=== PATIENT | female | born 1940 | race Caucasian/White ===

== ENCOUNTER 2018-09-20 10:48 | Day surgery (SDC) | payer MEDICARE ==
[2018-09-19 12:56] VITALS: BMI 44.2
[2018-09-20] MEDS ORDERED: Midazolam HCl 2 mg/2 ml Vial ONE (13:09)
[2018-09-20] MEDS ORDERED: Ketamine 50 MG/ML (10ML VIAL) ONE (13:10)
[2018-09-20] MEDS ORDERED: PROPOFOL 200 MG/20 ML VIAL ONE (16:41)
--- NOTE | 2018-09-20 19:58 | OP ---
DATE OF PROCEDURE: 09/20/2018 TITLE OF PROCEDURES: Esophagogastroduodenoscopy with biopsy. PREPROCEDURE DIAGNOSES: 1. Chronic right upper quadrant abdominal pain. 2. History of reflux. 3. History of peptic ulcer disease. POSTPROCEDURE DIAGNOSES: 1. Exam to second portion of duodenum. 2. Thickened fold in the distal esophagus from 36 to 39 cm from the incisors, biopsied. 3. No discrete esophagitis or esophageal ulcer identified. 4. Mild patchy erythema, distal stomach, biopsied. 5. Normal duodenum. 6. No evidence of gastric or duodenal ulcers. PROCEDURE IN DETAIL: Written informed consent was obtained. The patient was brought to the endoscopy suite. Total intravenous anesthesia was provided by Dr. Earlene Erazo and associates. The patient was placed in the left lateral decubitus position. A bite block was inserted into the mouth. When the patient was adequately sedated, a Pentax video therapeutic gastroscope was introduced into the oral cavity and the esophagus was carefully intubated. The gastroscope was advanced under direct visualization to the second portion of the duodenum. Endoscopic findings revealed a somewhat thickened fold in the distal esophagus extending from 36 to 39 or 40 cm from the incisors. When probed with the biopsy forceps, the fold was soft and pliable and the overlying mucosa was intact. Biopsies were obtained for histology. No esophageal ulcer was seen. The stomach was entered and carefully examined. This included a retroflex view of the cardia and fundus. Mild patchy erythema without erosion or ulcer was identified in the gastric antrum and prepyloric area. Biopsies were obtained for histology. There was no evidence of active bleeding or gastric ulceration. The duodenum from the bulb to the second portion was then examined and appeared grossly normal. The stomach was decompressed as the endoscope was completely removed from the patient. She was transferred to the PACU for postprocedure monitoring. There were no immediate complications. RECOMMENDATIONS: 1. Await biopsy results. 2. Ask the patient to call me in 1 week for biopsy results. 3. Continue Dexilant 60 mg daily. 4. Eat smaller and more frequent meals. 5. Follow up in GI clinic in 6 weeks. Job ID: [id number]
== END 2018-09-20 15:35 | disposition home or self-care (01) ==
LOC: SDC 10:48
PROVIDERS: ATTEND Internal Medicine Gastroenterology
PROC: 0DB58ZX Excision of Esophagus, Via Natural or Artificial Opening Endoscopic, Diagnostic (ICD-10-PCS; principal; 2018-09-20)
DX: R10.11 Right upper quadrant pain (principal); K31.9 Disease of stomach and duodenum, unspecified; K21.9 Gastro-esophageal reflux disease without esophagitis; R19.7 Diarrhea, unspecified; F41.9 Anxiety disorder, unspecified; M19.90 Unspecified osteoarthritis, unspecified site; J45.909 Unspecified asthma, uncomplicated; G89.29 Other chronic pain; M54.9 Dorsalgia, unspecified; I10 Essential (primary) hypertension; M35.3 Polymyalgia rheumatica; N28.9 Disorder of kidney and ureter, unspecified; G47.30 Sleep apnea, unspecified; Z79.82 Long term (current) use of aspirin; Z79.899 Other long term (current) drug therapy; Z88.0 Allergy status to penicillin; Z88.2 Allergy status to sulfonamides; Z88.8 Allergy status to other drugs, medicaments and biological substances
CPT/HCPCS: 88305; 88312; J2250; J2704

== ENCOUNTER 2019-12-06 20:30 | Inpatient (IN) | payer MEDICARE, OTHER ==
[2019-12-06] MEDS ORDERED: Vancomycin 1 GM/200 ML BAG ONE (20:59)
[2019-12-06 21:53] LABS: #Eosinphils 0.2 thou/uL (0.0-0.7); #Lymphocytes 2.2 thou/uL (1.20-3.40); #Neutrophils 7.1 thou/uL (1.40-6.50); %Basophils 0.1 % (0.0-1.0); %Eosinophils 1.6 % (0.0-10.0); %Lymphocytes 21.2 % (21.0-51.0); %Monocytes 9.5 % (0.0-10.0); %Neutrophils 67.7 % (42.0-75.0); Hemoglobin 9.1 g/dL (12.0-16.0); Mean Corpuscular HGB CONC 31.6 g/dL (32.0-36.0); Mean Corpuscular Hemoglobin 26.9 pg (27.0-31.0); Mean Platelet Volume 8.4 fL (7.4-10.4); Platelet Count 162 thou/uL (130-400); RBC Distribution Width 15.2 % (11.5-14.5); Red Blood Cell (RBC) Count 3.38 mill/uL (4.20-5.40); White Blood Cell (WBC) Count 10.5 thou/uL (4.8-10.8)
--- NOTE | 2019-12-06 21:56 | RAD ---
FRONTAL RADIOGRAPH CHEST: 12/06/19 COMPARISON: 08/06/19. HISTORY: Cellulitis. Bodyaches and chills. FINDINGS: Stable enlargement of the cardiac silhouette. No pneumothorax. Right lung appears clear. There is haz y increased density in the left base with blunting of the left costophrenic angle, suggesting nonspec ific pleural and parenchymal density, similar when compared to 08/06/19. IMPRESSION: Mild increased density in the lateral left base which could signify soft tissue attenuation, pleural thickening, volume loss, or infiltrate. Follow-up PA and lateral imaging of the chest following treat ment advised. POS: [facility]
[2019-12-06 22:00] LABS: INR-International Normal Ratio 1.4; Prothrombin Time 17.2 sec (12.0-14.7)
[2019-12-06 22:01] LABS: PTT 38.1 sec (22.9-36.1)
[2019-12-06 22:15] LABS: ALT (SGPT) 16 U/L (8-55); AST (SGOT) 17 U/L (5-34); Albumin 2.9 g/dL (3.4-4.8); Alkaline Phosphatase 55 U/L (40-110); Anion Gap 13 mmol/L (10-20); BUN (Urea Nitrogen) 29 mg/dL (9.8-20.1); Bilirubin, Total 0.7 mg/dL (0.2-1.2); Calc. Creatinine Clearance 0 mL/min (70-130); Calcium 8.4 mg/dL (7.8-10.44); Carbon Dioxide 25 mmol/L (23-31); Chloride 105 mmol/L (98-107); Estimated GFR-MDRD 36; Globulin 2.6 g/dL (2.4-3.5); Glucose 89 mg/dL (83-110); Potassium 3.6 mmol/L (3.5-5.1); Protein, Total 5.5 g/dL (6.0-8.3); Sodium 139 mmol/L (136-145)
--- NOTE | 2019-12-07 00:31 | PDOC.FPRHP ---
- History of Present Illness Chief Complaint: Fevers, Chills, Rash History of Present Illness: Patient is a 79 y/o female with a complex PMH and poor medical insight who presents to the ED for a chief complaint of fevers, chills, weakness , LE erythema, LE pain and general malaise. Patient states that she has felt like this for several days, and has noticed increased difficulty in completing her ADLs, most notably ambulation. Patient states that she typically walks with a walker at home, but has found it increasingly difficulty due to her weakness and LE pain. Patient also states that she has noticed a rash that has appeared on both of her LEs that has been slowly spreading. Patient states that all symptoms have been present for several days. Patient denies any recent illness, although she does admit to having red, swollen legs several months prior due to A-Fib. ED Course: While in the ED, patient was given 1L NS and Vancomycin 1 g IV. EKG: NSR w/ PACs, equivocal 1st Degree AV Block CXR: Mild increased density in the lateral left base which could signify soft tissue attenuation, pleural thickening, volume loss, or infiltrate - consistent with 08/06/2019 CXR. - Allergies/Adverse Reactions Allergies Allergy/AdvReac Type Severity Reaction Status Date / Time adhesive Allergy Verified 12/07/19 02:54 erythromycin base Allergy Verified 08/19/19 19:07 hydrocodone [From Lortab] Allergy Verified 08/19/19 19:07 metolazone [From Zaroxolyn] Allergy Verified 08/19/19 19:07 Penicillins Allergy Verified 08/19/19 19:07 Sulfa (Sulfonamide Allergy Verified 08/19/19 19:07 Antibiotics) tramadol [From Ultram] Allergy Verified 08/19/19 19:07 - Home Medications Medication Instructions Recorded Confirmed Type Aspirin [Aspir-Low] 2 tab PO DAILY 09/19/18 09/19/18 History Azelastine/Fluticasone [Dymista 1 spray INH BID 09/19/18 09/19/18 History Nasal [place]] Clopidogrel Bisulfate [Plavix] 75 mg PO DAILY 09/19/18 09/19/18 History DULoxetine [Cymbalta] 120 mg PO HS 09/19/18 09/19/18 History Dexlansoprazole [Dexilant] 1 tab PO QAM 09/19/18 12/07/19 History HYDROmorphone HCl [Hydromorphone 1 tab PO TID PRN 09/19/18 12/07/19 History HCl] Irbesartan 1 tab PO QAM 09/19/18 09/19/18 History Levetiracetam [levETIRAcetam] 500 mg PO BID 09/19/18 09/19/18 History Montelukast Sodium [Singulair] 10 mg PO HS 09/19/18 12/07/19 History Nitroglycerin [Nitro-Dur Patch] 0.2 mg TD DAILY 09/19/18 09/19/18 History Potassium Chloride 10 meq PO HS 09/19/18 12/07/19 History Pramipexole Di-HCl [Mirapex] 2 tab PO HS 09/19/18 12/07/19 History Spironolactone 1 tab PO ASDIR 09/19/18 12/07/19 History Tapentadol HCl [Nucynta ER] 1 tab PO BID 09/19/18 12/07/19 History predniSONE [Prednisone] 5 mg PO BID-WM 09/19/18 12/07/19 History Aluminum & Magnesium Hydroxide 30 ml PO Q4H PRN 12/07/19 12/07/19 History [Maalox] Apixaban [Eliquis] 5 mg PO BID 12/07/19 12/07/19 History Carvedilol [Coreg] 6.25 mg PO ASDIR 12/07/19 12/07/19 History Cholecalciferol (Vitamin D3) 1,000 unit PO DAILY 12/07/19 12/07/19 History [Vitamin D3] Cyanocobalamin (Vitamin B-12) 1,000 mcg PO DAILY 12/07/19 12/07/19 History [Vitamin B-12] Diltiazem HCl 30 mg PO BID-PC 12/07/19 12/07/19 History Dronedarone HCl [Multaq] 400 mg PO BID-PC 12/07/19 12/07/19 History Fluticasone/Vilanterol [Breo 1 inh IH DAILY 12/07/19 12/07/19 History Ellipta] Furosemide [Lasix] 40 mg PO ASDIR 12/07/19 12/07/19 History Hydrochlorothiazide 1 tab PO ASDIR 12/07/19 12/07/19 History Ipratropium/Albuterol Sulfate 3 ml NEB Q6H PRN 12/07/19 12/07/19 History Losartan Potassium 50 mg PO BID 12/07/19 12/07/19 History Mag Hydrox/Aluminum Hyd/Simeth 5 ml PO Q4H PRN 12/07/19 12/07/19 History [Maalox Advanced Suspension] Nitroglycerin 0.4 mg SL ASDIR PRN 12/07/19 12/07/19 History Polyethylene Glycol 3350 [Miralax] 17 gm PO DAILY PRN 12/07/19 12/07/19 History Vitamin E 400 unit PO ASDIR 12/07/19 12/07/19 History Zinc 50 mg PO DAILY 12/07/19 12/07/19 History hydrOXYzine HCl [Hydroxyzine HCl] 25 mg PO Q6H PRN 12/07/19 12/07/19 History - History PMHx: A-Fib PSHx: Cholecystectomy FHx: Mother (DM2) Social: Denies x3. Lives at home with her . Code: Full Note: Patient is a regrettably poor historian and has limited medical insight. - Review of Systems General: reports: fever/chills, fatigue Eyes: reports: vision changes ENT: denies: rhinorrhea Respiratory: reports: shortness of breath, exercise intolerance. denies: cough Cardiovascular: reports: edema. denies: chest pain, palpitation Gastrointestinal: denies: nausea, vomiting, diarrhea, constipation, abdominal pain Genitourinary: denies: dysuria, polyuria Skin: reports: rashes Musculoskeletal: reports: pain, swelling Neurological: denies: syncope - Vital signs BP: [128/89] HR: [82] RR: [21] Tmax: [101.9] Pox: [99]% on [Room] Wt: [107 kg ] - Physical Exam Constitutional: NAD, awake, alert and oriented, well developed HEENT: normocephalic and atraumatic, PERRLA, EOMI, conjunctiva clear, no scleral icterus, grossly normal vision, grossly normal hearing, normal nasal mucosa, MMM, oropharynx clear -HEENT: Poor dentition Neck: supple, FROM, no LAD, no thyromegaly Chest: no-tender to palpation, no lesions Heart: RRR, normal S1/S2, pulses present, other (3/6 Systolic Ejection Murmur) Lungs: CTAB, no respiratory distress, good air movement, no rales/rhonchi, no wheezing, no retractions Abdomen: soft, non-tender, bowel sounds present, no masses/distention Neurological: no focal deficit Skin: other (Circumferential rash from the ankles to the knees on both LEs, left > right. No obvious lesions or infectious points of entry. No bleeding or oozing. Diffuse TTP.) Heme/Lymphatic: no LAD Psychiatric: other (Poor historian.) FMR H&P: Results - Labs Result Diagrams: 12/07/19 02:15 12/07/19 02:15 Lab results: WBC 10.5 thou/uL (4.8-10.8) 12/06/19 21:36 Hgb 9.1 g/dL (12.0-16.0) L 12/06/19 21:36 Hct 28.8 % (36.0-47.0) L 12/06/19 21:36 MCV 85.0 fL (78.0-98.0) 12/06/19 21:36 Plt Count 162 thou/uL (130-400) 12/06/19 21:36 Neutrophils % 67.7 % (42.0-75.0) 12/06/19 21:36 Sodium 139 mmol/L (136-145) 12/06/19 21:36 Potassium 3.6 mmol/L (3.5-5.1) 12/06/19 21:36 Chloride 105 mmol/L (98-107) 12/06/19 21:36 Carbon Dioxide 25 mmol/L (23-31) 12/06/19 21:36 BUN 29 mg/dL (9.8-20.1) H 12/06/19 21:36 Creatinine 1.41 mg/dL (0.6-1.1) H 12/06/19 21:36 Glucose 89 mg/dL (83-110) 12/06/19 21:36 Lactic Acid 0.7 mmol/L (0.5-2.2) 12/06/19 21:36 Calcium 8.4 mg/dL (7.8-10.44) 12/06/19 21:36 Total Bilirubin 0.7 mg/dL (0.2-1.2) 12/06/19 21:36 AST 17 U/L (5-34) 12/06/19 21:36 ALT 16 U/L (8-55) 12/06/19 21:36 Alkaline Phosphatase 55 U/L (40-110) 12/06/19 21:36 Serum Total Protein 5.5 g/dL (6.0-8.3) L 12/06/19 21:36 Albumin 2.9 g/dL (3.4-4.8) L 12/06/19 21:36 - EKG Interpretation EKG: NSR w/ PACs, and equivocal 1st Degree AV Block - Radiology Interpretation Chest x-ray Status: image reviewed by me, report reviewed by me (See ER Course) FMR H&P: A/P - Problem List (1) Sepsis Current Visit: Yes Status: Acute Code(s): A41.9 - SEPSIS, UNSPECIFIED ORGANISM Qualifiers: Sepsis type: sepsis due to unspecified organism Sepsis acute organ dysfunction status: with acute organ dysfunction Severe sepsis acute organ dysfunction type: acute renal failure Acute renal failure type: unspecified Severe sepsis shock status: without septic shock Qualified Code(s): A41.9 - Sepsis, unspecified organism; R65.20 - Severe sepsis without septic shock; N17.9 - Acute kidney failure, unspecified (2) A-fib Current Visit: Yes Status: Chronic Code(s): I48.91 - UNSPECIFIED ATRIAL FIBRILLATION (3) SERENA (acute kidney injury) Current Visit: Yes Status: Acute Code(s): N17.9 - ACUTE KIDNEY FAILURE, UNSPECIFIED (4) Obesity Current Visit: Yes Status: Chronic Code(s): E66.9 - OBESITY, UNSPECIFIED - Plan Patient is a 79 y/o female with a PMH significant for A-Fib who presents to the ED for evaluation of fevers, chills and LE weakness and rash. # Sepsis -Documented fever (101.9 F) with tachycardia and tachypnea in ED -Suspect LEs as likely source of infection - Bilateral Cellulitis vs. Thrombophlebitis vs. Erysipelas -Patient denies known PMH significant for CHF or DM2 -s/p Vancomycin 1 g in ED - will continue -WBC: 10.5 w/ Left Shift -Procal: Pending -Lactic Acid: 0.7 -BNP: 155 - baseline unknown -D-Dimer: 0.29 -BCx: Pending -UCx: Pending -PT/OT Consults: Pending # SERENA vs. CKD -Cr: 1.41 - baseline unknown -Will order FeNa studies -Will renally dose all medications # Normocytic Anemia -H.1 / Hct: 28.8 -Ferritin: Pending -TIBC: Pending -%TIBC: Pending -Serum Fe: # A-Fib -Patient states that she is on Eliquis but is unsure of dosage -INR: 1.4 -Will restart home Eliquis regimen and titrate accordingly based on weight PCP: CC Code: DNAR Diet: HH VTE PPx: Home Eliquis Activity: Strict Bed Rest Dispo: Patient is currently stable and admitted to the Medical Floor for ongoing evaluation for Sepsis, like secondary to an infection of the lower extremities. Will await additional lab results and continue ABx as per above. Will also try to contact patient's pharmacy or [id number] in order to understand more about PMH and current medication regimen. Expected LOS > 48H FMR H&P: Upper Level - Plan Date/Time: 12/07/19 0029 I, [], have evaluated this patient and agree with findings/plan as outlined by technology development intern resident. Pertinent changes/additions are listed here. Addendum - Attending - Attending Attestation Date/Time: 12/07/19 0729 I personally evaluated the patient and discussed the management with Dr. Sheriff. I agree with the History, Examination, Assessment and Plan documented above with any addition or exceptions noted below. Patient with currently unknown PMH here with b/l LE redness and pain. She has 2 + edema, but also evidence of cellulitis on exam. She has low grade temperatures , vitals otherwise stable. She received IVF in the ED and reports taking a "fluid pill" at home, suspect she may have some volume overload. Will administer Lasix and med rec ZAY. Continue abx and await cultures. She also reports history of CHRISSIE and we will attempt to get her CPAP tonight.
[2019-12-07] MEDS ORDERED: Ondansetron PF 4 MG/2 ML Vial IVP PRN (00:42)
[2019-12-07] MEDS ORDERED: Ondansetron ODT 4 MG TAB SL PRN (00:42)
[2019-12-07] MEDS ORDERED: Ondansetron ODT 4 MG TAB PO PRN (01:04)
[2019-12-07] MEDS ORDERED: Calcium Carbonate 500 MG ChewTAB PO PRN (01:04)
[2019-12-07 01:45] VITALS: BMI 38.9
[2019-12-07 02:21] LABS: #Eosinphils 0.2 thou/uL (0.0-0.7); #Lymphocytes 2.2 thou/uL (1.20-3.40); #Neutrophils 6.7 thou/uL (1.40-6.50); %Basophils 0.3 % (0.0-1.0); %Eosinophils 1.7 % (0.0-10.0); %Lymphocytes 21.6 % (21.0-51.0); %Monocytes 9.9 % (0.0-10.0); %Neutrophils 66.5 % (42.0-75.0); Hemoglobin 10.1 g/dL (12.0-16.0); Mean Corpuscular HGB CONC 32.2 g/dL (32.0-36.0); Mean Corpuscular Hemoglobin 27.6 pg (27.0-31.0); Mean Corpuscular Volume 85.5 fL (78.0-98.0); Mean Platelet Volume 7.7 fL (7.4-10.4); Platelet Count 142 thou/uL (130-400); RBC Distribution Width 15.1 % (11.5-14.5); Red Blood Cell (RBC) Count 3.66 mill/uL (4.20-5.40); White Blood Cell (WBC) Count 10.1 thou/uL (4.8-10.8)
[2019-12-07 02:38] LABS: Iron 21 ug/dL (50-170); Iron Binding Capacity, Total 343 mcg/dL (265-497)
[2019-12-07] MEDS: Sodium Chloride 0.9% 1,000 ML IV SCH ×2 (02:40→11:21)
[2019-12-07 02:41] LABS: Anion Gap 17 mmol/L (10-20); BUN (Urea Nitrogen) 26 mg/dL (9.8-20.1); Calc. Creatinine Clearance 56 mL/min (70-130); Calcium 8.5 mg/dL (7.8-10.44); Carbon Dioxide 24 mmol/L (23-31); Chloride 105 mmol/L (98-107); Estimated GFR-MDRD 37; Glucose 82 mg/dL (83-110); Potassium 3.7 mmol/L (3.5-5.1); Sodium 142 mmol/L (136-145)
--- NOTE | 2019-12-07 04:43 | PDOC.BPN ---
- Brief Progress Note At approximately 0415, the Resident Night Team was notified that patient was experiencing increased work of breathing and was tachycardic to the 120s. The Resident Night Team immediately requested a STAT EKG, Trops, Mg and Phos and proceeded to evaluate the patient at bedside. The patient was found to be in moderate respiratory distress in comparison to the patient's previous evaluation , and was visibly uncomfortable and relying on accessory muscles of respiration to breath. Physical exam was notable for diffuse expiratory wheezing throughout the middle to lower lung kovacs, and the patient complained only of SOB without endorsing chest pain, visual disturbances, nausea or ABD pain. RT was notified and a verbal order was given for [place]. Will continue to monitor the situation closely and alter the plan of care as needed.
[2019-12-07 05:35] LABS: Magnesium 1.8 mg/dL (1.6-2.6); Phosphorus 3.5 mg/dL (2.3-4.7)
[2019-12-07 05:41] LABS: Troponin I 0.101 ng/mL (< 0.028)
--- NOTE | 2019-12-07 05:59 | PDOC.FM ---
- Subjective Subjective: Pt states she was at home yesterday and was feeling short of breath, very weak and had LE pain. She said her temp at home was 102F. She says her breathing is better today after the duoneb. She was sleepy during exam. - Objective Vital Signs & Weight: Vital Signs (12 hours) Pulse Resp Pulse Ox 12/07/19 04:40 106 H 32 H 99 Weight Weight 106.282 kg Result Diagrams: 12/07/19 09:04 12/07/19 09:04 Phys Exam - Physical Examination tachypnic HEENT: moist MMs Neck: no JVD, supple Respiratory: no wheezing tachypnic Cardiovascular: RRR 2/6 systolic murmur, best heard right sternal border Gastrointestinal: soft, non-tender Musculoskeletal: pulses present Neurological: non-focal Psychiatric: normal affect Deviation from normal: bilat LE erythema, worse on left Dx/Plan - Plan Plan: Patient is a 79 y/o female with a PMH significant for A-Fib who presents to the ED for evaluation of fevers, chills and LE weakness and rash. # Sepsis 2/2 Cellulitis -Documented fever (101.9 F) with tachycardia and tachypnea in ED -Patient denies known PMH significant for CHF or DM2, will obtain records from REHABILITATION DIRECTOR -Vancomycin and Clindamycin -WBC: 10.5 w/ Left Shift -Procal: 0.44 -Lactic Acid: 0.7 -BNP: 155 - baseline unknown -D-Dimer: 0.29 -BCx and UCx pending -PT/OT Consults: Pending #Tachypnea -became tachypnic overnight. Likely due to fluid overload. Questionable hx of CHF -gave one time lasix 40mg, will reassess # SERENA vs. CKD -Cr: 1.41-->1.37 - baseline unknown -Will order FeNa studies -Will renally dose all medications # Normocytic Anemia -Fe 21 -unsure of hx of anemia and if on any medications, will obtain records from REHABILITATION DIRECTOR # A-Fib -Patient states that she is on Eliquis but is unsure of dosage -INR: 1.4 -Will restart home Eliquis regimen and titrate accordingly based on weight PCP: CC Code: DNAR Diet: HH VTE PPx: Home Eliquis Dispo: Pt admitted to medical, inpatient for Sepsis 2/2 cellulitis, stable, LOS> 48hrs Addendum - Attending - Attending Attestation Date/Time: 12/07/19 0803 I personally evaluated the patient and discussed the management with Dr. Valente. I agree with the History, Examination, Assessment and Plan documented above with any addition or exceptions noted below. Patient reports being tired, but feeling somewhat better. She appears volume overloaded on exam. Will diurese mildly until we can figure out her home med regimen. Continue Vanc for LE cellulitis. Further mgmt pending determination of chronic med problems and clinical course.
[2019-12-07] MEDS ORDERED: Furosemide 40 MG/4 ML VIAL SLOW IVP SCH (07:15)
[2019-12-07] MEDS ORDERED: Prevnar 13-Val Conj/PF 0.5 ML SYRINGE IM ONE (09:00)
[2019-12-07] MEDS ORDERED: Apixaban 2.5 MG TAB PO SCH (09:00)
[2019-12-07] MEDS ORDERED: Apixaban 5 MG TAB PO SCH (09:00)
[2019-12-07 09:15] LABS: Hemoglobin 9.6 g/dL (12.0-16.0); Platelet Count 153 thou/uL (130-400)
[2019-12-07] MEDS ORDERED: Enoxaparin Sodium 100 MG/ML SYRINGE SC SCH (11:30)
--- NOTE | 2019-12-07 12:27 | RAD ---
CHEST 1 VIEW: Date: 12/07/2019 HISTORY: Chest pain. COMPARISON: 12/06/2019. FINDINGS: Minimal cardiomegaly. Stable blunting in the left costophrenic angle and minimal linear and parenchym al changes in the right mid lung zone. IMPRESSION: Stable cardiomegaly and blunting in the left costophrenic angle with minimal increased markings, but no confluent pneumonia, overt edema, pleural effusion, or other acute process. POS: [facility]
[2019-12-07] MEDS: Clindamycin/D5W 300 MG in Premix Bag 1 BAG IVPB SCH ×2 (13:53→18:12)
[2019-12-07 15:44] LABS: CKMB 2.2 ng/mL (0-6.6)
--- NOTE | 2019-12-07 20:22 | CON ---
DATE OF CONSULTATION: 12/07/2019 INDICATION FOR CONSULTATION: A 79-year-old female with multiple medical problems who was seen in the hospital for lower extremity edema and cellulitis, but then complained of some chest uncomfortable feeling. She did not describe it as pain. However, her cardiac enzymes are indeterminate. Her troponin I was 0.1, increased up to 0.8. She recently had a cardiac catheterization back in August of this year over [facility] by Dr. Victor Hugo Jean. We do not have those records available at this time, but otherwise she appears to be relatively stable. She does have reproducible chest pain also on my examination in that same area and she said that she feels an uncomfortable feeling when she tries to take a deep breath, but does have chest wall tenderness. She also has a long history of fibromyalgia, which may be contributing some to the uncomfortable feeling, but certainly it would be advisable to obtain the recent cardiac catheterization to determine the extent of any possible underlying coronary artery disease. At this time, the most significant problem appears to be her cellulitis in the lower extremities. I have seen this lady many years ago due to chronic lower extremity edema. She underwent a left greater saphenous vein ablation by me. I did not feel that further intervention would be indicated as she did not receive very much benefit from the procedure and then she apparently was seen by a physician in [place]. I believe he comes from [place] who then subsequently proceeded to close down the rest of the veins in her legs and she said she had several different procedures performed and still the legs did not have any improvement. It is unlikely at this time that she has coronary artery disease that she would have any conduits left for bypass surgery if it is needed. PAST MEDICAL HISTORY: Significant for peptic ulcer disease, possible myocardial infarction in the past, chronic pain syndrome, polymyalgia rheumatica, intermittent cellulitis, lymphedema. She has had TIAs in the past. She has gastroesophageal reflux disease. She has COPD in the form of asthma. She has morbid obesity. She has also had a fracture of the left wrist and she had the neurostimulator removed. She has history of giant cell arteritis. She has had some thyroid nodules. She has also had a breast biopsy and she has had a left eyebrow basal cell carcinoma removed. PAST SURGICAL HISTORY: Include appendectomy, bladder surgery, breast biopsy. She has had cervical disk fusions. She has had a cholecystectomy, a d and C x2, hiatal hernia. She has had internal fixation of her ankle in 1991. She had venous ablation by me in 2011 and subsequently had multiple further other ablations in [place] in subsequent years. She has had low back surgery. She has had a nerve stimulator placed in the back. She has had bilateral cataract surgery. MEDICATIONS: Include: 1. Dexilant. 2. MiraLAX powder. 3. Eliquis 5 mg b.i.d. 4. Coreg 6.25 mg b.i.d. 5. Pramipexole 0.5 mg tablets once a day. 6. Aldactone 25 mg on Monday, Monday, Fridays. 7. Lasix 40 mg b.i.d. 8. Maalox. 9. Prednisone 5 mg b.i.d. 10. Potassium 10 mEq daily. 11. She also takes Nucynta ER 200 mg tablets every 12 hours. 12. Dilaudid as needed 2 or 3 times a day. 13. She is on Singulair 10 mg tablets. 14. Hydroxyzine HCL 25 mg every 6 hours p.r.n. as needed. 15. Multaq 400 mg b.i.d. 16. Diltiazem 30 mg b.i.d. 17. Losartan 50 mg b.i.d. 18. Breo Ellipta nebulizer. 19. Nitroglycerin p.r.n. as needed. 20. Albuterol/ipratropium inhaler. 21. Maalox as needed. 22. Vitamin B12. 23. Vitamin D3. 24. Zinc. 25. Vitamin E. 26. She also takes I believe folic acid. ALLERGIES: SHE IS ALLERGIC TO TYLENOL, ADHESIVE, ERYTHROMYCIN, FENTANYL, HYDROCODONE, METOLAZONE, PENICILLIN, SULFA, TRAMADOL, VICODIN, ZAROXOLYN. REVIEW OF SYSTEMS: EYES: She says that she does have some problems with the left eye. She feels that she has some nodules at times but is not always present. It comes and goes. PULMONARY: She complains of some shortness of breath occasionally, but no significant problems. No significant changes. CARDIOVASCULAR: She has complained of the uncomfortable feeling in her chest and occasional palpitations, but has had no santosh chest pain. She denies any new GI complaints or complaints. EXTREMITIES: She did complain of the swelling in her legs to the point that she is almost unable to walk due to the discomfort from the feet all the way up to the knees. She has been going to wound care in [place] until the COVID virus, but since that time has not been back. Previously the legs were wrapped and she was getting some improvement. PHYSICAL EXAMINATION: GENERAL: Reveals an elderly female. She is in no acute distress at this time. She is alert. She is oriented. She is very pleasant. VITAL SIGNS: Her blood pressure was 127/59, heart rate is 90 and shows a sinus rhythm, temperature is 99, respiratory rate is 20, O2 saturations 96%. HEENT: Shows the head to be normocephalic and atraumatic. Carotid pulses are present. I cannot hear any bruits. CHEST: Actually appeared to be clear to auscultation. I did not hear any significant rales, rhonchi, or wheezing. CARDIOVASCULAR: Reveals a regular rate and rhythm at this time. There were no significant murmurs, heaves, thrills, bruits or rubs. ABDOMINAL: Shows morbid obesity. Positive bowel sounds are present. There was no organomegaly or masses noted. EXTREMITIES: Difficult to palpate femoral pulses. I could not palpate the pedal pulses due to the edema. She does also has bilateral lower extremity erythema and redness with some edema compatible with cellulitis. The left leg appears to be more significant than the right. NEUROLOGICAL: She appears to be intact. There were no gross focal motor deficits noted. The legs were history of giant cell arteritis. She has had some thyroid nodules. She has also had a breast biopsy and she has had a left eyebrow basal cell carcinoma removed. not wrapped. LABORATORY DATA: Shows WBC of 10.1, hemoglobin is 9.6, hematocrit 30.6, platelet count is 153,000. INR is 1.4. Her sodium was 142, potassium 3.7, BUN 26, creatinine was 1.37, decreased down to 1.28, blood sugar was 82. Troponin I as noted above was 0.101, increased up to 0.860. DIAGNOSTIC STUDIES: Her EKG shows a sinus rhythm with a first-degree AV heart block and some nonspecific T-wave changes but no acute changes were noted. She did have occasional PACs. Chest x-ray shows some cardiomegaly with what appears to be a small left pleural effusion. IMPRESSION: 1. Elderly female with some what she describes as chest uncomfortable feelings, but no significant pain. She has recently had a cardiac catheterization at [facility] and we will need to obtain those records. Most likely we will not be able to get those until Monday since the medical records have recently switched over to [place] and the old records will need to be checked through medical records apparently. At this time, I would just continue to monitor her and trend the enzymes and see how she does. I agree with her present medications. She is on a beta ela already. 2. Cellulitis, which will be dealt with by the primary care service. She does have chronic lower extremity edema and had this for many years. She will obviously need to keep the legs wrapped and keep them elevated as much as possible. I have advised her in the past many years ago when I saw her that she needs to lose weight and unfortunately she has gained more weight since I saw her in the past. 3. History of chronic pain syndrome and polymyalgia rheumatica, which may also be playing into some of her discomfort. At this time there is no further changes that I would make in her care. She could certainly undergo an echocardiogram if it has not been done recently at [facility] just for completeness to evaluate her left ventricular systolic function. We are more than happy to continue to follow this lady with you. Job ID: [id number]
[2019-12-07] MEDS ORDERED: Vancomycin HCl 1.25 GM in Sodium Chloride 0.9% 250 ML 250 ML IVPB SCH (22:00)
[2019-12-08] MEDS: Clindamycin/D5W 300 MG in Premix Bag 1 BAG IVPB SCH ×4 (01:42→17:56)
[2019-12-08 04:39] LABS: #Eosinphils 0.2 thou/uL (0.0-0.7); #Lymphocytes 1.6 thou/uL (1.20-3.40); #Monocytes 0.8 thou/uL (0.11-0.59); #Neutrophils 4.2 thou/uL (1.40-6.50); %Basophils 0.2 % (0.0-1.0); %Eosinophils 3.1 % (0.0-10.0); %Lymphocytes 23.4 % (21.0-51.0); %Monocytes 11.1 % (0.0-10.0); %Neutrophils 62.2 % (42.0-75.0); Hemoglobin 8.9 g/dL (12.0-16.0); Mean Corpuscular HGB CONC 31.4 g/dL (32.0-36.0); Mean Platelet Volume 7.6 fL (7.4-10.4); Platelet Count 132 thou/uL (130-400); White Blood Cell (WBC) Count 6.8 thou/uL (4.8-10.8)
[2019-12-08 04:53] LABS: Anion Gap 12 mmol/L (10-20); BUN (Urea Nitrogen) 15 mg/dL (9.8-20.1); Calc. Creatinine Clearance 74 mL/min (70-130); Calcium 7.9 mg/dL (7.8-10.44); Carbon Dioxide 25 mmol/L (23-31); Chloride 105 mmol/L (98-107); Estimated GFR-MDRD 52; Glucose 99 mg/dL (83-110); Sodium 139 mmol/L (136-145)
--- NOTE | 2019-12-08 06:18 | PDOC.FM ---
- Subjective Subjective: Pt complains of leg pain, worse on left, moving up into thigh area. She denies any CP or SOB. - Objective Vital Signs & Weight: Vital Signs (12 hours) Temp Pulse Pulse Pulse Resp BP BP 12/08/19 03:30 98.3 F 83 18 12/08/19 00:01 12/08/19 00:00 99.7 F H 12/07/19 19:35 12/07/19 19:34 99.5 F 90 18 12/07/19 18:49 90 19 12/07/19 18:42 88 91 127/59 L 123/58 L BP Pulse Ox Pulse Ox 12/08/19 03:30 147/63 H 98 12/08/19 00:01 98 12/08/19 00:00 12/07/19 19:35 100 12/07/19 19:34 122/56 L 100 12/07/19 18:49 98 12/07/19 18:42 100 Weight Weight 105.007 kg I&O: 12/06/19 12/07/19 12/08/19 06:59 06:59 06:59 Intake Total 1480 Output Total 1950 Balance -470 Result Diagrams: 12/08/19 04:31 12/08/19 04:31 Phys Exam - Physical Examination Constitutional: NAD HEENT: moist MMs, sclera anicteric Neck: no JVD, supple Respiratory: no wheezing, clear to auscultation bilateral irregular rhythm, normal rate Gastrointestinal: soft, positive bowel sounds tender to palpation of LE Neurological: non-focal Psychiatric: normal affect Deviation from normal: erythema, edema and warmth of both LE, worse on left Dx/Plan - Plan Plan: Patient is a 79 y/o female with a PMH significant for A-Fib who presents to the ED for evaluation of fevers, chills and LE weakness and rash. # Sepsis 2/2 Cellulitis -fever Tmax 102, currently afebrile -pain, erythema and edema of both LE, today complains of increased pain of LLE up to thigh. Will order venous doppler bilat -Patient denies known PMH significant for CHF or DM2, will obtain records from [facility] CO[facility] -Vancomycin and Clindamycin -Procal: 0.44 -Lactic Acid: 0.7 -BNP: 155 - baseline unknown -D-Dimer: 0.29 -BCx and UCx pending -PT/OT Consults: Pending #NSTEMI Type 2 -cards consulted- will try to obtain med records from [facility] for cardiac cath she had done. Dr Justin held the lovenox -trop 0.8 and 0.9. Moved from medical floor to tele -will restart home meds: eliquis, carvedilol and diltiazem, multaq #Tachypnea -resolved -Likely due to fluid overload. Questionable hx of CHF -gave one time lasix 40mg, will reassess # SERENA vs. CKD -Cr: 1.41-->1.37 - baseline unknown -Will order FeNa studies -Will renally dose all medications # Normocytic Anemia -Fe 21 -unsure of hx of anemia and if on any medications, will obtain records from [facility] # A-Fib -Patient states that she is on Eliquis but is unsure of dosage -INR: 1.4 -Will restart home Eliquis regimen and titrate accordingly based on weight PCP: CC Code: DNAR Diet: HH VTE PPx: Home Eliquis Dispo: Inpatient, tele, NSTEMI and Sepsis 2/2 cellulitis, stable, LOS>48hrs Addendum - Attending - Attending Attestation Date/Time: 12/08/19 5680 I personally evaluated the patient and discussed the management with Dr. Valente. I agree with the History, Examination, Assessment and Plan documented above with any addition or exceptions noted below. Patient overall stable. Continues to have LLE pain and her redness is overall stable. Suspect it will improve with continued IV abx as well as diuretic to remove some of her fluid. She is also having stable respiratory status, down to 2L. Suspect this is due to her cardiac status and mild volume overload. Continue to monitor. Cardiology on board due to NSTEMI, suspect this is type 2 from demand but awaiting further input from cardiology.
[2019-12-08] MEDS ORDERED: Carvedilol 6.25 MG TAB PO SCH ×2 (08:15→09:00)
[2019-12-08] MEDS: Apixaban 5 MG TAB PO SCH ×2 (08:58→21:30)
[2019-12-08 09:50] LABS: Critical Call Chem Troponin I RESULT DECREASING; Troponin I 0.745 ng/mL (< 0.028)
[2019-12-08] MEDS ORDERED: Potassium Chloride 20 MEQ in Premix Bag 1 BAG IVPB SCH (10:00)
--- NOTE | 2019-12-08 10:01 | ULT ---
ULTRASOUND DOPPLER DUPLEX VENOUS BILATERAL LOWER EXTREMITIES: DATE: 12/08/2019 HISTORY: 79-year-old female with bilateral lower extremity pain, edema, and erythema TECHNIQUE: Grayscale, color-flow, and spectral analysis, of major veins of bilateral lower extremities. FINDINGS: There is demonstration of blood flow with normal compressibility, of the bilateral common femoral, pr ofunda femoral, greater saphenous, femoral, popliteal, and posterior tibial, veins. IMPRESSION: No deep venous thrombosis of bilateral lower extremities.
[2019-12-08] MEDS: Potassium Chloride 20 MEQ in Premix Bag 2 BAG IVPB SCH ×2 (10:39→14:02)
[2019-12-08] MEDS ORDERED: Diltiazem HCl 125 MG, Admixture Fee 1 EACH in Sodium Chloride 0.9% 100 ML IVPB SCH ×2 (12:15→16:24)
[2019-12-08] MEDS ORDERED: Potassium Chloride 20 MEQ in Premix Bag 2 BAG IVPB SCH (14:00)
[2019-12-08] MEDS: Furosemide 40 MG TAB PO SCH (15:52)
[2019-12-08] MEDS: predniSONE 5 MG TAB PO SCH (15:52)
--- NOTE | 2019-12-08 16:25 | PDOC.CPN ---
- Subjective Date: 12/08/19 Time: 16:37 Interval history: The pt seen and examined. No overnight events. No cardiac complaints. - Objective Allergies/Adverse Reactions: Allergies Allergy/AdvReac Type Severity Reaction Status Date / Time adhesive Allergy Verified 12/07/19 02:54 erythromycin base Allergy Verified 08/19/19 19:07 hydrocodone [From Lortab] Allergy Verified 08/19/19 19:07 metolazone [From Zaroxolyn] Allergy Verified 08/19/19 19:07 Penicillins Allergy Verified 08/19/19 19:07 Sulfa (Sulfonamide Allergy Verified 08/19/19 19:07 Antibiotics) tramadol [From Ultram] Allergy Verified 08/19/19 19:07 Visit Medications: Current Medications Acetaminophen (Tylenol) 650 mg PO Q4H PRN PRN Reason: Headache/Fever/Mild Pain (1-3) Albuterol/Ipratropium (Duoneb) 3 ml NEB [id number] RAFA Last Admin: 12/08/19 13:22 Dose: 3 ml Apixaban (Eliquis) 5 mg PO BID [facility] Last Admin: 12/08/19 08:58 Dose: 5 mg Calcium Carbonate (Tums) 1,000 mg PO Q4H PRN PRN Reason: Heartburn or Indigestion Carvedilol (Coreg) 6.25 mg PO 0900 [facility] Last Admin: 12/08/19 08:58 Dose: 6.25 mg Diltiazem HCl (Cardizem) 30 mg PO BID-PC RAFA Dronedarone (Multaq) 400 mg PO BID-PC RAFA Furosemide (Lasix) 40 mg PO 0900,1400 [facility] Last Admin: 12/08/19 15:52 Dose: 40 mg Vancomycin HCl 1.25 gm/ Sodium (Chloride) 250 mls @ 166.67 mls/hr IVPB Q24H RAFA Last Admin: 12/07/19 22:33 Dose: 250 mls Clindamycin Phosphate/Dextrose (300 mg/ Device) 50 mls @ 100 mls/hr IVPB Q6HR RAFA Last Admin: 12/08/19 13:12 Dose: 50 mls Diltiazem HCl 125 mg/Miscellaneous Medication 1 each/ Sodium Chloride 125 mls @ 5 mls/hr IVPB INF RAFA; Protocol Losartan Potassium (Cozaar) 50 mg PO BID RAFA Miscellaneous Medication (Pharmacy To Dose) 1 each IVPB PRN PRN PRN Reason: Pharmacy to dose Ondansetron HCl (Zofran Odt) 4 mg PO Q6H PRN PRN Reason: Nausea/Vomiting Pramipexole Dihydrochloride (Mirapex) 0.5 mg PO HS RAFA Prednisone (Prednisone) 5 mg PO BID-WM [facility] Last Admin: 12/08/19 15:52 Dose: 5 mg Sodium Chloride (Flush - Normal Saline) 10 ml IVF Q12HR RAFA Last Admin: 12/08/19 10:40 Dose: 10 ml Sodium Chloride (Flush - Normal Saline) 10 ml IVF PRN PRN PRN Reason: Saline Flush [facility]) [facility] Vital Signs & Weight: Vital Signs Temp Pulse Resp BP BP BP Pulse Ox 12/08/19 13:22 92 22 H 12/08/19 11:49 98.5 F 134 H 24 H 132/84 99 12/08/19 08:58 137/63 12/08/19 08:00 99.9 F H 146 H 20 108/55 L 100 12/08/19 06:36 86 16 Weight 231 lb 8 oz - Physical Exam General: alert & oriented x3 HEENT: mucus membranes moist Neck: supple neck Cardiac: irregularly regular Lungs: decreased breath sounds Extremities: other: - Labs Result Diagrams: 12/08/19 04:31 12/08/19 04:31 Troponin/CKMB CK-MB (CK-2) 2.2 ng/mL (0-6.6) 12/07/19 14:29 Troponin I 0.745 ng/mL (< 0.028) H* 12/08/19 04:31 - Telemetry Sinus rhythms and dysrhythmias: sinus rhythm - Assessment/Plan Assessment/Plan: 1. Chest discomfort - asymptomatic today; waiting for cath report from Dr Jean 's office 2. elevated trop - possible 2/2 Type 2 NSTEMI; waiting for cath report 3. persistent Afib - converted back to SR around 1300 on 12/08/2019; well controlled HR with coreg, Multaq, diltiazem; On Eliquis 5mg BID. 4. Sepsis 2/2 Cellulitis - on ABX 5. COPD/Asthma 6. SERENA on CKD - improving 7. hx of peptic ulcer disease 8. hx of TIA 9. Hx of Anemia 10. Obese MAR reviewed * Dr Jean's pt * Code: DNAR Pt. seen and eval. by me. I agree with the A/P by the CLINICAL EDUCATION COORDINATOR. RRR, minimal bibasilar rales noted. gjm
[2019-12-08] MEDS: Dronedarone HCl 400 MG TAB PO SCH (17:56)
[2019-12-08] MEDS: Acetaminophen 325 MG TAB PO PRN ×2 (17:57→21:31)
[2019-12-08] MEDS: Carvedilol 6.25 MG TAB PO SCH (21:30)
[2019-12-08] MEDS: Pramipexole Di-HCl 0.25 MG TAB PO SCH (21:30)
[2019-12-08] MEDS: Losartan 25 MG TAB PO SCH (21:30)
[2019-12-08 21:31] LABS: Vancomycin, Trough 8.6 ug/mL
[2019-12-08] MEDS: Vancomycin HCl 1.75 GM in Sodium Chloride 0.9% 500 ML IVPB SCH (22:37)
[2019-12-09] MEDS: Clindamycin/D5W 300 MG in Premix Bag 1 BAG IVPB SCH ×2 (01:31→05:13)
[2019-12-09 05:16] LABS: #Eosinphils 0.1 thou/uL (0.0-0.7); #Lymphocytes 1.1 thou/uL (1.20-3.40); #Monocytes 0.8 thou/uL (0.11-0.59); %Basophils 0.3 % (0.0-1.0); %Eosinophils 1.8 % (0.0-10.0); %Monocytes 11.4 % (0.0-10.0); %Neutrophils 71.4 % (42.0-75.0); Hemoglobin 8.4 g/dL (12.0-16.0); Mean Corpuscular HGB CONC 32.5 g/dL (32.0-36.0); Mean Corpuscular Hemoglobin 27.7 pg (27.0-31.0); Mean Corpuscular Volume 85.2 fL (78.0-98.0); Mean Platelet Volume 8.1 fL (7.4-10.4); Platelet Count 140 thou/uL (130-400); RBC Distribution Width 14.9 % (11.5-14.5); Red Blood Cell (RBC) Count 3.05 mill/uL (4.20-5.40)
[2019-12-09 05:24] LABS: Anion Gap 11 mmol/L (10-20); BUN (Urea Nitrogen) 13 mg/dL (9.8-20.1); Calc. Creatinine Clearance 76 mL/min (70-130); Calcium 7.9 mg/dL (7.8-10.44); Carbon Dioxide 26 mmol/L (23-31); Chloride 107 mmol/L (98-107); Estimated GFR-MDRD 53; Glucose 113 mg/dL (83-110); Potassium 3.6 mmol/L (3.5-5.1); Sodium 140 mmol/L (136-145)
--- NOTE | 2019-12-09 06:04 | PDOC.FM ---
- Subjective Subjective: Patient states that lying in the bed all the time is "miserable" but she is feeling a bit better. She explains her breathing has improved and the treatments seem to help. She complains of LE pain with the left side worse than the right. Overnight patient had a temperature of 102.9 which responded to tylenol. - Objective Vital Signs & Weight: Vital Signs (12 hours) Temp Pulse Resp BP Pulse Ox 12/09/19 03:17 97.6 F 77 18 103/53 L 12/09/19 01:14 98.1 F 12/09/19 00:53 95 12/08/19 19:26 100.4 F H 94 18 125/56 L 100 12/08/19 18:38 96 Weight Weight 105.007 kg 2L nasal cannula I&O: 12/07/19 12/08/19 12/09/19 06:59 06:59 06:59 Intake Total 1480 Output Total 1950 Balance -470 Result Diagrams: 12/09/19 04:47 12/09/19 04:47 Additional Labs: Laboratory Tests 12/07/19 12/07/19 12/08/19 12:35 12:35 20:51 Urine Creatinine 36.74 L Urine Sodium 106 Vancomycin Trough 8.6 FeNa - 21% Phys Exam - Physical Examination Respiratory: wheezing present (bilateral expiratory wheezing) Cardiovascular: RRR, no significant murmur Gastrointestinal: soft, non-tender erythema, edema, warmth bilateral LE, L worse than R swelling and redness improved based on marker abraham Psychiatric: normal affect Dx/Plan - Plan Plan: Patient is a 79 y/o female with a PMH significant for A-Fib who presents to the ED for evaluation of fevers, chills and LE weakness and rash. # Sepsis 2/2 Cellulitis -fever Tmax 102, responded to tylenol - currently afebrile -pain, erythema and edema of both LE, today complains of increased pain of LLE. -B/l venous doppler was negative -Patient denies known PMH significant for CHF or DM2, will obtain records from [facility] -Vancomycin (12/07) and Clindamycin (12/06) -Procal: 0.44 -Lactic Acid: 0.7 -BNP: 155 - baseline unknown -D-Dimer: 0.29 -BCx and UCx show no growth at 48 hours -PT/OT consulted #NSTEMI Type 2 -cards consulted- will try to obtain med records from [facility] for cardiac cath she had done. Dr Justin held the lovenox. -trop 0.8->0.9->0.7. Moved from medical floor to tele -will restart home meds: eliquis, carvedilol and diltiazem, multaq - try to obtain records of recent ECHO with [facility] #Tachypnea -resolved -Likely due to fluid overload. Questionable hx of CHF -gave one time lasix 40mg, will reassess # SERENA vs. CKD -Cr: 1.41->1.37->1.0 - baseline unknown -FeNA 2.1%, suggestive of ATN, likely due to sepsis -Will renally dose all medications # Normocytic Anemia -Fe 21 -unsure of hx of anemia and if on any medications, will obtain records from [facility] # A-Fib - Patient states that she is on Eliquis but is unsure of dosage - INR: 1.4 - Restarted Eliquis PCP: CC Code: DNAR Diet: HH VTE PPx: Home Eliquis Dispo: Inpatient, tele, NSTEMI and Sepsis 2/2 cellulitis, stable, LOS>48hrs Addendum - Attending - Attending Attestation Date/Time: 12/09/19 8731 I personally evaluated the patient and discussed the management with Dr. Massey. I agree with the History, Examination, Assessment and Plan documented above with any addition or exceptions noted below. Denies CP this morning. Awaiting records from [facility] and [facility]. Will give additional dose of IV lasix to help with diuresis. Leg erythema improving. D/c clinda and add cefepime due to limited resolution of cellulitis. Reculture since fever overnight.
[2019-12-09] MEDS: Carvedilol 6.25 MG TAB PO SCH ×2 (08:57→21:25)
[2019-12-09] MEDS: predniSONE 5 MG TAB PO SCH ×2 (08:57→17:42)
[2019-12-09] MEDS: Losartan 25 MG TAB PO SCH ×2 (08:57→21:26)
[2019-12-09] MEDS: Apixaban 5 MG TAB PO SCH ×2 (08:58→21:25)
[2019-12-09] MEDS: Furosemide 40 MG TAB PO SCH ×2 (08:58→14:49)
[2019-12-09] MEDS: Spironolactone 25 MG TAB PO SCH (08:58)
[2019-12-09] MEDS: Dronedarone HCl 400 MG TAB PO SCH ×2 (08:58→17:42)
[2019-12-09] MEDS ORDERED: Furosemide 40 MG/4 ML VIAL SLOW IVP SCH (12:45)
--- NOTE | 2019-12-09 14:50 | PDOC.CPN ---
- Subjective Date: 12/09/19 Time: 14:53 Interval history: The pt seen and examined. No overnight events. No cardiac complaints. - Objective Allergies/Adverse Reactions: Allergies Allergy/AdvReac Type Severity Reaction Status Date / Time adhesive Allergy Verified 12/07/19 02:54 erythromycin base Allergy Verified 08/19/19 19:07 hydrocodone [From Lortab] Allergy Verified 08/19/19 19:07 metolazone [From Zaroxolyn] Allergy Verified 08/19/19 19:07 Penicillins Allergy Verified 08/19/19 19:07 Sulfa (Sulfonamide Allergy Verified 08/19/19 19:07 Antibiotics) tramadol [From Ultram] Allergy Verified 08/19/19 19:07 Visit Medications: Current Medications Acetaminophen (Tylenol) 650 mg PO Q4H PRN PRN Reason: Headache/Fever/Mild Pain (1-3) Last Admin: 12/08/19 21:31 Dose: 650 mg Albuterol/Ipratropium (Duoneb) 3 ml NEB [id number] [facility] Last Admin: 12/09/19 13:29 Dose: 3 ml Apixaban (Eliquis) 5 mg PO BID [facility] Last Admin: 12/09/19 08:58 Dose: 5 mg Calcium Carbonate (Tums) 1,000 mg PO Q4H PRN PRN Reason: Heartburn or Indigestion Carvedilol (Coreg) 6.25 mg PO BID [facility] Last Admin: 12/09/19 08:57 Dose: 6.25 mg Diltiazem HCl (Cardizem) 30 mg PO BID-[facility] Last Admin: 12/09/19 08:58 Dose: 30 mg Dronedarone (Multaq) 400 mg PO BID-PC [facility] Last Admin: 12/09/19 08:58 Dose: 400 mg Furosemide (Lasix) 40 mg PO 0900,1400 [facility] Last Admin: 12/09/19 14:49 Dose: 40 mg Furosemide (Lasix) 40 mg SLOW IVP NOW RAFA Stop: 12/09/19 15:00 Last Admin: 12/09/19 13:03 Dose: 40 mg Diltiazem HCl 125 mg/Miscellaneous Medication 1 each/ Sodium Chloride 125 mls @ 5 mls/hr IVPB INF RAFA; Protocol Vancomycin HCl 1.75 gm/ Sodium (Chloride) 500 mls @ 250 mls/hr IVPB 2200 [facility] Last Admin: 12/08/19 22:37 Dose: 500 mls Cefepime HCl 1 gm/ Sodium (Chloride) 100 mls @ 200 mls/hr IVPB Q12HR [facility] Losartan Potassium (Cozaar) 50 mg PO BID [facility] Last Admin: 12/09/19 08:57 Dose: 50 mg Miscellaneous Medication (Pharmacy To Dose) 1 each IVPB PRN PRN PRN Reason: Pharmacy to dose Ondansetron HCl (Zofran Odt) 4 mg PO Q6H PRN PRN Reason: Nausea/Vomiting Pramipexole Dihydrochloride (Mirapex) 0.5 mg PO HS [facility] Last Admin: 12/08/19 21:30 Dose: 0.5 mg Prednisone (Prednisone) 5 mg PO BID-[facility] Last Admin: 12/09/19 08:57 Dose: 5 mg Sodium Chloride (Flush - Normal Saline) 10 ml IVF Q12HR [facility] Last Admin: 12/09/19 08:58 Dose: 10 ml Sodium Chloride (Flush - Normal Saline) 10 ml IVF PRN PRN PRN Reason: Saline Flush Spironolactone (Aldactone) 25 mg PO MWF [facility] Last Admin: 12/09/19 08:58 Dose: 25 mg Vital Signs & Weight: Vital Signs Temp Pulse Resp BP Pulse Ox 12/09/19 13:29 76 16 12/09/19 11:40 98.9 F 74 20 122/50 L 100 12/09/19 08:53 99.1 F 73 20 123/57 L 100 12/09/19 07:10 77 16 96 12/09/19 03:17 97.6 F 77 18 103/53 L Weight 233 lb 14.4 oz - Physical Exam General: alert & oriented x3 HEENT: mucus membranes moist Neck: supple neck Cardiac: regular rate and rhythm, S1/S2 Lungs: decreased breath sounds Abdomen: no masses - Labs Result Diagrams: 12/09/19 04:47 12/09/19 04:47 Troponin/CKMB CK-MB (CK-2) 2.2 ng/mL (0-6.6) 12/07/19 14:29 Troponin I 0.745 ng/mL (< 0.028) H* 12/08/19 04:31 - Telemetry Sinus rhythms and dysrhythmias: sinus rhythm - Assessment/Plan Assessment/Plan: 1. Chest discomfort - asymptomatic today; waiting for cath report from Dr Jean 's office 2. elevated trop - possible 2/2 Type 2 NSTEMI; waiting for cath report 3. persistent Afib - converted back to SR around 1300 on 12/08/2019; well controlled HR with coreg, Multaq, diltiazem; On Eliquis 5mg BID. 4. Sepsis 2/2 Cellulitis - on ABX 5. COPD/Asthma 6. SERENA on CKD - improving 7. hx of peptic ulcer disease 8. hx of TIA 9. Hx of Anemia 10. Obese MAR reviewed * Dr Jean's pt * Code: DNAR Pt. seen and eval.by me. I agree with the A/P by the [employer] SPECIALIST.She is feeling better today and has good diuresis.. She remains in sinus rhythm. The erythema in the lower leys is a little better,charlee
[2019-12-09] MEDS: Cefepime 1 GM in Sodium Chloride 0.9% 100 ML IVPB SCH (21:26)
[2019-12-09] MEDS: Pramipexole Di-HCl 0.25 MG TAB PO SCH (21:26)
[2019-12-09] MEDS: Acetaminophen 325 MG TAB PO PRN (21:27)
[2019-12-09] MEDS: Vancomycin HCl 1.75 GM in Sodium Chloride 0.9% 500 ML IVPB SCH (22:32)
[2019-12-10 04:54] LABS: #Eosinphils 0.3 thou/uL (0.0-0.7); #Lymphocytes 1.2 thou/uL (1.20-3.40); #Monocytes 0.6 thou/uL (0.11-0.59); #Neutrophils 4.3 thou/uL (1.40-6.50); %Basophils 0.2 % (0.0-1.0); %Eosinophils 4.8 % (0.0-10.0); %Lymphocytes 18.4 % (21.0-51.0); %Monocytes 9.2 % (0.0-10.0); %Neutrophils 67.4 % (42.0-75.0); Hemoglobin 8.7 g/dL (12.0-16.0); Mean Corpuscular HGB CONC 32.3 g/dL (32.0-36.0); Mean Corpuscular Hemoglobin 27.6 pg (27.0-31.0); Mean Corpuscular Volume 85.6 fL (78.0-98.0); Platelet Count 144 thou/uL (130-400); RBC Distribution Width 14.7 % (11.5-14.5); Red Blood Cell (RBC) Count 3.16 mill/uL (4.20-5.40); White Blood Cell (WBC) Count 6.4 thou/uL (4.8-10.8)
[2019-12-10 05:12] LABS: Anion Gap 11 mmol/L (10-20); BUN (Urea Nitrogen) 13 mg/dL (9.8-20.1); Calc. Creatinine Clearance 79 mL/min (70-130); Calcium 7.9 mg/dL (7.8-10.44); Carbon Dioxide 27 mmol/L (23-31); Chloride 105 mmol/L (98-107); Estimated GFR-MDRD 55; Glucose 100 mg/dL (83-110); Potassium 3.4 mmol/L (3.5-5.1); Sodium 140 mmol/L (136-145)
--- NOTE | 2019-12-10 06:06 | PDOC.FM ---
- Subjective Subjective: Patient continues to complain of leg pain, with left side greater than right. She is also complaining of indigestion last night, explaining she has a hiatal hernia and typically takes dexlansoprazole. Ms. Garcia expresses she is tired of being in the bed and feels "claustrophobic." - Objective Vital Signs & Weight: Vital Signs (12 hours) Temp Pulse Resp BP BP Pulse Ox 12/10/19 03:31 98.7 F 73 17 126/61 100 12/09/19 23:28 84 16 99 12/09/19 19:45 99.7 F H 80 18 127/60 99 12/09/19 18:20 79 16 100 Weight Weight 106.095 kg I&O: 12/08/19 12/09/19 12/10/19 06:59 06:59 06:59 Intake Total 1480 560 640 Output Total 1950 450 Balance -470 560 190 Result Diagrams: 12/10/19 08:38 12/10/19 08:38 Additional Labs: TSH - 0.6968 Phys Exam - Physical Examination Respiratory: wheezing present expiratory wheezes bilaterally Cardiovascular: RRR Gastrointestinal: soft, non-tender erythema, warmth, edema on bilateral LE, left worse than right Neurological: moves all 4 limbs Psychiatric: A&O x 3 Dx/Plan - Plan Plan: Patient is a 79 y/o female with a PMH significant for A-Fib who presents to the ED for evaluation of fevers, chills and LE weakness and rash. # Sepsis 2/2 Cellulitis -fever Tmax 102 (12/07), responded to tylenol - afebrile since 12/08 -repeat BCx pending -Vancomycin (12/07), Cefepime (12/08) -[x] Clindamycin (12/06-12/07) -pain, erythema and edema of both LE, today complains of increased pain of LLE. -B/l venous doppler was negative -Patient denies known PMH significant for CHF or DM2, will obtain records from [facility] -Procal: 0.44 -Lactic Acid: 0.7 -BNP: 155 - baseline unknown -D-Dimer: 0.29 -First BCx and UCx showed no growth at 48 hours -PT/OT consulted #NSTEMI Type 2 -cards consulted- will try to obtain med records from [facility] for cardiac cath she had done. Dr Justin held the lovenox. -trop 0.8->0.9->0.7. Moved from medical floor to tele -will restart home meds: eliquis, carvedilol and diltiazem, multaq -try to obtain records of recent ECHO with [employer]IST #Hypokalemia - K 3.4 - replaced with 40meq #Tachypnea -resolved -Likely due to fluid overload. Questionable hx of CHF -gave one time lasix 40mg IV -receiving lasic 40mg BID PO # SERENA -resolved -Cr: 1.41->1.37->1.0->.97 - baseline unknown -FeNA 2.1%, suggestive of ATN, likely due to sepsis -Will renally dose all medications # Normocytic Anemia -Fe 21 -unsure of hx of anemia and if on any medications, will obtain records from [employer] # A-Fib - Patient states that she is on Eliquis but is unsure of dosage - INR: 1.4 - Restarted Eliquis PCP: CC Code: DNAR Diet: HH VTE PPx: Home Eliquis PPI PPx: Protonix, Carafate prn Dispo: Inpatient, tele, NSTEMI and Sepsis 2/2 cellulitis, stable, LOS>48hrs Addendum - Attending - Attending Attestation Date/Time: 12/10/19 1666 I personally evaluated the patient and discussed the management with Dr. Massey. I agree with the History, Examination, Assessment and Plan documented above with any addition or exceptions noted below. Cellulitis improving. Will attempt to wean O2 today. Awaiting cards recs.
[2019-12-10] MEDS ORDERED: Sucralfate 1 GM/10 ML UDCUP PO PRN (08:10)
[2019-12-10] MEDS ORDERED: Potassium Chloride 20 MEQ TAB PO SCH (08:15)
[2019-12-10] MEDS: Furosemide 40 MG TAB PO SCH ×2 (08:42→15:10)
[2019-12-10] MEDS: Cefepime 1 GM in Sodium Chloride 0.9% 100 ML IVPB SCH ×2 (08:42→20:40)
[2019-12-10] MEDS: Dronedarone HCl 400 MG TAB PO SCH ×2 (08:42→17:04)
[2019-12-10] MEDS: Carvedilol 6.25 MG TAB PO SCH ×2 (08:42→20:40)
[2019-12-10] MEDS: predniSONE 5 MG TAB PO SCH ×2 (08:42→17:04)
[2019-12-10] MEDS: Losartan 25 MG TAB PO SCH ×2 (08:43→20:40)
[2019-12-10] MEDS: Apixaban 5 MG TAB PO SCH ×2 (08:43→20:40)
[2019-12-10] MEDS: Acetaminophen 325 MG TAB PO PRN (08:51)
[2019-12-10 08:58] LABS: Hemoglobin 9.4 g/dL (12.0-16.0); Platelet Count 173 thou/uL (130-400)
[2019-12-10 09:54] LABS: Troponin I 0.146 ng/mL (< 0.028)
--- NOTE | 2019-12-10 10:50 | PDOC.CPN ---
- Subjective Date: 12/10/19 Time: 10:51 Interval history: The pt seen and examined. No overnight events. No cardiac complaints. She sits at bedside without any cardiac complaints. She feels more energy today - Objective Allergies/Adverse Reactions: Allergies Allergy/AdvReac Type Severity Reaction Status Date / Time adhesive Allergy Verified 12/07/19 02:54 erythromycin base Allergy Verified 08/19/19 19:07 hydrocodone [From Lortab] Allergy Verified 08/19/19 19:07 metolazone [From Zaroxolyn] Allergy Verified 08/19/19 19:07 Penicillins Allergy Verified 08/19/19 19:07 Sulfa (Sulfonamide Allergy Verified 08/19/19 19:07 Antibiotics) tramadol [From Ultram] Allergy Verified 08/19/19 19:07 Visit Medications: Current Medications Acetaminophen (Tylenol) 650 mg PO Q4H PRN PRN Reason: Headache/Fever/Mild Pain (1-3) Last Admin: 12/10/19 08:51 Dose: 650 mg Albuterol/Ipratropium (Duoneb) 3 ml NEB [id number] [facility] Last Admin: 12/10/19 07:02 Dose: 3 ml Apixaban (Eliquis) 5 mg PO BID [facility] Last Admin: 12/10/19 08:43 Dose: 5 mg Calcium Carbonate (Tums) 1,000 mg PO Q4H PRN PRN Reason: Heartburn or Indigestion Carvedilol (Coreg) 6.25 mg PO BID [facility] Last Admin: 12/10/19 08:42 Dose: 6.25 mg Diltiazem HCl (Cardizem) 30 mg PO BID[facility] Last Admin: 12/10/19 08:42 Dose: 30 mg Dronedarone (Multaq) 400 mg PO BID-PC [facility] Last Admin: 12/10/19 08:42 Dose: 400 mg Furosemide (Lasix) 40 mg PO 0900,1400 [facility] Last Admin: 12/10/19 08:42 Dose: 40 mg Diltiazem HCl 125 mg/Miscellaneous Medication 1 each/ Sodium Chloride 125 mls @ 5 mls/hr IVPB INF [facility]; Protocol Vancomycin HCl 1.75 gm/ Sodium (Chloride) 500 mls @ 250 mls/hr IVPB 2200 [facility] Last Admin: 12/09/19 22:32 Dose: 500 mls Cefepime HCl 1 gm/ Sodium (Chloride) 100 mls @ 200 mls/hr IVPB Q12HR [facility] Last Admin: 12/10/19 08:42 Dose: 100 mls Losartan Potassium (Cozaar) 50 mg PO BID [facility] Last Admin: 12/10/19 08:43 Dose: 50 mg Miscellaneous Medication (Pharmacy To Dose) 1 each IVPB PRN PRN PRN Reason: Pharmacy to dose Ondansetron HCl (Zofran Odt) 4 mg PO Q6H PRN PRN Reason: Nausea/Vomiting Last Admin: 12/09/19 23:39 Dose: 4 mg Pantoprazole Sodium (Protonix) 40 mg PO DAILY [facility] Last Admin: 12/10/19 08:42 Dose: 40 mg Pramipexole Dihydrochloride (Mirapex) 0.5 mg PO HS [facility] Last Admin: 12/09/19 21:26 Dose: 0.5 mg Prednisone (Prednisone) 5 mg PO BID[facility] Last Admin: 12/10/19 08:42 Dose: 5 mg Sodium Chloride (Flush - Normal Saline) 10 ml IVF Q12HR [facility] Last Admin: 12/10/19 08:41 Dose: 10 ml Sodium Chloride (Flush - Normal Saline) 10 ml IVF PRN PRN PRN Reason: Saline Flush Spironolactone (Aldactone) 25 mg PO MWF [facility] Last Admin: 12/09/19 08:58 Dose: 25 mg Sucralfate (Carafate) 1 gm PO PRN PRN PRN Reason: GI Upset Last Admin: 12/10/19 08:42 Dose: 1 gm Vital Signs & Weight: Vital Signs Temp Pulse Resp BP BP Pulse Ox 12/10/19 07:15 98.8 F 70 20 138/61 100 12/10/19 07:05 99 12/10/19 07:02 74 16 99 12/10/19 03:31 98.7 F 73 17 126/61 100 12/09/19 23:28 84 16 99 Weight 233 lb 8 oz - Physical Exam General: alert & oriented x3 HEENT: mucus membranes moist Neck: supple neck Cardiac: regular rate and rhythm, S1/S2 Lungs: decreased breath sounds Neuro: cranial nerve 2-12 intact Extremities: other: (1-2+ pitting edema with erythema in BLE; can see more rinkles to BLE) - Labs Result Diagrams: 12/10/19 08:38 12/10/19 08:38 Troponin/CKMB CK-MB (CK-2) 2.2 ng/mL (0-6.6) 12/07/19 14:29 Troponin I 0.146 ng/mL (< 0.028) H 12/10/19 08:38 - Telemetry Sinus rhythms and dysrhythmias: sinus rhythm - Assessment/Plan Assessment/Plan: 1. Chest discomfort - asymptomatic today; waiting for cath report from Dr Jean 's office 2. elevated trop - possible 2/2 Type 2 NSTEMI; trend down today; waiting for cath report 3. persistent Afib - converted back to SR around 1300 on 12/08/2019; well controlled HR with coreg, Multaq, diltiazem; On Eliquis 5mg BID. 4. Sepsis 2/2 Cellulitis - on ABX 5. COPD/Asthma - on 2LNC; the pt stated she can breath better today 6. SERENA on CKD - improving 7. hx of peptic ulcer disease 8. hx of TIA 9. Hx of Anemia 10. Obese MAR reviewed * Dr Jean's pt * Code: DNAR Pt. sen and eval. by me. I agree with the A/P by the MATERIAL PLANNER. [facility] : EF: 60-65%. Essentially normal coronaries except small vessel disease in the distal LAD. She also has mild .In she also had mild elevation of the troponin I. Overall cardiac status is stable. charlee
[2019-12-10] MEDS ORDERED: Famotidine 20 MG TAB PO PRN (12:37)
[2019-12-10] MEDS: Pramipexole Di-HCl 0.25 MG TAB PO SCH (20:53)
[2019-12-10] MEDS: Vancomycin HCl 1.75 GM in Sodium Chloride 0.9% 500 ML IVPB SCH (21:40)
[2019-12-10 22:16] LABS: Vancomycin, Trough 16.2 ug/mL
[2019-12-11] MEDS: Acetaminophen 325 MG TAB PO PRN (00:08)
[2019-12-11 04:14] LABS: #Eosinphils 0.3 thou/uL (0.0-0.7); #Lymphocytes 1.1 thou/uL (1.20-3.40); #Monocytes 0.6 thou/uL (0.11-0.59); #Neutrophils 5.3 thou/uL (1.40-6.50); %Basophils 0.3 % (0.0-1.0); %Eosinophils 4.3 % (0.0-10.0); %Lymphocytes 14.5 % (21.0-51.0); %Monocytes 8.7 % (0.0-10.0); %Neutrophils 72.2 % (42.0-75.0); Hemoglobin 8.7 g/dL (12.0-16.0); Mean Corpuscular HGB CONC 31.6 g/dL (32.0-36.0); Mean Corpuscular Hemoglobin 27.1 pg (27.0-31.0); Mean Corpuscular Volume 85.6 fL (78.0-98.0); Mean Platelet Volume 7.9 fL (7.4-10.4); Platelet Count 174 thou/uL (130-400); RBC Distribution Width 14.6 % (11.5-14.5); White Blood Cell (WBC) Count 7.3 thou/uL (4.8-10.8)
[2019-12-11 04:35] LABS: Anion Gap 8 mmol/L (10-20); BUN (Urea Nitrogen) 14 mg/dL (9.8-20.1); Calc. Creatinine Clearance 79 mL/min (70-130); Calcium 8.2 mg/dL (7.8-10.44); Carbon Dioxide 30 mmol/L (23-31); Chloride 106 mmol/L (98-107); Estimated GFR-MDRD 56; Glucose 112 mg/dL (83-110); Potassium 3.4 mmol/L (3.5-5.1); Sodium 141 mmol/L (136-145)
--- NOTE | 2019-12-11 06:25 | PDOC.FM ---
- Subjective Subjective: Patient is complaining of back pain this morning. Says her grandson will bring her home meds for her GERD. Told patient she could take those instead of the protonix here. - Objective Vital Signs & Weight: Vital Signs (12 hours) Temp Pulse Resp BP BP Pulse Ox 12/11/19 04:00 98.2 F 81 18 138/61 99 12/11/19 00:34 72 16 100 12/10/19 20:40 137/63 12/10/19 20:00 98.7 F 74 18 141/63 H 99 12/10/19 19:34 16 Weight Weight 104.871 kg I&O: 12/09/19 12/10/19 12/11/19 06:59 06:59 06:59 Intake Total 560 1730 1300 Output Total 1500 1300 Balance 560 230 0 Result Diagrams: 12/11/19 03:51 12/11/19 03:51 Phys Exam - Physical Examination Constitutional: NAD HEENT: PERRLA, moist MMs Neck: full ROM L sided expiratory wheezing Cardiovascular: no significant murmur irregular rhythm Gastrointestinal: soft, non-tender, no distention Musculoskeletal: pulses present erythma, warm bilateral LE, left worse than right side, improving Neurological: non-focal, normal sensation, moves all 4 limbs Psychiatric: normal affect, A&O x 3 Dx/Plan - Plan Plan: Patient is a 79 y/o female with a PMH significant for A-Fib who presents to the ED for evaluation of fevers, chills and LE weakness and rash. # Sepsis 2/2 Cellulitis -fever Tmax 102 (12/07), afebrile since 01012/08 -repeat BCx: preliminary no growth -Vancomycin (12/07), Cefepime (12/08) -[x] Clindamycin (12/06-12/07) -pain, erythema and edema of both LE, today complains of increased pain of LLE. -B/l venous doppler was negative -Procal: 0.44 -Lactic Acid: 0.7 -BNP: 155 - baseline unknown -D-Dimer: 0.29 -First BCx and UCx showed no growth at 48 hours -PT/OT consulted #NSTEMI Type 2 -cards consulted- Dr Justin held the [employer]. -Cath from [facility]08/06/2019: EF: 60-65%. Essentially normal coronaries except small vessel disease in the distal LAD. She also has mild .In she also had mild elevation of the troponin I. -trop 0.8->0.9->0.7. Moved from medical floor to tele -will restart home meds: eliquis, carvedilol and diltiazem, multaq -try to obtain records of recent ECHO with [facility] NURSE #Hypokalemia - K 3.4 - will replace #Tachypnea -resolved -Likely due to fluid overload. Questionable hx of CHF -gave one time lasix 40mg IV -receiving lasix 40mg BID PO # SERENA -resolved -Cr: 1.41->1.37->1.0->.97 - baseline unknown -FeNA 2.1%, suggestive of ATN, likely due to sepsis -Will renally dose all medications # Normocytic Anemia -Fe 21 -unsure of hx of anemia and if on any medications, will obtain records from [facility] NURSE # A-Fib -converted back to SR around 1300 on 12/08/2019 -well controlled HR with coreg, Multaq, Diltiazem -On Eliquis 5mg BID -INR: 1.4 PCP: CC Code: DNAR Diet: HH VTE PPx: Home Eliquis PPI PPx: Protonix, Carafate prn Dispo: Inpatient, tele, NSTEMI and Sepsis 2/2 cellulitis, stable, LOS>48hrs Addendum - Attending - Attending Attestation Date/Time: 12/11/19 4523 I personally evaluated the patient and discussed the management with Dr. Massey. I agree with the History, Examination, Assessment and Plan documented above with any addition or exceptions noted below. Wean O2 today. PT/OT to eval for placement vs HH w/ services. will switch to PO doxy at time of d/c.
[2019-12-11] MEDS: Apixaban 5 MG TAB PO SCH ×2 (08:28→21:04)
[2019-12-11] MEDS: Cefepime 1 GM in Sodium Chloride 0.9% 100 ML IVPB SCH (08:28)
[2019-12-11] MEDS: Carvedilol 6.25 MG TAB PO SCH ×2 (08:28→21:05)
[2019-12-11] MEDS: Spironolactone 25 MG TAB PO SCH (08:28)
[2019-12-11] MEDS: Furosemide 40 MG TAB PO SCH ×2 (08:28→13:22)
[2019-12-11] MEDS: Dronedarone HCl 400 MG TAB PO SCH ×2 (08:28→17:37)
[2019-12-11] MEDS: Losartan 25 MG TAB PO SCH ×2 (08:28→21:05)
[2019-12-11] MEDS: predniSONE 5 MG TAB PO SCH ×2 (08:28→17:37)
[2019-12-11] MEDS ORDERED: DEXILANT 60 MG PO SCH (10:15)
[2019-12-11] MEDS ORDERED: NUCYNTA 200 MG PO SCH (10:15)
[2019-12-11] MEDS ORDERED: HYDROmorphone 2 MG TAB PO PRN (10:29)
--- NOTE | 2019-12-11 12:59 | PDOC.CPN ---
- Subjective Date: 12/11/19 Time: 13:02 Interval history: The pt seen and examined. No overnight events. No cardiac complaints. She feels uncomfortable to be d/c home since she cannot walk well now - Objective Allergies/Adverse Reactions: Allergies Allergy/AdvReac Type Severity Reaction Status Date / Time adhesive Allergy Verified 12/07/19 02:54 erythromycin base Allergy Verified 08/19/19 19:07 hydrocodone [From Lortab] Allergy Verified 08/19/19 19:07 metolazone [From Zaroxolyn] Allergy Verified 08/19/19 19:07 Penicillins Allergy Verified 08/19/19 19:07 Sulfa (Sulfonamide Allergy Verified 08/19/19 19:07 Antibiotics) tramadol [From Ultram] Allergy Verified 08/19/19 19:07 Visit Medications: Current Medications Acetaminophen (Tylenol) 650 mg PO Q4H PRN PRN Reason: Headache/Fever/Mild Pain (1-3) Last Admin: 12/11/19 00:08 Dose: 650 mg Albuterol/Ipratropium (Duoneb) 3 ml NEB [id number] [facility] Last Admin: 12/11/19 07:02 Dose: 3 ml Apixaban (Eliquis) 5 mg PO BID [facility] Last Admin: 12/11/19 08:28 Dose: 5 mg Calcium Carbonate (Tums) 1,000 mg PO Q4H PRN PRN Reason: Heartburn or Indigestion Carvedilol (Coreg) 6.25 mg PO BID [facility] Last Admin: 12/11/19 08:28 Dose: 6.25 mg Diltiazem HCl (Cardizem) 30 mg PO BID-PC [facility] Last Admin: 12/11/19 08:28 Dose: 30 mg Dronedarone (Multaq) 400 mg PO BID-PC [facility] Last Admin: 12/11/19 08:28 Dose: 400 mg Furosemide (Lasix) 40 mg PO 0900,1400 [facility] Last Admin: 12/11/19 08:28 Dose: 40 mg Hydromorphone HCl (Dilaudid) 2 mg PO TID PRN PRN Reason: Moderate to Severe Pain (6-10) Last Admin: 12/11/19 10:55 Dose: 2 mg Diltiazem HCl 125 mg/Miscellaneous Medication 1 each/ Sodium Chloride 125 mls @ 5 mls/hr IVPB INF [facility]; Protocol Vancomycin HCl 1.75 gm/ Sodium (Chloride) 500 mls @ 250 mls/hr IVPB 2200 [facility] Last Admin: 12/10/19 21:40 Dose: 500 mls Cefepime HCl 1 gm/ Sodium (Chloride) 100 mls @ 200 mls/hr IVPB Q12HR [facility] Last Admin: 12/11/19 08:28 Dose: 100 mls Losartan Potassium (Cozaar) 50 mg PO BID [facility] Last Admin: 12/11/19 08:28 Dose: 50 mg Miscellaneous Medication (Pharmacy To Dose) 1 each IVPB PRN PRN PRN Reason: Pharmacy to dose Ondansetron HCl (Zofran Odt) 4 mg PO Q6H PRN PRN Reason: Nausea/Vomiting Last Admin: 12/09/19 23:39 Dose: [address] Cap 0 each PO DAILY [facility] Nucynta Er 200mg Tab 0 each PO BID [facility] Potassium Chloride (K-Dur) 40 meq [facility] Pramipexole Dihydrochloride (Mirapex) 0.5 mg PO HS [facility] Last Admin: 12/10/19 20:53 Dose: 0.5 mg Prednisone (Prednisone) 5 mg PO BID-WM [facility] Last Admin: 12/11/19 08:28 Dose: 5 mg Sodium Chloride (Flush - Normal Saline) 10 ml IVF Q12HR [facility] Last Admin: 12/11/19 08:29 Dose: 10 ml Sodium Chloride (Flush - Normal Saline) 10 ml IVF PRN PRN PRN Reason: Saline Flush Spironolactone (Aldactone) 25 mg PO MWF [facility] Last Admin: 12/11/19 08:28 Dose: 25 mg Sucralfate (Carafate) 1 gm PO PRN PRN PRN Reason: GI Upset Last Admin: 12/10/19 08:42 Dose: 1 gm Vital Signs & Weight: Vital Signs Temp Pulse Resp BP BP Pulse Ox 12/11/19 11:45 99.2 F 80 20 130/70 97 12/11/19 08:25 99.2 F 83 20 158/89 H 100 12/11/19 07:03 99 12/11/19 07:02 99 16 99 12/11/19 04:00 98.2 F 81 18 138/61 99 Weight 231 lb 3.2 oz - Physical Exam General: alert & oriented x3 Neck: supple neck Cardiac: regular rate and rhythm, S1/S2 Lungs: decreased breath sounds Neuro: cranial nerve 2-12 intact Extremities: other: (1-2 + pitting BLE edema with erythema) - Labs Result Diagrams: 12/11/19 03:51 12/11/19 03:51 Troponin/CKMB CK-MB (CK-2) 2.2 ng/mL (0-6.6) 12/07/19 14:29 Troponin I 0.146 ng/mL (< 0.028) H 12/10/19 08:38 - Telemetry Sinus rhythms and dysrhythmias: sinus rhythm - Assessment/Plan Assessment/Plan: 1. Chest discomfort - asymptomatic today; S/p LHC by Dr Jean on 08/06/2019 with normal coronary arteries except small vessel disease in the distal LAD; EF 60-65% and mild . 2. elevated trop - possible 2/2 Type 2 NSTEMI; trend down today; LHC in 07/2019 with normal coronary arteries 3. persistent Afib - converted back to SR around 1300 on 12/08/2019; well controlled HR with coreg, Multaq, diltiazem; On Eliquis 5mg BID. 4. Sepsis 2/2 Cellulitis - on ABX 5. COPD/Asthma - on 2LNC; the pt stated she can breath better today 6. SERENA on CKD - improving 7. hx of peptic ulcer disease 8. hx of TIA 9. Hx of Anemia 10. Obese MAR reviewed * Dr Jean's pt; S/p LHC by Dr Jean on 08/06/2019 with normal coronary arteries except small vessel disease in the distal LAD; EF 60-65% and mild . * Code: DNAR Pt. seen and eval. by me. I agree with the A/P by the INSURANCE COMMISSIONER. Chest: wheezing, CV: RRR. Legs look better. Decreased erythema.[email or web address]
[2019-12-11] MEDS: Potassium Chloride 20 MEQ TAB PO SCH (17:37)
[2019-12-11] MEDS: Cefepime 2 GM in Sodium Chloride 0.9% 100 ML IVPB SCH (21:05)
[2019-12-11] MEDS: Pramipexole Di-HCl 0.25 MG TAB PO SCH (21:06)
[2019-12-11] MEDS: Vancomycin HCl 1.75 GM in Sodium Chloride 0.9% 500 ML IVPB SCH (21:57)
[2019-12-11] MEDS: NUCYNTA 200 MG PO SCH (22:25)
[2019-12-12 04:12] LABS: #Eosinphils 0.3 thou/uL (0.0-0.7); #Lymphocytes 1.5 thou/uL (1.20-3.40); #Monocytes 0.6 thou/uL (0.11-0.59); #Neutrophils 5.3 thou/uL (1.40-6.50); %Basophils 0.3 % (0.0-1.0); %Eosinophils 4.1 % (0.0-10.0); %Lymphocytes 19.1 % (21.0-51.0); %Neutrophils 68.4 % (42.0-75.0); Hemoglobin 8.8 g/dL (12.0-16.0); Mean Corpuscular HGB CONC 31.1 g/dL (32.0-36.0); Mean Corpuscular Hemoglobin 26.7 pg (27.0-31.0); Mean Corpuscular Volume 85.8 fL (78.0-98.0); Mean Platelet Volume 7.8 fL (7.4-10.4); Platelet Count 209 thou/uL (130-400); RBC Distribution Width 14.6 % (11.5-14.5); White Blood Cell (WBC) Count 7.7 thou/uL (4.8-10.8)
[2019-12-12 04:27] LABS: Anion Gap 11 mmol/L (10-20); BUN (Urea Nitrogen) 17 mg/dL (9.8-20.1); Calc. Creatinine Clearance 75 mL/min (70-130); Calcium 8.4 mg/dL (7.8-10.44); Carbon Dioxide 28 mmol/L (23-31); Chloride 105 mmol/L (98-107); Estimated GFR-MDRD 53; Glucose 93 mg/dL (83-110); Potassium 3.4 mmol/L (3.5-5.1); Sodium 141 mmol/L (136-145)
[2019-12-12] MEDS: Acetaminophen 325 MG TAB PO PRN (05:22)
--- NOTE | 2019-12-12 06:01 | PDOC.FM ---
- Subjective Subjective: Patient complains that she has been unable to urinate since last night although she feels the urge and pressure. - Objective Vital Signs & Weight: Vital Signs (12 hours) Temp Pulse Resp BP BP Pulse Ox 12/12/19 04:00 99 F 82 18 170/74 H 98 12/12/19 00:02 71 16 96 12/11/19 21:05 137/63 12/11/19 20:00 99 12/11/19 19:40 98.9 F 74 18 129/60 98 12/11/19 19:18 20 Weight Weight 104.871 kg I&O: 12/10/19 12/11/19 12/12/19 06:59 06:59 06:59 Intake Total 1730 1300 900 Output Total 1500 1300 950 Balance 230 0 -50 Result Diagrams: 12/12/19 03:58 12/12/19 03:58 Additional Labs: repeat BCx: no growth @ 48 hours EKG Reviewed by me: Yes (tele: Afib--> sinus @ 1900 on 12/10) Phys Exam - Physical Examination Constitutional: NAD receiving nebulizer treatment HEENT: PERRLA, moist MMs, sclera anicteric Neck: full ROM expiratory wheezing b/l L>R Cardiovascular: RRR, no significant murmur, no rub Gastrointestinal: soft, positive bowel sounds mild suprapubic tenderness warmth, erythema of bilaterally lower extremities. L>R. Warmth has significantly improved Neurological: moves all 4 limbs Psychiatric: normal affect, A&O x 3 Dx/Plan - Plan Plan: Patient is a 79 y/o female with a PMH significant for A-Fib who presents to the ED for evaluation of fevers, chills and LE weakness and rash. # Sepsis 2/2 Cellulitis -fever Tmax 102 (12/07), afebrile since 0100 12/08 -repeat BCx: no growth at 48 hours -Vancomycin (12/07), Cefepime (12/08) -[x] Clindamycin (12/06-12/07) -pain, erythema and edema of both LE, today complains of increased pain of LLE. -B/l venous doppler was negative -Procal: 0.44 -Lactic Acid: 0.7 -BNP: 155 - baseline unknown -D-Dimer: 0.29 -First BCx and UCx showed no growth at 5 days -PT/OT consulted -CM consult: Patient interested in short term inpatient rehab upon discharge. Referral sent and approval pending. #NSTEMI Type 2 -cards consulted- Dr Justin held the lovenox. -Cath from [facility]: EF: 60-65%. Essentially normal coronaries except small vessel disease in the distal LAD. She also has mild .In she also had mild elevation of the troponin I. -trop 0.8->0.9->0.7. Moved from medical floor to tele -will restart home meds: eliquis, carvedilol and diltiazem, multaq -try to obtain records of recent ECHO with [facility] TECHNICIAN #Hypokalemia - K 3.4 - on 40mg lasix BID - will replace #Possible urinary retention - Patient reports an urge but inability to void since last night. Will reassess if patient has voided in a few hours. - Bladder scan if unable to void. #Tachypnea -resolved -Likely due to fluid overload. Questionable hx of CHF -gave one time lasix 40mg IV -receiving lasix 40mg BID PO # SERENA -resolved -Cr: 1.41->1.37->1.0->.97 - baseline unknown -FeNA 2.1%, suggestive of ATN, likely due to sepsis -Will renally dose all medications # Normocytic Anemia -Fe 21 -unsure of hx of anemia and if on any medications, was unable to obtain records from [employer] TECHNICIAN # A-Fib -well controlled HR with coreg, Multaq, Diltiazem -On Eliquis 5mg BID -INR: 1.4 PCP: CC Code: DNAR Diet: HH VTE PPx: Home Eliquis PPI PPx: Protonix, Carafate prn Dispo: Inpatient, tele, NSTEMI and Sepsis 2/2 cellulitis, stable, LOS>48hrs Addendum - Attending - Attending Attestation Date/Time: 12/12/19 1341 I personally evaluated the patient and discussed the management with Dr. Massey. I agree with the History, Examination, Assessment and Plan documented above with any addition or exceptions noted below. D/c SNF/rehab once placed.
--- NOTE | 2019-12-12 08:52 | PDOC.CPN ---
- Subjective Date: 12/12/19 Time: 08:55 Interval history: The pt seen and examined. No overnight events. No cardiac complaints. She cont having urge of voiding - Objective Allergies/Adverse Reactions: Allergies Allergy/AdvReac Type Severity Reaction Status Date / Time adhesive Allergy Verified 12/07/19 02:54 erythromycin base Allergy Verified 08/19/19 19:07 hydrocodone [From Lortab] Allergy Verified 08/19/19 19:07 metolazone [From Zaroxolyn] Allergy Verified 08/19/19 19:07 Penicillins Allergy Verified 08/19/19 19:07 Sulfa (Sulfonamide Allergy Verified 08/19/19 19:07 Antibiotics) tramadol [From Ultram] Allergy Verified 08/19/19 19:07 Visit Medications: Current Medications Acetaminophen (Tylenol) 650 mg PO Q4H PRN PRN Reason: Headache/Fever/Mild Pain (1-3) Last Admin: 12/12/19 05:22 Dose: 650 mg Albuterol/Ipratropium (Duoneb) 3 ml NEB [id number] RAFA Last Admin: 12/12/19 07:59 Dose: 3 ml Apixaban (Eliquis) 5 mg PO BID [facility] Last Admin: 12/11/19 21:04 Dose: 5 mg Calcium Carbonate (Tums) 1,000 mg PO Q4H PRN PRN Reason: Heartburn or Indigestion Carvedilol (Coreg) 6.25 mg PO BID [facility] Last Admin: 12/11/19 21:05 Dose: 6.25 mg Diltiazem HCl (Cardizem) 30 mg PO BID-PC [facility] Last Admin: 12/11/19 17:37 Dose: 30 mg Dronedarone (Multaq) 400 mg PO BID-PC [facility] Last Admin: 12/11/19 17:37 Dose: 400 mg Furosemide (Lasix) 40 mg PO 0900,1400 [facility] Last Admin: 12/11/19 13:22 Dose: 40 mg Hydromorphone HCl (Dilaudid) 2 mg PO TID PRN PRN Reason: Moderate to Severe Pain (6-10) Last Admin: 12/11/19 10:55 Dose: 2 mg Diltiazem HCl 125 mg/Miscellaneous Medication 1 each/ Sodium Chloride 125 mls @ 5 mls/hr IVPB INF RAFA; Protocol Vancomycin HCl 1.75 gm/ Sodium (Chloride) 500 mls @ 250 mls/hr IVPB 2200 [facility] Last Admin: 12/11/19 21:57 Dose: 500 mls Cefepime HCl 2 gm/ Sodium (Chloride) 100 mls @ 200 mls/hr IVPB Q12HR [facility] Last Admin: 12/11/19 21:05 Dose: 100 mls Losartan Potassium (Cozaar) 50 mg PO BID [facility] Last Admin: 12/11/19 21:05 Dose: 50 mg Miscellaneous Medication (Pharmacy To Dose) 1 each IVPB PRN PRN PRN Reason: Pharmacy to dose Ondansetron HCl (Zofran Odt) 4 mg PO Q6H PRN PRN Reason: Nausea/Vomiting Last Admin: 12/09/19 23:39 Dose: [address] Cap 0 each PO DAILY [facility] Nucynta Er 200mg Tab 0 each PO BID [facility] Last Admin: 12/11/19 22:25 Dose: 1 each Potassium Chloride (K-Dur) 40 meq PO BID-[facility] Last Admin: 12/11/19 17:37 Dose: 40 meq Pramipexole Dihydrochloride (Mirapex) 0.5 mg PO HS [facility] Last Admin: 12/11/19 21:06 Dose: 0.5 mg Prednisone (Prednisone) 5 mg PO BID-[facility] Last Admin: 12/11/19 17:37 Dose: 5 mg Sodium Chloride (Flush - Normal Saline) 10 ml IVF Q12HR [facility] Last Admin: 12/11/19 21:07 Dose: 10 ml Sodium Chloride (Flush - Normal Saline) 10 ml IVF PRN PRN PRN Reason: Saline Flush Spironolactone (Aldactone) 25 mg PO MWF [facility] Last Admin: 12/11/19 08:28 Dose: 25 mg Sucralfate (Carafate) 1 gm PO PRN PRN PRN Reason: GI Upset Last Admin: 12/10/19 08:42 Dose: 1 gm Vital Signs & Weight: Vital Signs Temp Pulse Resp BP BP BP Pulse Ox 12/12/19 08:01 97 12/12/19 07:59 73 16 97 12/12/19 05:30 162/78 H 12/12/19 04:00 99 F 82 18 170/74 H 98 12/12/19 00:02 71 16 96 07/15/20 21:05 137/63 Weight 232 lb - Physical Exam General: alert & oriented x3 HEENT: mucus membranes moist Neck: supple neck Cardiac: regular rate and rhythm, S1/S2 Lungs: decreased breath sounds Neuro: cranial nerve 2-12 intact Extremities: other: (pitting BLE edema, Lt>Rt, with Erythema) - Labs Result Diagrams: 12/12/19 03:58 12/12/19 03:58 Troponin/CKMB CK-MB (CK-2) 2.2 ng/mL (0-6.6) 12/07/19 14:29 Troponin I 0.146 ng/mL (< 0.028) H 12/10/19 08:38 - Telemetry Sinus rhythms and dysrhythmias: sinus rhythm - Assessment/Plan Assessment/Plan: 1. Chest discomfort - asymptomatic today; S/p LHC by Dr Jean on 08/06/2019 with normal coronary arteries except small vessel disease in the distal LAD; EF 60-65% and mild . 2. elevated trop - possible 2/2 Type 2 NSTEMI; LHC in 07/2019 with normal coronary arteries 3. persistent Afib - converted back to SR around 1300 on 12/08/2019; well controlled HR with coreg, Multaq, diltiazem; On Eliquis 5mg BID. 4. Sepsis 2/2 Cellulitis - Decreased erythema; on ABX 5. COPD/Asthma - stable with RA; the pt stated she can breath better today 6. SERENA on CKD - improving 7. hx of peptic ulcer disease 8. hx of TIA 9. Hx of Anemia 10. Obese MAR reviewed * Dr Jean's pt; S/p LHC by Dr Jean on 08/06/2019 with normal coronary arteries except small vessel disease in the distal LAD; EF 60-65% and mild . * Code: DNAR * From Cardiac standpoint, ok to d/c to home or tx to rehab. The pt will f/u with Dr Jean's office Pt. seen and eval, by me today. I agree with the A/P by the [employer]. She continues to have some wheezing but no rales. RRR. gjm
[2019-12-12] MEDS: DEXILANT 60 MG PO SCH (09:09)
[2019-12-12] MEDS: Dronedarone HCl 400 MG TAB PO SCH ×2 (09:09→18:01)
[2019-12-12] MEDS: Potassium Chloride 20 MEQ TAB PO SCH ×2 (09:09→18:00)
[2019-12-12] MEDS: Cefepime 2 GM in Sodium Chloride 0.9% 100 ML IVPB SCH (09:09)
[2019-12-12] MEDS: Furosemide 40 MG TAB PO SCH ×2 (09:10→14:59)
[2019-12-12] MEDS: Apixaban 5 MG TAB PO SCH ×2 (09:10→21:08)
[2019-12-12] MEDS: predniSONE 5 MG TAB PO SCH ×2 (09:10→18:00)
[2019-12-12] MEDS: Carvedilol 6.25 MG TAB PO SCH ×2 (09:10→21:08)
[2019-12-12] MEDS: NUCYNTA 200 MG PO SCH ×2 (09:10→21:09)
[2019-12-12] MEDS: Losartan 25 MG TAB PO SCH ×2 (09:10→21:09)
[2019-12-12] MEDS: Pramipexole Di-HCl 0.25 MG TAB PO SCH (21:09)
[2019-12-12] MEDS: Doxycycline 100 MG CAP PO SCH (21:09)
[2019-12-13 04:46] LABS: #Eosinphils 0.4 thou/uL (0.0-0.7); #Lymphocytes 1.2 thou/uL (1.20-3.40); #Monocytes 0.5 thou/uL (0.11-0.59); #Neutrophils 4.8 thou/uL (1.40-6.50); %Basophils 0.4 % (0.0-1.0); %Eosinophils 5.3 % (0.0-10.0); %Lymphocytes 17.8 % (21.0-51.0); %Monocytes 7.6 % (0.0-10.0); Hemoglobin 8.3 g/dL (12.0-16.0); Mean Corpuscular HGB CONC 30.5 g/dL (32.0-36.0); Mean Corpuscular Hemoglobin 26.3 pg (27.0-31.0); Mean Corpuscular Volume 86.1 fL (78.0-98.0); Mean Platelet Volume 7.6 fL (7.4-10.4); Platelet Count 222 thou/uL (130-400); RBC Distribution Width 14.7 % (11.5-14.5); Red Blood Cell (RBC) Count 3.15 mill/uL (4.20-5.40); White Blood Cell (WBC) Count 6.9 thou/uL (4.8-10.8)
[2019-12-13 05:04] LABS: Anion Gap 11 mmol/L (10-20); BUN (Urea Nitrogen) 22 mg/dL (9.8-20.1); Calc. Creatinine Clearance 60 mL/min (70-130); Calcium 8.8 mg/dL (7.8-10.44); Carbon Dioxide 29 mmol/L (23-31); Chloride 105 mmol/L (98-107); Estimated GFR-MDRD 41; Glucose 95 mg/dL (83-110); Potassium 3.5 mmol/L (3.5-5.1); Sodium 141 mmol/L (136-145)
--- NOTE | 2019-12-13 05:55 | PDOC.FM ---
- Subjective Subjective: Complaining of itching that began last night around her buttocks and now feels like it is all over her body. Reports nurse gave her some cream which seems to have improved the itching some. Denies SOB and says leg pain is slightly improved. - Objective Vital Signs & Weight: Vital Signs (12 hours) Temp Pulse Resp BP Pulse Ox 12/13/19 03:24 98.8 F 85 15 160/77 H 95 12/13/19 00:21 81 20 98 12/12/19 20:00 98.7 F 74 18 121/56 L 95 12/12/19 18:00 125/59 L Weight Weight 105.052 kg I&O: 12/11/19 12/12/19 12/13/19 06:59 06:59 06:59 Intake Total 1300 1760 1300 Output Total 1300 1350 1225 Balance 0 410 75 Result Diagrams: 12/13/19 09:01 12/13/19 09:01 Additional Labs: Rapid COVID swab - not detected EKG Reviewed by me: Yes (tele: sinus rhythm, HR 60-80s) Phys Exam - Physical Examination Constitutional: NAD HEENT: PERRLA, moist MMs, sclera anicteric Neck: full ROM Respiratory: no wheezing, no rales, no rhonchi, clear to auscultation bilateral expiratory wheezing bilaterally Cardiovascular: RRR, no significant murmur, no rub Gastrointestinal: soft, non-tender, no distention, positive bowel sounds Musculoskeletal: no edema, pulses present improved erythema and warmth bilaterally L still > R Neurological: moves all 4 limbs Psychiatric: normal affect, A&O x 3 Skin: no rash Dx/Plan - Plan Plan: Patient is a 79 y/o female with a PMH significant for A-Fib who presents to the ED for evaluation of fevers, chills and LE weakness and rash. # Sepsis 2/2 Cellulitis -fever Tmax 102 (12/07), afebrile since 12/08 -repeat BCx: no growth at 48 hours -Doxycycline (12/11) -[x] Clindamycin (12/06-12/07), Vancomycin (12/07-12/11), Cefepime (12/08-12/11) -pain, erythema and edema of both LE. -B/l venous doppler was negative -Procal: 0.44 -Lactic Acid: 0.7 -BNP: 155 - baseline unknown -D-Dimer: 0.29 -First BCx and UCx showed no growth at 5 days -PT/OT consulted -CM consult: Patient interested in short term inpatient rehab upon discharge. Referral sent and approval pending. Patient required negative COVID test to be accepted. Covid swab was negative. Will follow up with CM today. #NSTEMI Type 2 -cards consulted- Dr Justin held the lovenox. -Cath from [facility]/2019: EF: 60-65%. Essentially normal coronaries except small vessel disease in the distal LAD. She also has mild .In she also had mild elevation of the troponin I. -trop 0.8->0.9->0.7. Moved from medical floor to tele -will restart home meds: eliquis, carvedilol and diltiazem, multaq -Patient is stable from a cardiology standpoint and ready for discharge. #Hypokalemia - K 3.4>3.5 - on 40mg lasix BID - monitor daily, replace as needed #Tachypnea -resolved -Likely due to fluid overload. Questionable hx of CHF -gave one time lasix 40mg IV -receiving lasix 40mg BID PO # SERENA -(12/12) Cr 1.26, BUN 22, GFR 53 - -initial SERENA had resolved -Cr: 1.41->1.37->1.0->.97 - baseline unknown -FeNA 2.1%, suggestive of ATN, likely due to sepsis -Will renally dose all medications # Iron deficiency anemia -Fe 21 -unsure of hx of anemia and if on any medications, was unable to obtain records from [employer] -H/H worsened today 8.3/27.1 -Consider treatment in rehab # A-Fib -well controlled HR with coreg, Multaq, Diltiazem -On Eliquis 5mg BID -INR: 1.4 PCP: CC Code: DNAR Diet: HH VTE PPx: Home Eliquis PPI PPx: Protonix, Carafate prn Dispo: Inpatient, tele, NSTEMI and Sepsis 2/2 cellulitis, stable, LOS>48hrs. Patient ready for discharge pending inpatient rehab approval. Addendum - Attending - Attending Attestation Date/Time: 12/13/19 [id number] I personally evaluated the patient and discussed the management with Dr. Massey. I agree with the History, Examination, Assessment and Plan documented above with any addition or exceptions noted below. decrease lasix to qd 2/2 increase cr and d/c to rehab today. complete 14 total days of abx. f/u BMP in 1-2 days.
[2019-12-13] MEDS ORDERED: hydrOXYzine 25 MG TAB PO PRN (09:07)
[2019-12-13 09:14] LABS: Hemoglobin 9.1 g/dL (12.0-16.0)
[2019-12-13 09:15] LABS: Platelet Count 255 thou/uL (130-400)
[2019-12-13] MEDS: NUCYNTA 200 MG PO SCH ×2 (09:50→21:51)
[2019-12-13] MEDS: Carvedilol 6.25 MG TAB PO SCH ×2 (09:51→21:51)
[2019-12-13] MEDS: DEXILANT 60 MG PO SCH (09:51)
[2019-12-13] MEDS: Potassium Chloride 20 MEQ TAB PO SCH ×2 (09:52→18:19)
[2019-12-13] MEDS: Losartan 25 MG TAB PO SCH ×2 (09:52→21:51)
[2019-12-13] MEDS: predniSONE 5 MG TAB PO SCH ×2 (09:52→18:19)
[2019-12-13] MEDS: Dronedarone HCl 400 MG TAB PO SCH ×2 (09:52→18:19)
[2019-12-13] MEDS: Doxycycline 100 MG CAP PO SCH ×2 (09:52→21:51)
[2019-12-13] MEDS: Spironolactone 25 MG TAB PO SCH (09:53)
[2019-12-13] MEDS: Furosemide 40 MG TAB PO SCH (09:53)
[2019-12-13] MEDS: Apixaban 5 MG TAB PO SCH ×2 (09:53→21:50)
[2019-12-13] MEDS: Pramipexole Di-HCl 0.25 MG TAB PO SCH (21:51)
--- NOTE | 2019-12-13 23:44 | PDOC.CPN ---
- Subjective Date: 12/13/19 Time: 12:10 - Review of Systems General: reports: fatigue Respiratory: reports: congestion (improved from since admission.) Gastrointestinal: denies: nausea, vomiting, diarrhea, constipation, abd pain, GI bleeding Musculoskeletal: reports: tenderness, swelling Neurological: reports: weakness - Objective Allergies/Adverse Reactions: Allergies Allergy/AdvReac Type Severity Reaction Status Date / Time adhesive Allergy Verified 12/07/19 02:54 erythromycin base Allergy Verified 08/19/19 19:07 hydrocodone [From Lortab] Allergy Verified 08/19/19 19:07 metolazone [From Zaroxolyn] Allergy Verified 08/19/19 19:07 Penicillins Allergy Verified 08/19/19 19:07 Sulfa (Sulfonamide Allergy Verified 08/19/19 19:07 Antibiotics) tramadol [From Ultram] Allergy Verified 08/19/19 19:07 Visit Medications: Current Medications Acetaminophen (Tylenol) 650 mg PO Q4H PRN PRN Reason: Headache/Fever/Mild Pain (1-3) Last Admin: 12/12/19 05:22 Dose: 650 mg Albuterol/Ipratropium (Duoneb) 3 ml NEB [id number] [facility] Last Admin: 12/13/19 19:05 Dose: 3 ml Apixaban (Eliquis) 5 mg PO BID [facility] Last Admin: 12/13/19 21:50 Dose: 5 mg Calcium Carbonate (Tums) 1,000 mg PO Q4H PRN PRN Reason: Heartburn or Indigestion Carvedilol (Coreg) 6.25 mg PO BID [facility] Last Admin: 12/13/19 21:51 Dose: 6.25 mg Diltiazem HCl (Cardizem) 30 mg PO BID-[facility] Last Admin: 12/13/19 18:19 Dose: 30 mg Doxycycline Hyclate (Vibramycin) 100 mg PO BID [facility] Stop: 12/18/19 21:01 Last Admin: 12/13/19 21:51 Dose: 100 mg Dronedarone (Multaq) 400 mg PO BID-[facility] Last Admin: 12/13/19 18:19 Dose: 400 mg Furosemide (Lasix) 40 mg PO DAILY [facility] Hydromorphone HCl (Dilaudid) 2 mg PO TID PRN PRN Reason: Moderate to Severe Pain (6-10) Last Admin: 12/11/19 10:55 Dose: 2 mg Hydroxyzine HCl (Atarax) 25 mg PO PRN PRN PRN Reason: Itching Last Admin: 12/13/19 09:50 Dose: 25 mg Diltiazem HCl 125 mg/Miscellaneous Medication 1 each/ Sodium Chloride 125 mls @ 5 mls/hr IVPB INF [facility]; Protocol Losartan Potassium (Cozaar) 50 mg PO BID [facility] Last Admin: 12/13/19 21:51 Dose: 50 mg Ondansetron HCl (Zofran Odt) 4 mg PO Q6H PRN PRN Reason: Nausea/Vomiting Last Admin: 12/09/19 23:39 Dose: [address] Cap 0 each PO DAILY [facility] Last Admin: 12/13/19 09:51 Dose: 1 each Nucynta Er 200mg Tab 0 each PO BID [facility] Last Admin: 12/13/19 21:51 Dose: 1 each Potassium Chloride (K-Dur) 40 meq PO BID-[facility] Last Admin: 12/13/19 18:19 Dose: 40 meq Pramipexole Dihydrochloride (Mirapex) 0.5 mg PO HS [facility] Last Admin: 12/13/19 21:51 Dose: 0.5 mg Prednisone (Prednisone) 5 mg PO BID-WM [facility] Last Admin: 12/13/19 18:19 Dose: 5 mg Sodium Chloride (Flush - Normal Saline) 10 ml IVF Q12HR [facility] Last Admin: 12/13/19 21:52 Dose: 10 ml Sodium Chloride (Flush - Normal Saline) 10 ml IVF PRN PRN PRN Reason: Saline Flush Spironolactone (Aldactone) 25 mg PO MWF [facility] Last Admin: 12/13/19 09:53 Dose: 25 mg Sucralfate (Carafate) 1 gm PO PRN PRN PRN Reason: GI Upset Last Admin: 12/10/19 08:42 Dose: 1 gm Vital Signs & Weight: Vital Signs Temp Pulse Resp BP Pulse Ox 12/13/19 19:44 98.4 F 99 18 120/57 L 95 12/13/19 19:05 78 18 97 12/13/19 16:04 98.9 F 68 18 137/60 98 12/13/19 13:21 65 20 98 12/13/19 12:00 98.8 F 65 18 121/57 L 98 Weight 231 lb 9.6 oz - Quality Measures Condition: Atrial Fibrillation/Flutter (hx or current) - Physical Exam HEENT: mucus membranes moist Neck: supple neck Cardiac: regular rate and rhythm Lungs: wheezes Neuro: grossly intact - Labs Result Diagrams: 12/13/19 09:01 12/13/19 09:01 Troponin/CKMB CK-MB (CK-2) 2.2 ng/mL (0-6.6) 12/07/19 14:29 Troponin I 0.146 ng/mL (< 0.028) H 12/10/19 08:38 - Telemetry Sinus rhythms and dysrhythmias: sinus rhythm - Assessment/Plan Assessment/Plan: 1. Chest discomfort - asymptomatic today; S/p LHC by Dr Jean on 08/06/2019 with normal coronary arteries except small vessel disease in the distal LAD; EF 60-65% and mild . 2. elevated trop - possible 2/2 Type 2 NSTEMI; LHC in 07/2019 with normal coronary arteries 3. persistent Afib - converted back to SR around 1300 on 12/08/2019; well controlled HR with coreg, Multaq, diltiazem; On Eliquis 5mg BID. 4. Sepsis 2/2 Cellulitis - Decreased erythema; on ABX 5. COPD/Asthma - stable with RA; the pt stated she can breath better today 6. SERENA on CKD - improving 7. hx of peptic ulcer disease 8. hx of TIA 9. Hx of Anemia 10. Obese MAR reviewed * Dr Jean's pt; S/p LHC by Dr Jean on 08/06/2019 with normal coronary arteries except small vessel disease in the distal LAD; EF 60-65% and mild . * Code: DNAR * From Cardiac standpoint, ok to d/c to home or tx to rehab. The pt will f/u with Dr Jean's office
[2019-12-14 04:08] LABS: #Eosinphils 0.4 thou/uL (0.0-0.7); #Lymphocytes 1.3 thou/uL (1.20-3.40); #Monocytes 0.6 thou/uL (0.11-0.59); #Neutrophils 4.5 thou/uL (1.40-6.50); %Basophils 0.2 % (0.0-1.0); %Eosinophils 5.8 % (0.0-10.0); %Lymphocytes 19.5 % (21.0-51.0); %Monocytes 8.3 % (0.0-10.0); %Neutrophils 66.2 % (42.0-75.0); Hemoglobin 8.3 g/dL (12.0-16.0); Mean Corpuscular HGB CONC 30.7 g/dL (32.0-36.0); Mean Corpuscular Hemoglobin 26.2 pg (27.0-31.0); Mean Corpuscular Volume 85.5 fL (78.0-98.0); Mean Platelet Volume 7.7 fL (7.4-10.4); Platelet Count 261 thou/uL (130-400); RBC Distribution Width 14.6 % (11.5-14.5); Red Blood Cell (RBC) Count 3.18 mill/uL (4.20-5.40); White Blood Cell (WBC) Count 6.8 thou/uL (4.8-10.8)
[2019-12-14 04:41] LABS: Anion Gap 10 mmol/L (10-20); BUN (Urea Nitrogen) 24 mg/dL (9.8-20.1); Calc. Creatinine Clearance 63 mL/min (70-130); Calcium 8.9 mg/dL (7.8-10.44); Carbon Dioxide 28 mmol/L (23-31); Chloride 103 mmol/L (98-107); Estimated GFR-MDRD 43; Glucose 122 mg/dL (83-110); Potassium 3.5 mmol/L (3.5-5.1); Sodium 137 mmol/L (136-145)
--- NOTE | 2019-12-14 05:38 | PDOC.FM ---
- Subjective Subjective: Ms. Garcia is doing well today. Her leg pain has improved. She complains of itching on her buttocks and under her breasts. I told her she has prn hydroxyzine. - Objective Vital Signs & Weight: Vital Signs (12 hours) Temp Pulse Resp BP Pulse Ox 12/14/19 03:00 99.1 F 66 17 107/53 L 95 12/14/19 01:04 83 18 98 12/13/19 23:51 67 12/13/19 19:44 98.4 F 99 18 120/57 L 95 12/13/19 19:05 78 18 97 Weight Weight 151.001 kg I&O: 12/12/19 12/13/19 12/14/19 06:59 06:59 06:59 Intake Total 1760 1540 1330 Output Total 1350 1575 1700 Balance 410 -88 -612 Result Diagrams: 12/14/19 03:42 12/14/19 03:42 EKG Reviewed by me: Yes (tele: sinus, 1 AVB, 70s, PACs) Phys Exam - Physical Examination Constitutional: NAD HEENT: PERRLA, moist MMs, sclera anicteric Neck: full ROM bilateral expiratory wheezing, improved from previous exams Cardiovascular: RRR, no significant murmur, no rub Gastrointestinal: soft, non-tender, no distention, positive bowel sounds erythema and warmth LE b/l. L>R. improved from previous exams Neurological: moves all 4 limbs Psychiatric: normal affect, A&O x 3 Skin: no rash Dx/Plan - Plan Plan: Patient is a 79 y/o female with a PMH significant for A-Fib who presents to the ED for evaluation of fevers, chills and LE weakness and rash. # Sepsis 2/2 Cellulitis -fever Tmax 102 (12/07), afebrile since 0100 12/08 -Day 7 of antibiotics. Plan a 14 day course total. Doxycycline starting (12/11) -[x] Clindamycin (12/06-12/07), Vancomycin (12/07-12/11), Cefepime (12/08-12/11) -pain, erythema and edema of both LE improving -B/l venous doppler was negative -Procal: 0.44 -Lactic Acid: 0.7 -BNP: 155 - baseline unknown -D-Dimer: 0.29 -First BCx and UCx: no growth at 5 days. Repeat BCx: no growth at 48 hours -PT/OT consulted -CM consult: Has been approved for inpatient rehab, awaiting bed at [facility] #NSTEMI Type 2 -cards consulted- Dr Justin held the lovenox. -Cath from [facility]08/06/2019: EF: 60-65%. Essentially normal coronaries except small vessel disease in the distal LAD. She also has mild .In she also had mild elevation of the troponin I. -trop 0.8->0.9->0.7. Moved from medical floor to tele. -will restart home meds: eliquis, carvedilol and diltiazem, multaq -Patient is stable from a cardiology standpoint and ready for discharge. # SERENA -(12/12) Cr 1.26, BUN 22, GFR 53 - decreased lasix 40mg to qday from BID -initial SERENA had resolved -Cr: 1.41->1.37->1.0->.97 - baseline unknown -FeNA 2.1%, suggestive of ATN, likely due to sepsis -Will renally dose all medications #Pruritis -Patient complains of itching on her buttocks and under her breast. There is no rash or skin breakdown. Symptoms seem to coincide with when she started taking Doxycycline. Patient does not complain of any trouble breathing. -PRN hydroxyzine -will give a dose this morning #Hypokalemia - K 3.4>3.5 - decreased lasix 40mg to qday from BID - monitor daily, replace as needed #Tachypnea -resolved -Likely due to fluid overload. Questionable hx of CHF -gave one time lasix 40mg IV -receiving lasix 40mg BID PO # Iron deficiency anemia -Fe 21 -unsure of hx of anemia and if on any medications, was unable to obtain records from [employer] -H/H worsened today 8.3/27.1 -Consider treatment in rehab # A-Fib -well controlled HR with coreg, Multaq, Diltiazem -On Eliquis 5mg BID -INR: 1.4 PCP: CC Code: DNAR Diet: HH VTE PPx: Home Eliquis PPI PPx: Protonix, Carafate prn Dispo: Inpatient, tele, NSTEMI and Sepsis 2/2 cellulitis, stable, LOS>48hrs. Inpatient rehab approved, awaiting bed at [facility]
[2019-12-14] MEDS: DEXILANT 60 MG PO SCH (07:35)
[2019-12-14] MEDS ORDERED: hydrOXYzine 25 MG TAB PO SCH (07:59)
[2019-12-14] MEDS: Doxycycline 100 MG CAP PO SCH ×2 (08:50→21:39)
[2019-12-14] MEDS: Carvedilol 6.25 MG TAB PO SCH ×2 (08:51→21:38)
[2019-12-14] MEDS: Potassium Chloride 20 MEQ TAB PO SCH ×2 (08:52→17:36)
[2019-12-14] MEDS: Apixaban 5 MG TAB PO SCH ×2 (08:52→21:38)
[2019-12-14] MEDS: Furosemide 40 MG TAB PO SCH (08:52)
[2019-12-14] MEDS: Dronedarone HCl 400 MG TAB PO SCH ×2 (08:52→17:36)
[2019-12-14] MEDS: predniSONE 5 MG TAB PO SCH ×2 (08:52→17:36)
[2019-12-14] MEDS: Losartan 25 MG TAB PO SCH ×2 (08:53→21:39)
[2019-12-14] MEDS: NUCYNTA 200 MG PO SCH ×2 (09:22→21:39)
--- NOTE | 2019-12-14 18:36 | PRG ---
DATE OF SERVICE: 12/14/2019 Please see the note from Dr. Abelino Massey, for which I agree. Still treating her cellulitis, waiting on a bed at the long term. Sounds like she has chronic stasis dermatitis of her legs and then got infected, but is stable on current antibiotics, although has not completely cleared. Probably, add some topical steroid to help with dermatitis component with this as we continue to treat the infection with p.o. doxycycline it looks like. Job ID: [id number]
[2019-12-14] MEDS: Triamcinolone 0.1% Cream 15 GM TUBE TOP SCH (21:39)
[2019-12-14] MEDS: Pramipexole Di-HCl 0.25 MG TAB PO SCH (21:39)
[2019-12-15 04:17] LABS: #Eosinphils 0.3 thou/uL (0.0-0.7); #Lymphocytes 1.5 thou/uL (1.20-3.40); #Monocytes 0.4 thou/uL (0.11-0.59); #Neutrophils 3.9 thou/uL (1.40-6.50); %Basophils 0.2 % (0.0-1.0); %Eosinophils 4.4 % (0.0-10.0); %Lymphocytes 24.2 % (21.0-51.0); %Monocytes 7.1 % (0.0-10.0); Hemoglobin 8.5 g/dL (12.0-16.0); Mean Corpuscular HGB CONC 31.2 g/dL (32.0-36.0); Mean Corpuscular Hemoglobin 26.8 pg (27.0-31.0); Mean Corpuscular Volume 85.7 fL (78.0-98.0); Mean Platelet Volume 7.4 fL (7.4-10.4); Platelet Count 274 thou/uL (130-400); RBC Distribution Width 14.7 % (11.5-14.5); Red Blood Cell (RBC) Count 3.17 mill/uL (4.20-5.40); White Blood Cell (WBC) Count 6.2 thou/uL (4.8-10.8)
[2019-12-15 04:31] LABS: Anion Gap 10 mmol/L (10-20); BUN (Urea Nitrogen) 25 mg/dL (9.8-20.1); Calc. Creatinine Clearance 93 mL/min (70-130); Carbon Dioxide 30 mmol/L (23-31); Chloride 104 mmol/L (98-107); Estimated GFR-MDRD 45; Glucose 105 mg/dL (83-110); Potassium 3.4 mmol/L (3.5-5.1); Sodium 141 mmol/L (136-145)
--- NOTE | 2019-12-15 05:54 | PDOC.FM ---
- Subjective Subjective: Ms. Garcia is feeling well this morning. She says she didn't sleep much and is tired. The pain in her legs is still present but has improved. - Objective Vital Signs & Weight: Vital Signs (12 hours) Temp Pulse Resp BP Pulse Ox 12/15/19 03:45 97.9 F 63 16 125/85 97 12/15/19 00:36 61 16 97 12/14/19 20:09 98.1 F 69 16 137/60 99 12/14/19 18:49 68 16 98 Weight Weight 105.324 kg I&O: 12/13/19 12/14/19 12/15/19 06:59 06:59 06:59 Intake Total 1540 1330 1390 Output Total 1575 1700 1500 Balance -35 -370 -110 Result Diagrams: 12/15/19 03:55 12/15/19 03:55 EKG Reviewed by me: Yes (tele: sinus rhythm, 60s) Phys Exam - Physical Examination Constitutional: NAD HEENT: PERRLA, moist MMs, sclera anicteric Neck: full ROM Respiratory: no wheezing, no rales, no rhonchi, clear to auscultation bilateral Cardiovascular: RRR, no significant murmur, no rub Gastrointestinal: soft, non-tender, no distention, positive bowel sounds erythema, warmth of LE bilaterally. Improved from yesterday's exam. Neurological: moves all 4 limbs Psychiatric: normal affect, A&O x 3 Dx/Plan - Plan Plan: Patient is a 79 y/o female with a PMH significant for A-Fib who presents to the ED for evaluation of fevers, chills and LE weakness and rash. # Sepsis 2/2 Cellulitis -fever Tmax 102 (12/07), afebrile since 0100 12/08 -Day 8 of antibiotics. Plan for additional 10 days after discharge. Doxycycline starting (12/11) -Started on Kenalog cream for legs, twice a day -[x] Clindamycin (12/06-12/07), Vancomycin (12/07-12/11), Cefepime (12/08-12/11) -pain, erythema and edema of both LE improving -B/l venous doppler was negative -Procal: 0.44, lactate: 0.7, BNP: 155, Ddimer: 0.29 -First BCx and UCx: no growth at 5 days. Repeat BCx: no growth at 5 days -PT/OT consulted -CM consult: Has been approved for inpatient rehab, awaiting bed at [facility] #NSTEMI Type 2 -cards consulted- Dr Justin held the lovenox. -Cath from [facility]08/06/2019: EF: 60-65%. Essentially normal coronaries except small vessel disease in the distal LAD. She also has mild .In she also had mild elevation of the troponin I. -trop 0.8->0.9->0.7. Moved from medical floor to tele. -will restart home meds: eliquis, carvedilol and diltiazem, multaq -Patient is stable from a cardiology standpoint and ready for discharge. # SERENA -(12/12) Cr 1.26, BUN 22, GFR 53 - decreased lasix 40mg to qday from BID -initial SERENA had resolved -Cr: 1.41->1.37->1.0->.97 - baseline unknown -FeNA 2.1%, suggestive of ATN, likely due to sepsis -Will renally dose all medications #Pruritis -Patient complains of itching on her buttocks and under her breast. There is no rash or skin breakdown. Symptoms seem to coincide with when she started taking Doxycycline. Patient does not complain of any trouble breathing. -PRN hydroxyzine -will give a dose this morning #Hypokalemia - K 3.4>3.5 - decreased lasix 40mg to qday from BID - monitor daily, replace as needed #Tachypnea -resolved -Likely due to fluid overload. Questionable hx of CHF -gave one time lasix 40mg IV -receiving lasix 40mg BID PO # Iron deficiency anemia -Fe 21 -unsure of hx of anemia and if on any medications, was unable to obtain records from [employer] [facility] [employer] -H/H worsened today 8.3/27.1 -Consider treatment in rehab # A-Fib -well controlled HR with coreg, Multaq, Diltiazem -On Eliquis 5mg BID -INR: 1.4 PCP: CC Code: DNAR Diet: HH VTE PPx: Home Eliquis PPI PPx: Protonix, Carafate prn Dispo: Inpatient, tele, NSTEMI and Sepsis 2/2 cellulitis, stable, LOS>48hrs. Inpatient rehab approved, awaiting bed at [facility]
[2019-12-15 07:27] VITALS: TEMP 98.1
[2019-12-15] MEDS: Dronedarone HCl 400 MG TAB PO SCH (07:31)
[2019-12-15] MEDS: DEXILANT 60 MG PO SCH (07:32)
[2019-12-15] MEDS: predniSONE 5 MG TAB PO SCH (07:32)
[2019-12-15] MEDS: Potassium Chloride 20 MEQ TAB PO SCH (07:32)
[2019-12-15] MEDS: NUCYNTA 200 MG PO SCH (08:58)
[2019-12-15] MEDS: Doxycycline 100 MG CAP PO SCH (08:59)
[2019-12-15] MEDS: Carvedilol 6.25 MG TAB PO SCH (08:59)
[2019-12-15] MEDS: Apixaban 5 MG TAB PO SCH (09:01)
[2019-12-15] MEDS: Furosemide 40 MG TAB PO SCH (09:01)
[2019-12-15] MEDS: Losartan 25 MG TAB PO SCH (09:01)
[2019-12-15] MEDS: Triamcinolone 0.1% Cream 15 GM TUBE TOP SCH (09:05)
[2019-12-15 12:28] VITALS: BP 174/76
--- NOTE | 2019-12-15 15:57 | PRG ---
DATE OF SERVICE: 12/15/2019 Please see note [address] Dr. Abelino Massey, for which I agree. The patient was seen, evaluated, discussed, and examined with the residents by bedside. No major changes, actually is improving on current doxycycline and the addition of topical steroids helped quite a bit. Still a lot of chronic edema, usually wears ROSIE hoses at home and is on diuretics. Really at this point in time, we are just waiting on placement for rehab definitely deconditioned and weak and is probably not safe to be at home. Job ID: [id number]
--- NOTE | 2019-12-17 01:37 | DIS ---
DATE OF ADMISSION: 12/06/2019 DATE OF DISCHARGE: 12/15/2019 RESIDENT: Abelino Massey MD ADMITTING ATTENDING: Doug Bauer MD DISCHARGE ATTENDING: Gonzalez Coburn MD CONSULTS: Cardiology, Dr. Justin; Case Management; OT and PT. PROCEDURES: None. PRIMARY DIAGNOSIS: Sepsis secondary to bilateral lower extremity cellulitis. SECONDARY DIAGNOSES: Acute kidney injury, normocytic anemia, atrial fibrillation, as well as iron-deficiency anemia and NSTEMI type 2. DISCHARGE MEDICATIONS: 1. Diltiazem 125 mg. 2. Doxycycline 100 mg oral twice daily. 3. Kenalog cream topical twice daily. 4. Spironolactone one tab oral. 5. Tapentadol one tab oral twice daily. 6. Prednisone 5 mg oral twice daily with meals. 7. Dexilant one tab oral every morning. 8. Pramipexole 2 tabs oral at bedtime. 9. Singulair 10 mg oral at bedtime. 10. Hydromorphone one tab oral 3 times daily as needed. 11. Potassium chloride 10 mEq oral at bedtime. 12. Zinc 50 mg oral daily. 13. Vitamin E 400 units oral as directed. 14. Vitamin B12 at 1000 mcg oral daily. 15. Vitamin D3 at 1000 units oral daily. 16. Hydrochlorothiazide one tab oral as directed. 17. Ipratropium albuterol sulfate 3 mL nebulized every 6 hours as needed. 18. Nitroglycerin 0.4 mg sublingual as needed. 19. Fluticasone/vilanterol one inhaler daily. 20. Multaq 400 mg oral twice daily after meals. 21. Diltiazem 30 mg oral twice daily after meals. 22. Carvedilol 6.25 mg oral. 23. Losartan potassium 50 mg oral twice daily. 24. Lasix 40 mg oral as directed. 25. Hydroxyzine 25 mg oral every 6 hours as needed. 26. Aluminium and magnesium hydroxide 30 mL oral every 4 hours as needed. 27. Eliquis 5 mg oral twice daily. 28. MiraLax 17 g oral daily as needed. DISCONTINUED MEDICATIONS: None. HISTORY OF PRESENT ILLNESS/HOSPITAL COURSE: 79 yo female with a complex PMH and poor medical insight presents complaining of fevers, chills, weakness, LE erythema, LE pain and general malaise. She reports an increased difficulty ambulating with her walker due to weakness and LE pain as well as a rash on her LE that has been spreading. These symptoms have been present for several days. Patient received Vanc and NS in ED. EKG showed NSR with PACs, CXR was consistent with March imaging which shows mild increased density in the lateral left base which could signify soft tissue attenuation, pleural thickening, volume loss or infiltrate. Patient was found to be febrile at 102, tachycardic and tachypneic. Suspect LE cellulitis as sepsis source. Patient was started on vancomycin and clindamycin. After two days clindamycin was discontinued and patient was started on cefepime. LE swelling and erythema improved and patient remained afebrile. Patient was switched to PO Doxycycline which should be continued for an additional 10 days after discharge. Patient was also started on kenalog cream for her LE to be applied twice a day. B/l venous doppler was negative. Two sets of blood cultures and a urine culture showed no growth at 5 days. Within four hours of admission patient began experiencing increased work of breathing and was tachycardic to the 120s. Stat EKG revealed no ST elevation , troponins resulted with results of 0.8, 0.9, 0.7. Cardiology was consulted for a NSTEMI. Dr. Justin held the patient's lovenox and continued her home eliquis , carvedilol, diltiazem, and multaq. Cath from 07/2019 revealed an EF 60-65% and essentially normal coronaries except small vessel disease in distal ALD. Patient also had an SERENA at time of admission with a Cr of 1.41. FeNa 2.1% suggested ATN, likely due to sepsis. This resolved. Patient was discharged on once daily lasix. Patient was found to have iron deficiency anemia during stay which should be followed up outpatient. Of note, after started oral doxycycline patient began experiencing pruritis on her buttocks and abdomen. She was prescribed prn hydroxyzine. Patient was discharged to inpatient rehab to help her ADLs and ambulation. DISPOSITION: Stable. DISCHARGE INSTRUCTIONS: 1. Location: Inpatient rehab. 2. Diet: Heart healthy. 3. Activity: As tolerated. 4. Followup: Follow up PCP in 6 to 8 weeks. [facility] [id number] [facility]
== END 2019-12-15 15:34 | DRG 871 ==
LOC: ERS 20:30 → T4-B 22:18 → 2NO 12-07 12:52
PROVIDERS: ADMIT Student in an Organized Health Care Education/Training Program; ATTEND Student in an Organized Health Care Education/Training Program
DX: A41.9 Sepsis, unspecified organism (principal); I21.A1 Myocardial infarction type 2; N17.9 Acute kidney failure, unspecified; L03.116 Cellulitis of left lower limb; L03.115 Cellulitis of right lower limb; I48.19 Other persistent atrial fibrillation; Z66 Do not resuscitate; Z11.59 Encounter for screening for other viral diseases; G47.33 Obstructive sleep apnea (adult) (pediatric); G89.4 Chronic pain syndrome; M35.3 Polymyalgia rheumatica; K21.9 Gastro-esophageal reflux disease without esophagitis; J44.9 Chronic obstructive pulmonary disease, unspecified; I35.0 Nonrheumatic aortic (valve) stenosis; E66.01 Morbid (severe) obesity due to excess calories; I87.2 Venous insufficiency (chronic) (peripheral); D50.9 Iron deficiency anemia, unspecified; L29.9 Pruritus, unspecified; E87.6 Hypokalemia; Z68.38 Body mass index [BMI] 38.0-38.9, adult; I25.2 Old myocardial infarction; Z86.73 Personal history of transient ischemic attack (TIA), and cerebral infarction without residual deficits; Z90.49 Acquired absence of other specified parts of digestive tract; Z98.1 Arthrodesis status; Z79.899 Other long term (current) drug therapy; Z79.01 Long term (current) use of anticoagulants; Z79.52 Long term (current) use of systemic steroids; Z88.1 Allergy status to other antibiotic agents; Z88.0 Allergy status to penicillin; Z88.2 Allergy status to sulfonamides; Z88.8 Allergy status to other drugs, medicaments and biological substances; Z87.11 Personal history of peptic ulcer disease
CPT/HCPCS: 36415; 71045; 80048; 80053; 80202; 82553; 82570; 83540; 83550; 83605; 83735; 83880; 84100; 84145; 84300; 84443; 84484; 85025; 85379; 85610; 85730; 87040; 93005; 93010; 93970; 94640; 96361; 96365; J0692; J1650; J1940; J3370; J3480; J3490; J7030; J7050; J7512; J7620; Q0162; U0002

== ENCOUNTER 2020-09-30 10:12 | Inpatient (IN) | payer MEDICARE ==
[2020-09-30 11:12] LABS: #Eosinphils 0.2 thou/uL (0.0-0.7); #Lymphocytes 1.3 thou/uL (1.20-3.40); #Monocytes 0.7 thou/uL (0.11-0.59); #Neutrophils 7.3 thou/uL (1.40-6.50); %Basophils 0.4 % (0.0-1.0); %Eosinophils 2.4 % (0.0-10.0); %Lymphocytes 13.2 % (21.0-51.0); %Monocytes 7.2 % (0.0-10.0); %Neutrophils 76.7 % (42.0-75.0); Hemoglobin 11.1 g/dL (12.0-16.0); Mean Corpuscular HGB CONC 31.5 g/dL (32.0-36.0); Mean Corpuscular Hemoglobin 30.6 pg (27.0-31.0); Mean Corpuscular Volume 97.1 fL (78.0-98.0); Mean Platelet Volume 7.9 fL (7.4-10.4); Platelet Count 167 thou/uL (130-400); RBC Distribution Width 14.5 % (11.5-14.5); Red Blood Cell (RBC) Count 3.62 mill/uL (4.20-5.40); White Blood Cell (WBC) Count 9.5 thou/uL (4.8-10.8)
[2020-09-30 11:47] LABS: ALT (SGPT) 22 U/L (8-55); AST (SGOT) 35 U/L (5-34); Albumin 3.6 g/dL (3.4-4.8); Alkaline Phosphatase 65 U/L (40-110); Anion Gap 16 mmol/L (10-20); BUN (Urea Nitrogen) 33 mg/dL (9.8-20.1); Bilirubin, Total 0.5 mg/dL (0.2-1.2); Calc. Creatinine Clearance 0 mL/min (70-130); Calcium 9.2 mg/dL (7.8-10.44); Carbon Dioxide 28 mmol/L (23-31); Chloride 101 mmol/L (98-107); Globulin 2.7 g/dL (2.4-3.5); Glucose 99 mg/dL (83-110); Potassium 4.4 mmol/L (3.5-5.1); Protein, Total 6.3 g/dL (5.8-8.1); Sodium 141 mmol/L (136-145)
[2020-09-30] MEDS ORDERED: Aspirin Chewable 81 MG TAB ONE (13:15)
[2020-09-30] MEDS ORDERED: Ondansetron PF 4 MG/2 ML Vial IVP PRN (14:35)
[2020-09-30] MEDS ORDERED: Nitroglycerin 0.4 MG TAB (25 Tab Bottle) SL PRN (14:42)
[2020-09-30 14:49] LABS: SARS-CoV-2 NAA Rapid Test Not Detected (NotDetected)
[2020-09-30] MEDS ORDERED: methylPREDNISolone Sod Succ 40 MG VIAL IVP SCH (15:00)
[2020-09-30 16:18] LABS: Troponin I Less than 0.010 ng/mL (< 0.028)
[2020-09-30] MEDS ORDERED: Bacteriostatic Water 30 ML VIAL FS PRN (17:00)
[2020-09-30] MEDS: Carvedilol 6.25 MG TAB PO SCH (17:41)
[2020-09-30] MEDS: Apixaban 5 MG TAB PO SCH (20:25)
[2020-09-30 20:59] VITALS: BMI 43.4
[2020-10-01] MEDS: methylPREDNISolone Sod Succ 40 MG VIAL IVP SCH ×2 (00:39→11:08)
[2020-10-01 05:03] LABS: #Eosinphils 0.1 thou/uL (0.0-0.7); #Lymphocytes 0.8 thou/uL (1.20-3.40); #Monocytes 0.2 thou/uL (0.11-0.59); #Neutrophils 6.3 thou/uL (1.40-6.50); %Eosinophils 0.9 % (0.0-10.0); %Monocytes 2.1 % (0.0-10.0); %Neutrophils 85.9 % (42.0-75.0); Hemoglobin 10.6 g/dL (12.0-16.0); Mean Corpuscular Hemoglobin 32.3 pg (27.0-31.0); Mean Corpuscular Volume 97.8 fL (78.0-98.0); Mean Platelet Volume 7.5 fL (7.4-10.4); Platelet Count 164 thou/uL (130-400); RBC Distribution Width 14.1 % (11.5-14.5); Red Blood Cell (RBC) Count 3.29 mill/uL (4.20-5.40); White Blood Cell (WBC) Count 7.3 thou/uL (4.8-10.8)
[2020-10-01 05:25] LABS: Anion Gap 9 mmol/L (10-20); BUN (Urea Nitrogen) 28 mg/dL (9.8-20.1); Calc. Creatinine Clearance 73 mL/min (70-130); Calcium 9.3 mg/dL (7.8-10.44); Carbon Dioxide 33 mmol/L (23-31); Chloride 102 mmol/L (98-107); Glucose 114 mg/dL (83-110); Potassium 3.9 mmol/L (3.5-5.1); Sodium 140 mmol/L (136-145)
[2020-10-01 05:31] LABS: ALT (SGPT) 19 U/L (8-55); AST (SGOT) 16 U/L (5-34); Albumin 3.3 g/dL (3.4-4.8); Alkaline Phosphatase 59 U/L (40-110); Bilirubin, Direct 0.2 mg/dL (0.1-0.3); Bilirubin, Total 0.4 mg/dL (0.2-1.2); Protein, Total 5.8 g/dL (5.8-8.1)
[2020-10-01] MEDS: Carvedilol 6.25 MG TAB PO SCH ×2 (07:16→16:01)
[2020-10-01] MEDS: Apixaban 5 MG TAB PO SCH ×2 (07:16→21:03)
[2020-10-01] MEDS ORDERED: Non-Formulary Item 1 EACH (Cyanocobalamin (Vitamin B-12) [Vitamin B12] 2,500 MCG Tab.Chew PO SCH (09:00)
[2020-10-01] MEDS ORDERED: Non-Formulary Item 1 EACH (Losartan Potassium [Losartan Potassium] 50 MG Tablet) PO SCH (09:00)
[2020-10-01] MEDS ORDERED: Non-Formulary Item 1 EACH (Potassium Chloride [Potassium Chloride] 10 MEQ Capsule.Er) PO SCH (09:00)
[2020-10-01] MEDS ORDERED: TAPENTADOL HCL 200 MG PO SCH (09:00)
[2020-10-01] MEDS ORDERED: Non-Formulary Item 1 EACH (Fluticasone/Vilanterol [Breo Ellipta] 100 MCG/25 MCG Blst.W.De INH SCH (09:00)
[2020-10-01] MEDS ORDERED: Non-Formulary Item 1 EACH (Diltiazem Hcl [Cardizem] 60 MG Tab) PO SCH (09:00)
[2020-10-01] MEDS ORDERED: Non-Formulary Item 1 EACH (Hydrochlorothiazide [Hydrochlorothiazide] 12.5 MG Tablet) PO SCH (09:00)
[2020-10-01] MEDS: Losartan 25 MG TAB PO SCH ×2 (09:51→21:04)
[2020-10-01] MEDS: Saccharomyces boulardii 250 MG CAP PO SCH (09:51)
[2020-10-01] MEDS: Zinc Sulfate 220 MG CAP PO SCH (09:51)
[2020-10-01] MEDS: Potassium Chloride 10 MEQ TAB PO SCH ×2 (09:51→21:05)
[2020-10-01] MEDS: Torsemide 20 MG TAB PO SCH (11:08)
[2020-10-01] MEDS ORDERED: Doxycycline 100 MG CAP PO SCH ×2 (13:00→21:00)
[2020-10-01] MEDS: Dronedarone HCl 400 MG TAB PO SCH (16:01)
[2020-10-01] MEDS: Mometasone 100 MCG/Formoterol 5 MCG 120 PUFF INHALER INH SCH (19:25)
[2020-10-01] MEDS ORDERED: Non-Formulary Item 1 EACH (Folic Acid [Folic Acid] 0.8 MG Tablet) PO SCH (21:00)
[2020-10-01] MEDS: DULoxetine 30 MG CAP PO SCH (21:04)
[2020-10-01] MEDS: Montelukast Sodium 10 mg Tablet PO SCH (21:04)
[2020-10-01] MEDS: Folic Acid 1 MG TAB PO SCH (21:04)
[2020-10-01] MEDS: Pramipexole Di-HCl 0.25 MG TAB PO SCH (21:05)
[2020-10-02] MEDS: methylPREDNISolone Sod Succ 40 MG VIAL IVP SCH ×3 (00:42→23:18)
[2020-10-02 05:55] LABS: #Monocytes 0.1 thou/uL (0.11-0.59); #Neutrophils 6.9 thou/uL (1.40-6.50); %Basophils 0.4 % (0.0-1.0); %Eosinophils 0.4 % (0.0-10.0); %Lymphocytes 11.9 % (21.0-51.0); %Monocytes 1.7 % (0.0-10.0); %Neutrophils 85.6 % (42.0-75.0); Hemoglobin 11.3 g/dL (12.0-16.0); Mean Corpuscular HGB CONC 31.6 g/dL (32.0-36.0); Mean Corpuscular Hemoglobin 30.6 pg (27.0-31.0); Mean Corpuscular Volume 96.8 fL (78.0-98.0); Mean Platelet Volume 7.5 fL (7.4-10.4); Platelet Count 179 thou/uL (130-400); RBC Distribution Width 14.2 % (11.5-14.5); Red Blood Cell (RBC) Count 3.71 mill/uL (4.20-5.40); White Blood Cell (WBC) Count 8.1 thou/uL (4.8-10.8)
[2020-10-02 06:13] LABS: Anion Gap 10 mmol/L (10-20); BUN (Urea Nitrogen) 28 mg/dL (9.8-20.1); Calc. Creatinine Clearance 75 mL/min (70-130); Calcium 9.6 mg/dL (7.8-10.44); Carbon Dioxide 33 mmol/L (23-31); Chloride 102 mmol/L (98-107); Glucose 144 mg/dL (83-110); Potassium 4.2 mmol/L (3.5-5.1); Sodium 141 mmol/L (136-145)
[2020-10-02] MEDS ORDERED: Non-Formulary Item 1 EACH (Dexlansoprazole [Dexilant] 60 MG Cap.Dr.Bp) PO SCH (07:30)
[2020-10-02] MEDS: Hydrochlorothiazide 25 MG TAB PO SCH (07:42)
[2020-10-02] MEDS: Saccharomyces boulardii 250 MG CAP PO SCH (07:42)
[2020-10-02] MEDS: Cyanocobalamin (Vitamin B-12) 1,000 MCG TAB PO SCH (07:43)
[2020-10-02] MEDS: Losartan 25 MG TAB PO SCH ×2 (07:43→19:56)
[2020-10-02] MEDS: Zinc Sulfate 220 MG CAP PO SCH (07:43)
[2020-10-02] MEDS: Dronedarone HCl 400 MG TAB PO SCH ×2 (07:44→15:30)
[2020-10-02] MEDS: Carvedilol 6.25 MG TAB PO SCH ×2 (07:44→15:30)
[2020-10-02] MEDS: Apixaban 5 MG TAB PO SCH ×2 (07:44→19:55)
[2020-10-02] MEDS: Potassium Chloride 10 MEQ TAB PO SCH ×2 (07:44→19:57)
[2020-10-02] MEDS: Mometasone 100 MCG/Formoterol 5 MCG 120 PUFF INHALER INH SCH ×2 (08:21→19:35)
[2020-10-02] MEDS ORDERED: Spironolactone 25 MG TAB PO SCH (09:00)
[2020-10-02] MEDS: Spironolactone 25 MG TAB PO SCH ×2 (09:15→11:49)
[2020-10-02] MEDS: Torsemide 20 MG TAB PO SCH (11:48)
[2020-10-02] MEDS: hydrALAZINE 20 MG/ML VIAL SLOW IVP PRN (15:02)
[2020-10-02] MEDS: Montelukast Sodium 10 mg Tablet PO SCH (19:56)
[2020-10-02] MEDS ORDERED: Acetaminophen 325 MG TAB PO PRN (19:56)
[2020-10-02] MEDS: Folic Acid 1 MG TAB PO SCH (19:56)
[2020-10-02] MEDS: DULoxetine 30 MG CAP PO SCH (19:56)
[2020-10-02] MEDS: Pramipexole Di-HCl 0.25 MG TAB PO SCH (19:57)
[2020-10-03] MEDS ORDERED: HYDROmorphone 2 MG TAB PO PRN (00:53)
[2020-10-03] MEDS: hydrALAZINE 20 MG/ML VIAL SLOW IVP PRN (01:37)
[2020-10-03] MEDS ORDERED: Metoprolol Tartrate 5 MG/5 ML VIAL IVP PRN ×2 (04:11→10:17)
[2020-10-03 04:46] LABS: #Lymphocytes 0.9 thou/uL (1.20-3.40); #Monocytes 0.2 thou/uL (0.11-0.59); #Neutrophils 10.5 thou/uL (1.40-6.50); %Eosinophils 0.2 % (0.0-10.0); %Monocytes 1.9 % (0.0-10.0); %Neutrophils 89.9 % (42.0-75.0); Hemoglobin 12.2 g/dL (12.0-16.0); Mean Corpuscular HGB CONC 31.2 g/dL (32.0-36.0); Mean Corpuscular Hemoglobin 29.8 pg (27.0-31.0); Mean Corpuscular Volume 95.6 fL (78.0-98.0); Mean Platelet Volume 7.7 fL (7.4-10.4); Platelet Count 218 thou/uL (130-400); RBC Distribution Width 14.2 % (11.5-14.5); Red Blood Cell (RBC) Count 4.11 mill/uL (4.20-5.40); White Blood Cell (WBC) Count 11.7 thou/uL (4.8-10.8)
[2020-10-03 04:59] LABS: Anion Gap 15 mmol/L (10-20); BUN (Urea Nitrogen) 29 mg/dL (9.8-20.1); Calc. Creatinine Clearance 62 mL/min (70-130); Calcium 9.8 mg/dL (7.8-10.44); Carbon Dioxide 27 mmol/L (23-31); Chloride 101 mmol/L (98-107); Glucose 195 mg/dL (83-110); Potassium 3.9 mmol/L (3.5-5.1); Sodium 139 mmol/L (136-145)
[2020-10-03] MEDS: Metoprolol Tartrate 5 MG/5 ML VIAL IVP PRN ×2 (05:42→06:15)
[2020-10-03] MEDS: Mometasone 100 MCG/Formoterol 5 MCG 120 PUFF INHALER INH SCH ×2 (07:17→20:23)
[2020-10-03] MEDS: Zinc Sulfate 220 MG CAP PO SCH (07:47)
[2020-10-03] MEDS: Dronedarone HCl 400 MG TAB PO SCH ×2 (07:47→16:39)
[2020-10-03] MEDS: Saccharomyces boulardii 250 MG CAP PO SCH (07:47)
[2020-10-03] MEDS: Carvedilol 6.25 MG TAB PO SCH ×3 (07:48→17:03)
[2020-10-03] MEDS: Losartan 25 MG TAB PO SCH ×2 (07:48→21:50)
[2020-10-03] MEDS: Apixaban 5 MG TAB PO SCH ×2 (07:49→21:50)
[2020-10-03] MEDS: Hydrochlorothiazide 25 MG TAB PO SCH (07:49)
[2020-10-03] MEDS: Potassium Chloride 10 MEQ TAB PO SCH ×2 (07:49→21:50)
[2020-10-03] MEDS: Spironolactone 25 MG TAB PO SCH (07:49)
[2020-10-03] MEDS: Cyanocobalamin (Vitamin B-12) 1,000 MCG TAB PO SCH (07:49)
[2020-10-03 11:57] LABS: Bilirubin Negative (Negative); Blood, Urine Negative (Negative); Clarity Clear (Clear); Glucose, Urine (Dipstick) 100 mg/dL (Negative); Ketone, Urine Negative (Negative); Leukocyte 500 Leu/uL (Negative); Nitrite Negative (Negative); Protein, Urine (Dipstick) Negative (Neg-Trace); RBC/HPF 0-3 HPF (0-3); Specific Gravity, Urine 1.019 (1.002-1.036); Squamous Epithelial None Seen HPF (0-3); Urobilinogen Normal mg/dL (Less than 2); WBC/HPF Greater than 50 HPF (0-3)
[2020-10-03 11:58] LABS: Bacteria/HPF Rare-Few HPF (None Seen)
[2020-10-03] MEDS: methylPREDNISolone Sod Succ 40 MG VIAL IVP SCH ×2 (12:28→23:20)
[2020-10-03] MEDS: Torsemide 20 MG TAB PO SCH (12:28)
[2020-10-03] MEDS: Diltiazem 125 MG in Sodium Chloride 0.9% 100 ML IVPB SCH (16:27)
[2020-10-03] MEDS ORDERED: DEXILANT 60 MG PO SCH (17:30)
[2020-10-03] MEDS: TAPENTADOL HCL 200 MG PO SCH ×3 (18:14→18:31)
[2020-10-03] MEDS: Montelukast Sodium 10 mg Tablet PO SCH (21:50)
[2020-10-03] MEDS: Folic Acid 1 MG TAB PO SCH (21:50)
[2020-10-03] MEDS: Pramipexole Di-HCl 0.25 MG TAB PO SCH (21:50)
[2020-10-03] MEDS: DULoxetine 30 MG CAP PO SCH (21:50)
[2020-10-04] MEDS: Digoxin 0.5 MG/2 ML AMP SLOW IVP SCH ×2 (06:49→14:24)
[2020-10-04] MEDS: Mometasone 100 MCG/Formoterol 5 MCG 120 PUFF INHALER INH SCH ×2 (06:56→19:36)
[2020-10-04] MEDS: DEXILANT 60 MG PO SCH (07:40)
[2020-10-04] MEDS: Hydrochlorothiazide 25 MG TAB PO SCH (08:47)
[2020-10-04] MEDS: Spironolactone 25 MG TAB PO SCH (08:47)
[2020-10-04] MEDS: Saccharomyces boulardii 250 MG CAP PO SCH (08:47)
[2020-10-04] MEDS: Dronedarone HCl 400 MG TAB PO SCH ×2 (08:47→17:10)
[2020-10-04] MEDS: Zinc Sulfate 220 MG CAP PO SCH (08:47)
[2020-10-04] MEDS: Losartan 25 MG TAB PO SCH ×2 (08:48→22:15)
[2020-10-04] MEDS: Cyanocobalamin (Vitamin B-12) 1,000 MCG TAB PO SCH (08:48)
[2020-10-04] MEDS: Carvedilol 6.25 MG TAB PO SCH (08:48)
[2020-10-04] MEDS: Potassium Chloride 10 MEQ TAB PO SCH ×2 (08:49→22:15)
[2020-10-04] MEDS: Apixaban 5 MG TAB PO SCH ×2 (08:49→22:13)
[2020-10-04] MEDS: methylPREDNISolone Sod Succ 40 MG VIAL IVP SCH (12:27)
[2020-10-04] MEDS: Torsemide 20 MG TAB PO SCH (12:27)
[2020-10-04] MEDS: Diltiazem 125 MG in Sodium Chloride 0.9% 100 ML IVPB SCH (14:43)
[2020-10-04] MEDS: Carvedilol 25 MG TAB PO SCH (17:10)
[2020-10-04] MEDS: DULoxetine 30 MG CAP PO SCH (22:14)
[2020-10-04] MEDS: Montelukast Sodium 10 mg Tablet PO SCH (22:15)
[2020-10-04] MEDS: Pramipexole Di-HCl 0.25 MG TAB PO SCH (22:15)
[2020-10-04] MEDS: Folic Acid 1 MG TAB PO SCH (22:15)
[2020-10-04] MEDS: Doxycycline 100 MG CAP PO SCH (22:27)
[2020-10-05] MEDS: hydrALAZINE 20 MG/ML VIAL SLOW IVP PRN ×2 (06:31→12:30)
[2020-10-05] MEDS: Mometasone 100 MCG/Formoterol 5 MCG 120 PUFF INHALER INH SCH ×2 (07:03→18:42)
[2020-10-05] MEDS: DEXILANT 60 MG PO SCH (10:07)
[2020-10-05] MEDS: Losartan 25 MG TAB PO SCH ×2 (10:08→20:38)
[2020-10-05] MEDS: Doxycycline 100 MG CAP PO SCH ×2 (10:09→20:37)
[2020-10-05] MEDS: Hydrochlorothiazide 25 MG TAB PO SCH (10:09)
[2020-10-05] MEDS: Spironolactone 25 MG TAB PO SCH (10:09)
[2020-10-05] MEDS: predniSONE 20 MG TAB PO SCH (10:15)
[2020-10-05] MEDS: Potassium Chloride 10 MEQ TAB PO SCH ×2 (10:15→20:39)
[2020-10-05] MEDS: Saccharomyces boulardii 250 MG CAP PO SCH (10:15)
[2020-10-05] MEDS: Carvedilol 25 MG TAB PO SCH ×2 (10:15→16:49)
[2020-10-05] MEDS: Cyanocobalamin (Vitamin B-12) 1,000 MCG TAB PO SCH (10:15)
[2020-10-05] MEDS: Dronedarone HCl 400 MG TAB PO SCH ×2 (10:15→16:49)
[2020-10-05] MEDS: Apixaban 5 MG TAB PO SCH ×2 (10:15→20:37)
[2020-10-05] MEDS: Diltiazem 125 MG in Sodium Chloride 0.9% 100 ML IVPB SCH (10:20)
[2020-10-05] MEDS: Torsemide 20 MG TAB PO SCH (12:28)
[2020-10-05] MEDS: DULoxetine 30 MG CAP PO SCH (20:37)
[2020-10-05] MEDS: Folic Acid 1 MG TAB PO SCH (20:38)
[2020-10-05] MEDS: Pramipexole Di-HCl 0.25 MG TAB PO SCH (20:39)
[2020-10-05] MEDS: Montelukast Sodium 10 mg Tablet PO SCH (20:39)
[2020-10-05] MEDS: HYDROmorphone 2 MG TAB PO PRN (21:00)
[2020-10-06] MEDS: Mometasone 100 MCG/Formoterol 5 MCG 120 PUFF INHALER INH SCH ×2 (07:34→18:59)
[2020-10-06] MEDS: predniSONE 20 MG TAB PO SCH (08:35)
[2020-10-06] MEDS: DEXILANT 60 MG PO SCH (08:35)
[2020-10-06] MEDS: Hydrochlorothiazide 25 MG TAB PO SCH (08:38)
[2020-10-06] MEDS: Saccharomyces boulardii 250 MG CAP PO SCH (08:38)
[2020-10-06] MEDS: Doxycycline 100 MG CAP PO SCH ×2 (08:38→22:44)
[2020-10-06] MEDS: Losartan 25 MG TAB PO SCH ×2 (08:39→22:45)
[2020-10-06] MEDS: Carvedilol 25 MG TAB PO SCH ×2 (08:39→18:23)
[2020-10-06] MEDS: Cyanocobalamin (Vitamin B-12) 1,000 MCG TAB PO SCH (08:39)
[2020-10-06] MEDS: Spironolactone 25 MG TAB PO SCH (08:39)
[2020-10-06] MEDS: Apixaban 5 MG TAB PO SCH ×2 (08:40→22:44)
[2020-10-06] MEDS: Potassium Chloride 10 MEQ TAB PO SCH ×2 (08:40→22:46)
[2020-10-06] MEDS: Dronedarone HCl 400 MG TAB PO SCH ×2 (08:40→18:23)
[2020-10-06] MEDS: Torsemide 20 MG TAB PO SCH (12:00)
[2020-10-06 16:20] LABS: #Lymphocytes 0.8 thou/uL (1.20-3.40); #Monocytes 0.4 thou/uL (0.11-0.59); #Neutrophils 11.9 thou/uL (1.40-6.50); %Eosinophils 0.1 % (0.0-10.0); %Lymphocytes 6.1 % (21.0-51.0); %Monocytes 2.6 % (0.0-10.0); %Neutrophils 91.1 % (42.0-75.0); Hemoglobin 14.3 g/dL (12.0-16.0); Mean Corpuscular Hemoglobin 29.8 pg (27.0-31.0); Mean Corpuscular Volume 96.2 fL (78.0-98.0); Mean Platelet Volume 8.2 fL (7.4-10.4); Platelet Count 219 thou/uL (130-400); RBC Distribution Width 14.2 % (11.5-14.5); Red Blood Cell (RBC) Count 4.81 mill/uL (4.20-5.40); White Blood Cell (WBC) Count 13.1 thou/uL (4.8-10.8)
[2020-10-06 16:42] LABS: Anion Gap 20 mmol/L (10-20); BUN (Urea Nitrogen) 53 mg/dL (9.8-20.1); Calc. Creatinine Clearance 44 mL/min (70-130); Calcium 9.4 mg/dL (7.8-10.44); Carbon Dioxide 22 mmol/L (23-31); Chloride 99 mmol/L (98-107); Glucose 224 mg/dL (83-110); Potassium 3.7 mmol/L (3.5-5.1); Sodium 137 mmol/L (136-145)
[2020-10-06] MEDS: DULoxetine 30 MG CAP PO SCH (22:45)
[2020-10-06] MEDS: Folic Acid 1 MG TAB PO SCH (22:45)
[2020-10-06] MEDS: Montelukast Sodium 10 mg Tablet PO SCH (22:46)
[2020-10-06] MEDS: Pramipexole Di-HCl 0.25 MG TAB PO SCH (22:47)
[2020-10-07] MEDS: DEXILANT 60 MG PO SCH (07:19)
[2020-10-07] MEDS: Mometasone 100 MCG/Formoterol 5 MCG 120 PUFF INHALER INH SCH ×2 (07:33→19:24)
[2020-10-07 09:09] LABS: #Eosinphils 0.1 thou/uL (0.0-0.7); #Lymphocytes 2.1 thou/uL (1.20-3.40); #Monocytes 1.1 thou/uL (0.11-0.59); %Basophils 0.2 % (0.0-1.0); %Eosinophils 0.5 % (0.0-10.0); %Lymphocytes 15.6 % (21.0-51.0); %Monocytes 8.1 % (0.0-10.0); %Neutrophils 75.6 % (42.0-75.0); Mean Corpuscular HGB CONC 30.4 g/dL (32.0-36.0); Mean Corpuscular Hemoglobin 29.3 pg (27.0-31.0); Mean Corpuscular Volume 96.3 fL (78.0-98.0); Mean Platelet Volume 8.3 fL (7.4-10.4); Platelet Count 244 thou/uL (130-400); RBC Distribution Width 14.2 % (11.5-14.5); Red Blood Cell (RBC) Count 4.77 mill/uL (4.20-5.40); White Blood Cell (WBC) Count 13.2 thou/uL (4.8-10.8)
[2020-10-07] MEDS: Saccharomyces boulardii 250 MG CAP PO SCH (09:20)
[2020-10-07] MEDS: Losartan 25 MG TAB PO SCH ×2 (09:20→20:58)
[2020-10-07] MEDS: Potassium Chloride 10 MEQ TAB PO SCH ×2 (09:21→20:59)
[2020-10-07] MEDS: Cyanocobalamin (Vitamin B-12) 1,000 MCG TAB PO SCH (09:21)
[2020-10-07] MEDS: Flecainide 50 MG TAB PO SCH ×2 (09:21→20:58)
[2020-10-07] MEDS: Carvedilol 25 MG TAB PO SCH ×2 (09:21→17:33)
[2020-10-07] MEDS: Apixaban 5 MG TAB PO SCH ×2 (09:21→20:58)
[2020-10-07] MEDS: predniSONE 20 MG TAB PO SCH (09:21)
[2020-10-07] MEDS: Torsemide 20 MG TAB PO SCH (12:36)
[2020-10-07] MEDS: HYDROmorphone 2 MG TAB PO PRN (18:06)
[2020-10-07] MEDS: DULoxetine 30 MG CAP PO SCH (20:58)
[2020-10-07] MEDS: Folic Acid 1 MG TAB PO SCH (20:58)
[2020-10-07] MEDS: Pramipexole Di-HCl 0.25 MG TAB PO SCH (20:59)
[2020-10-07] MEDS: Montelukast Sodium 10 mg Tablet PO SCH (20:59)
[2020-10-08 05:24] LABS: Anion Gap 16 mmol/L (10-20); BUN (Urea Nitrogen) 57 mg/dL (9.8-20.1); Calc. Creatinine Clearance 43 mL/min (70-130); Calcium 8.3 mg/dL (7.8-10.44); Carbon Dioxide 24 mmol/L (23-31); Chloride 102 mmol/L (98-107); Glucose 107 mg/dL (83-110); Potassium 3.6 mmol/L (3.5-5.1); Sodium 138 mmol/L (136-145)
[2020-10-08] MEDS: Mometasone 100 MCG/Formoterol 5 MCG 120 PUFF INHALER INH SCH ×2 (06:53→18:50)
[2020-10-08] MEDS: DEXILANT 60 MG PO SCH (07:16)
[2020-10-08] MEDS: Saccharomyces boulardii 250 MG CAP PO SCH (09:14)
[2020-10-08] MEDS: Carvedilol 25 MG TAB PO SCH ×2 (09:15→18:23)
[2020-10-08] MEDS: Losartan 25 MG TAB PO SCH ×2 (09:15→21:35)
[2020-10-08] MEDS: Flecainide 50 MG TAB PO SCH (09:15)
[2020-10-08] MEDS: predniSONE 20 MG TAB PO SCH (09:15)
[2020-10-08] MEDS: Potassium Chloride 10 MEQ TAB PO SCH ×2 (09:15→21:36)
[2020-10-08] MEDS: Apixaban 5 MG TAB PO SCH ×2 (09:15→21:34)
[2020-10-08] MEDS: Cyanocobalamin (Vitamin B-12) 1,000 MCG TAB PO SCH (09:15)
[2020-10-08] MEDS: Torsemide 20 MG TAB PO SCH (12:45)
[2020-10-08] MEDS: Folic Acid 1 MG TAB PO SCH (21:35)
[2020-10-08] MEDS: DULoxetine 30 MG CAP PO SCH (21:35)
[2020-10-08] MEDS: Pramipexole Di-HCl 0.25 MG TAB PO SCH (21:36)
[2020-10-08] MEDS: Montelukast Sodium 10 mg Tablet PO SCH (21:36)
[2020-10-09] MEDS: DEXILANT 60 MG PO SCH (07:12)
[2020-10-09] MEDS: Mometasone 100 MCG/Formoterol 5 MCG 120 PUFF INHALER INH SCH ×2 (07:15→18:39)
[2020-10-09] MEDS: Losartan 25 MG TAB PO SCH (08:32)
[2020-10-09] MEDS: Carvedilol 25 MG TAB PO SCH ×2 (08:33→17:30)
[2020-10-09] MEDS: Cyanocobalamin (Vitamin B-12) 1,000 MCG TAB PO SCH (08:33)
[2020-10-09] MEDS: Saccharomyces boulardii 250 MG CAP PO SCH (08:33)
[2020-10-09] MEDS: predniSONE 20 MG TAB PO SCH (08:33)
[2020-10-09] MEDS: Potassium Chloride 10 MEQ TAB PO SCH (08:33)
[2020-10-09] MEDS: Apixaban 5 MG TAB PO SCH (08:33)
[2020-10-09] MEDS: Torsemide 20 MG TAB PO SCH (12:27)
[2020-10-09 16:35] VITALS: BP 144/71; TEMP 98.2
== END 2020-10-09 19:37 | DRG 202 ==
LOC: ERS 10:12 → 2SW 14:03 → OBSVTOIN 10-01 16:23
PROVIDERS: ADMIT Internal Medicine; ATTEND Internal Medicine
DX: J45.901 Unspecified asthma with (acute) exacerbation (principal); J44.1 Chronic obstructive pulmonary disease with (acute) exacerbation; J96.12 Chronic respiratory failure with hypercapnia; Z68.41 Body mass index [BMI] 40.0-44.9, adult; I13.0 Hypertensive heart and chronic kidney disease with heart failure and stage 1 through stage 4 chronic kidney disease, or unspecified chronic kidney disease; I50.32 Chronic diastolic (congestive) heart failure; N17.9 Acute kidney failure, unspecified; I48.0 Paroxysmal atrial fibrillation; Z66 Do not resuscitate; Z20.822 Contact with and (suspected) exposure to COVID-19; I25.10 Atherosclerotic heart disease of native coronary artery without angina pectoris; K21.9 Gastro-esophageal reflux disease without esophagitis; N18.30 Chronic kidney disease, stage 3 unspecified; D63.1 Anemia in chronic kidney disease; M35.3 Polymyalgia rheumatica; G89.4 Chronic pain syndrome; E66.9 Obesity, unspecified; G47.33 Obstructive sleep apnea (adult) (pediatric); F32.9 Major depressive disorder, single episode, unspecified; F41.9 Anxiety disorder, unspecified; I89.0 Lymphedema, not elsewhere classified; M54.9 Dorsalgia, unspecified; E78.5 Hyperlipidemia, unspecified; Z88.8 Allergy status to other drugs, medicaments and biological substances; Z88.0 Allergy status to penicillin; Z88.1 Allergy status to other antibiotic agents; Z88.2 Allergy status to sulfonamides; Z91.018 Allergy to other foods; Z91.048 Other nonmedicinal substance allergy status; Z79.899 Other long term (current) drug therapy; Z79.51 Long term (current) use of inhaled steroids; Z79.52 Long term (current) use of systemic steroids; Z86.73 Personal history of transient ischemic attack (TIA), and cerebral infarction without residual deficits; Z90.49 Acquired absence of other specified parts of digestive tract; Z98.1 Arthrodesis status; Z98.890 Other specified postprocedural states; I25.2 Old myocardial infarction; Z79.01 Long term (current) use of anticoagulants
CPT/HCPCS: 0240U; 36415; 70450; 71045; 80048; 80053; 80076; 81003; 81015; 82565; 83880; 84484; 85025; 93005; 93010; 93306; 94640; 94660; 94664; 96374; 96376; G0378; J0360; J1160; J2920; J3490; J7512; J7620

== ENCOUNTER 2020-11-18 15:51 | Inpatient (IN) | payer MEDICARE ==
[2020-11-18 16:30] LABS: #Eosinphils 0.1 thou/uL (0.0-0.7); #Lymphocytes 1.3 thou/uL (1.20-3.40); #Monocytes 0.8 thou/uL (0.11-0.59); #Neutrophils 6.4 thou/uL (1.40-6.50); %Basophils 0.2 % (0.0-1.0); %Eosinophils 1.6 % (0.0-10.0); %Monocytes 8.9 % (0.0-10.0); %Neutrophils 74.4 % (42.0-75.0); Hemoglobin 11.1 g/dL (12.0-16.0); Mean Corpuscular HGB CONC 33.1 g/dL (32.0-36.0); Mean Corpuscular Hemoglobin 32.7 pg (27.0-31.0); Mean Corpuscular Volume 98.6 fL (78.0-98.0); Mean Platelet Volume 7.8 fL (7.4-10.4); Platelet Count 177 thou/uL (130-400); RBC Distribution Width 15.6 % (11.5-14.5); Red Blood Cell (RBC) Count 3.41 mill/uL (4.20-5.40); White Blood Cell (WBC) Count 8.6 thou/uL (4.8-10.8)
[2020-11-18 16:44] LABS: Digoxin Less than 0.15 ng/mL (0.8-2.0)
[2020-11-18 16:46] LABS: ALT (SGPT) 14 U/L (8-55); AST (SGOT) 13 U/L (5-34); Albumin 3.4 g/dL (3.4-4.8); Alkaline Phosphatase 72 U/L (40-110); Anion Gap 14 mmol/L (10-20); BUN (Urea Nitrogen) 28 mg/dL (9.8-20.1); Bilirubin, Total 0.5 mg/dL (0.2-1.2); CK (CPK) 44 U/L (29-168); Calc. Creatinine Clearance 0 mL/min (70-130); Calcium 8.8 mg/dL (7.8-10.44); Carbon Dioxide 29 mmol/L (23-31); Chloride 103 mmol/L (98-107); Globulin 2.1 g/dL (2.4-3.5); Glucose 116 mg/dL (83-110); Lipase 13 U/L (8-78); Potassium 3.1 mmol/L (3.5-5.1); Protein, Total 5.5 g/dL (5.8-8.1); Sodium 143 mmol/L (136-145)
[2020-11-18] MEDS ORDERED: cefTRIAXone\\ROCEPHIN 1 GM VIAL ONE (18:02)
[2020-11-18] MEDS ORDERED: Vancomycin 1 GM/200 ML BAG ONE (18:02)
[2020-11-18] MEDS ORDERED: Potassium Chloride 20 MEQ TAB ONE (18:02)
[2020-11-18 19:07] LABS: Bacteria/HPF 1+ HPF (None Seen); Bilirubin Negative (Negative); Blood, Urine Negative (Negative); Clarity Clear (Clear); Glucose, Urine (Dipstick) Normal (Negative); Ketone, Urine Negative (Negative); Leukocyte 75 Leu/uL (Negative); Nitrite Negative (Negative); Protein, Urine (Dipstick) Negative (Neg-Trace); RBC/HPF 0-3 HPF (0-3); Specific Gravity, Urine 1.011 (1.002-1.036); Squamous Epithelial 0-3 HPF (0-3); Urobilinogen Normal mg/dL (Less than 2)
[2020-11-19 04:48] LABS: #Eosinphils 0.2 thou/uL (0.0-0.7); #Lymphocytes 1.9 thou/uL (1.20-3.40); #Monocytes 0.9 thou/uL (0.11-0.59); #Neutrophils 4.3 thou/uL (1.40-6.50); %Basophils 0.5 % (0.0-1.0); %Eosinophils 3.3 % (0.0-10.0); %Lymphocytes 26.1 % (21.0-51.0); %Monocytes 11.6 % (0.0-10.0); %Neutrophils 58.5 % (42.0-75.0); Hemoglobin 10.8 g/dL (12.0-16.0); Mean Corpuscular HGB CONC 33.4 g/dL (32.0-36.0); Mean Corpuscular Volume 98.6 fL (78.0-98.0); Mean Platelet Volume 8.3 fL (7.4-10.4); Platelet Count 158 thou/uL (130-400); RBC Distribution Width 15.7 % (11.5-14.5); Red Blood Cell (RBC) Count 3.28 mill/uL (4.20-5.40); White Blood Cell (WBC) Count 7.4 thou/uL (4.8-10.8)
[2020-11-19 05:11] LABS: Anion Gap 12 mmol/L (10-20); BUN (Urea Nitrogen) 24 mg/dL (9.8-20.1); Calc. Creatinine Clearance 85 mL/min (70-130); Calcium 8.9 mg/dL (7.8-10.44); Carbon Dioxide 29 mmol/L (23-31); Chloride 105 mmol/L (98-107); Glucose 120 mg/dL (83-110); Sodium 143 mmol/L (136-145)
[2020-11-19] MEDS: Furosemide 40 MG/4 ML VIAL SLOW IVP SCH ×2 (06:18→13:19)
[2020-11-19] MEDS: Mometasone 100 MCG/Formoterol 5 MCG 120 PUFF INHALER INH SCH ×2 (07:25→18:36)
[2020-11-19] MEDS: Losartan 25 MG TAB PO SCH ×2 (08:16→22:15)
[2020-11-19] MEDS: Carvedilol 25 MG TAB PO SCH ×2 (08:16→16:41)
[2020-11-19] MEDS: HYDROmorphone 2 MG TAB PO PRN (08:21)
[2020-11-19] MEDS ORDERED: Nitroglycerin 0.4 MG TAB (25 Tab Bottle) SL PRN (08:43)
[2020-11-19] MEDS ORDERED: Magnesium 2 GM/50 ML 2 GM in Premix Bag 1 BAG IVPB SCH (08:45)
[2020-11-19] MEDS ORDERED: Potassium Chloride 20 MEQ TAB PO SCH (08:45)
[2020-11-19] MEDS: Cyanocobalamin (Vitamin B-12) 1,000 MCG TAB PO SCH (09:50)
[2020-11-19] MEDS: Apixaban 5 MG TAB PO SCH ×2 (09:50→22:15)
[2020-11-19] MEDS: Potassium Chloride 10 MEQ TAB PO SCH ×2 (09:50→22:15)
[2020-11-19] MEDS: predniSONE 5 MG TAB PO SCH ×2 (09:51→22:15)
[2020-11-19] MEDS ORDERED: Ondansetron PF 4 MG/2 ML Vial IVP PRN (13:03)
[2020-11-19] MEDS ORDERED: TAPENTADOL HCL 200 MG PO SCH (14:00)
[2020-11-19] MEDS: TAPENTADOL HCL 200 MG PO SCH ×2 (14:12→23:13)
[2020-11-19] MEDS: cefTRIAXone\\ROCEPHIN 1 GM in Sodium Chloride 0.9% 100 ML IVPB SCH (18:05)
[2020-11-19] MEDS ORDERED: Pramipexole Di-HCl 0.25 MG TAB PO SCH (21:00)
[2020-11-19] MEDS: Pramipexole Di-HCl 0.25 MG TAB PO SCH (22:00)
[2020-11-19] MEDS: Saccharomyces boulardii 250 MG CAP PO SCH (22:14)
[2020-11-19] MEDS: Folic Acid 1 MG TAB PO SCH (22:15)
[2020-11-19] MEDS: Montelukast Sodium 10 mg Tablet PO SCH (22:15)
[2020-11-19] MEDS: DULoxetine 30 MG CAP PO SCH (22:15)
[2020-11-19] MEDS: Torsemide 20 MG TAB PO SCH (22:15)
[2020-11-19] MEDS: Melatonin 3 MG TAB PO SCH (22:24)
[2020-11-19] MEDS: Vitamin E 400 UNITS CAP PO SCH (22:25)
[2020-11-20 05:09] LABS: Anion Gap 12 mmol/L (10-20); BUN (Urea Nitrogen) 20 mg/dL (9.8-20.1); Calc. Creatinine Clearance 69 mL/min (70-130); Calcium 8.6 mg/dL (7.8-10.44); Carbon Dioxide 29 mmol/L (23-31); Chloride 103 mmol/L (98-107); Glucose 132 mg/dL (83-110); Potassium 3.4 mmol/L (3.5-5.1); Sodium 141 mmol/L (136-145)
[2020-11-20] MEDS: Furosemide 40 MG/4 ML VIAL SLOW IVP SCH ×2 (06:06→15:13)
[2020-11-20] MEDS: Mometasone 100 MCG/Formoterol 5 MCG 120 PUFF INHALER INH SCH ×2 (07:09→18:33)
[2020-11-20] MEDS: TAPENTADOL HCL 200 MG PO SCH ×2 (09:00→21:07)
[2020-11-20] MEDS: Cyanocobalamin (Vitamin B-12) 1,000 MCG TAB PO SCH (09:01)
[2020-11-20] MEDS: Losartan 25 MG TAB PO SCH ×2 (09:01→21:09)
[2020-11-20] MEDS: Potassium Chloride 10 MEQ TAB PO SCH ×2 (09:01→21:08)
[2020-11-20] MEDS: Zinc Sulfate 220 MG CAP PO SCH (09:01)
[2020-11-20] MEDS: Apixaban 5 MG TAB PO SCH ×2 (09:02→21:08)
[2020-11-20] MEDS: Torsemide 20 MG TAB PO SCH (09:02)
[2020-11-20] MEDS: predniSONE 5 MG TAB PO SCH ×2 (09:02→21:10)
[2020-11-20] MEDS: Cholecalciferol 1,000 UNITS (25 MCG) TAB PO SCH (09:02)
[2020-11-20] MEDS: Carvedilol 25 MG TAB PO SCH ×2 (09:02→16:38)
[2020-11-20] MEDS: Saccharomyces boulardii 250 MG CAP PO SCH ×2 (09:02→21:08)
[2020-11-20] MEDS: Nitroglycerin 0.2mg/Hour PATCH TD SCH (09:03)
[2020-11-20] MEDS: Fluticasone Propionate Nasal Spray 16 gm Bottle NASAL SCH (09:03)
[2020-11-20] MEDS ORDERED: Potassium Chloride 20 MEQ TAB PO SCH (10:15)
[2020-11-20] MEDS: Nystatin 500,000 UNITS/5 ML UDCUP SSW SCH ×2 (16:39→21:08)
[2020-11-20] MEDS: cefTRIAXone\\ROCEPHIN 1 GM in Sodium Chloride 0.9% 100 ML IVPB SCH (21:03)
[2020-11-20] MEDS: Melatonin 3 MG TAB PO SCH (21:08)
[2020-11-20] MEDS: Montelukast Sodium 10 mg Tablet PO SCH (21:08)
[2020-11-20] MEDS: Folic Acid 1 MG TAB PO SCH (21:09)
[2020-11-20] MEDS: DULoxetine 30 MG CAP PO SCH (21:10)
[2020-11-20] MEDS: Pramipexole Di-HCl 0.25 MG TAB PO SCH (21:10)
[2020-11-20] MEDS: Vitamin E 400 UNITS CAP PO SCH (21:11)
[2020-11-21 04:35] LABS: #Eosinphils 0.2 thou/uL (0.0-0.7); #Lymphocytes 1.4 thou/uL (1.20-3.40); #Monocytes 0.6 thou/uL (0.11-0.59); #Neutrophils 4.3 thou/uL (1.40-6.50); %Basophils 0.1 % (0.0-1.0); %Eosinophils 3.2 % (0.0-10.0); %Lymphocytes 22.1 % (21.0-51.0); %Monocytes 9.1 % (0.0-10.0); %Neutrophils 65.5 % (42.0-75.0); Hemoglobin 9.9 g/dL (12.0-16.0); Mean Corpuscular HGB CONC 33.3 g/dL (32.0-36.0); Mean Corpuscular Hemoglobin 33.2 pg (27.0-31.0); Mean Corpuscular Volume 99.8 fL (78.0-98.0); Mean Platelet Volume 7.9 fL (7.4-10.4); Platelet Count 154 thou/uL (130-400); RBC Distribution Width 15.8 % (11.5-14.5); Red Blood Cell (RBC) Count 2.97 mill/uL (4.20-5.40); White Blood Cell (WBC) Count 6.5 thou/uL (4.8-10.8)
[2020-11-21 05:03] LABS: Anion Gap 13 mmol/L (10-20); BUN (Urea Nitrogen) 23 mg/dL (9.8-20.1); Calc. Creatinine Clearance 70 mL/min (70-130); Carbon Dioxide 28 mmol/L (23-31); Chloride 104 mmol/L (98-107); Potassium 4.1 mmol/L (3.5-5.1); Sodium 141 mmol/L (136-145)
[2020-11-21 05:04] LABS: Calcium 8.6 mg/dL (7.8-10.44); Glucose 133 mg/dL (83-110)
[2020-11-21] MEDS: Furosemide 40 MG/4 ML VIAL SLOW IVP SCH ×2 (06:03→13:39)
[2020-11-21] MEDS: Mometasone 100 MCG/Formoterol 5 MCG 120 PUFF INHALER INH SCH ×2 (06:39→18:25)
[2020-11-21] MEDS: Nitroglycerin 0.2mg/Hour PATCH TD SCH (08:53)
[2020-11-21] MEDS: TAPENTADOL HCL 200 MG PO SCH ×2 (08:53→21:45)
[2020-11-21] MEDS: predniSONE 5 MG TAB PO SCH ×2 (08:54→20:49)
[2020-11-21] MEDS: Saccharomyces boulardii 250 MG CAP PO SCH ×2 (08:54→20:47)
[2020-11-21] MEDS: Nystatin 500,000 UNITS/5 ML UDCUP SSW SCH ×4 (08:54→20:47)
[2020-11-21] MEDS: Zinc Sulfate 220 MG CAP PO SCH (08:54)
[2020-11-21] MEDS: Losartan 25 MG TAB PO SCH ×2 (08:54→20:46)
[2020-11-21] MEDS: Cholecalciferol 1,000 UNITS (25 MCG) TAB PO SCH (08:54)
[2020-11-21] MEDS: Carvedilol 25 MG TAB PO SCH ×2 (08:55→17:45)
[2020-11-21] MEDS: Apixaban 5 MG TAB PO SCH ×2 (08:55→20:46)
[2020-11-21] MEDS: Potassium Chloride 10 MEQ TAB PO SCH ×2 (08:55→20:49)
[2020-11-21] MEDS: Fluticasone Propionate Nasal Spray 16 gm Bottle NASAL SCH (08:55)
[2020-11-21] MEDS: Cyanocobalamin (Vitamin B-12) 1,000 MCG TAB PO SCH (08:55)
[2020-11-21] MEDS ORDERED: Furosemide 40 MG/4 ML VIAL SLOW IVP SCH (12:00)
[2020-11-21] MEDS: cefTRIAXone\\ROCEPHIN 1 GM in Sodium Chloride 0.9% 100 ML IVPB SCH (18:31)
[2020-11-21] MEDS: Pramipexole Di-HCl 0.25 MG TAB PO SCH (20:47)
[2020-11-21] MEDS: Melatonin 3 MG TAB PO SCH (20:48)
[2020-11-21] MEDS: Folic Acid 1 MG TAB PO SCH (20:48)
[2020-11-21] MEDS: Montelukast Sodium 10 mg Tablet PO SCH (20:48)
[2020-11-21] MEDS: DULoxetine 30 MG CAP PO SCH (20:49)
[2020-11-21] MEDS: Vitamin E 400 UNITS CAP PO SCH (20:51)
[2020-11-22 05:31] LABS: Anion Gap 9 mmol/L (10-20); BUN (Urea Nitrogen) 22 mg/dL (9.8-20.1); Calc. Creatinine Clearance 76 mL/min (70-130); Calcium 8.8 mg/dL (7.8-10.44); Carbon Dioxide 33 mmol/L (23-31); Chloride 103 mmol/L (98-107); Glucose 118 mg/dL (83-110); Sodium 141 mmol/L (136-145)
[2020-11-22] MEDS: Furosemide 40 MG/4 ML VIAL SLOW IVP SCH ×2 (06:11→14:48)
[2020-11-22] MEDS: Mometasone 100 MCG/Formoterol 5 MCG 120 PUFF INHALER INH SCH ×2 (06:58→19:08)
[2020-11-22] MEDS: Zinc Sulfate 220 MG CAP PO SCH (08:39)
[2020-11-22] MEDS: Saccharomyces boulardii 250 MG CAP PO SCH ×2 (08:40→21:40)
[2020-11-22] MEDS: Potassium Chloride 10 MEQ TAB PO SCH ×2 (08:40→21:41)
[2020-11-22] MEDS: Carvedilol 25 MG TAB PO SCH ×2 (08:40→17:11)
[2020-11-22] MEDS: Losartan 25 MG TAB PO SCH ×2 (08:40→21:43)
[2020-11-22] MEDS: Nystatin 500,000 UNITS/5 ML UDCUP SSW SCH ×4 (08:40→21:40)
[2020-11-22] MEDS: Cyanocobalamin (Vitamin B-12) 1,000 MCG TAB PO SCH (08:40)
[2020-11-22] MEDS: Apixaban 5 MG TAB PO SCH ×2 (08:41→21:43)
[2020-11-22] MEDS: Cholecalciferol 1,000 UNITS (25 MCG) TAB PO SCH (08:41)
[2020-11-22] MEDS: Nitroglycerin 0.2mg/Hour PATCH TD SCH (08:41)
[2020-11-22] MEDS: predniSONE 5 MG TAB PO SCH ×2 (08:42→21:43)
[2020-11-22] MEDS: TAPENTADOL HCL 200 MG PO SCH ×2 (09:59→21:40)
[2020-11-22] MEDS: Fluticasone Propionate Nasal Spray 16 gm Bottle NASAL SCH (10:40)
[2020-11-22] MEDS: cefTRIAXone\\ROCEPHIN 1 GM in Sodium Chloride 0.9% 100 ML IVPB SCH (17:46)
[2020-11-22] MEDS: DULoxetine 30 MG CAP PO SCH (21:41)
[2020-11-22] MEDS: Pramipexole Di-HCl 0.25 MG TAB PO SCH (21:41)
[2020-11-22] MEDS: Vitamin E 400 UNITS CAP PO SCH (21:41)
[2020-11-22] MEDS: Montelukast Sodium 10 mg Tablet PO SCH (21:43)
[2020-11-22] MEDS: Melatonin 3 MG TAB PO SCH (21:43)
[2020-11-22] MEDS: Folic Acid 1 MG TAB PO SCH (21:43)
[2020-11-23 04:48] LABS: Anion Gap 13 mmol/L (10-20); BUN (Urea Nitrogen) 23 mg/dL (9.8-20.1); Calc. Creatinine Clearance 77 mL/min (70-130); Calcium 9.1 mg/dL (7.8-10.44); Carbon Dioxide 30 mmol/L (23-31); Chloride 101 mmol/L (98-107); Glucose 142 mg/dL (83-110); Potassium 3.5 mmol/L (3.5-5.1); Sodium 140 mmol/L (136-145)
[2020-11-23 05:00] LABS: Hemoglobin 10.1 g/dL (12.0-16.0); Platelet Count 171 thou/uL (130-400)
[2020-11-23] MEDS: Furosemide 40 MG/4 ML VIAL SLOW IVP SCH ×3 (06:19→17:18)
[2020-11-23] MEDS: Mometasone 100 MCG/Formoterol 5 MCG 120 PUFF INHALER INH SCH ×2 (07:12→18:42)
[2020-11-23] MEDS: TAPENTADOL HCL 200 MG PO SCH ×3 (07:30→21:53)
[2020-11-23] MEDS ORDERED: Potassium Chloride 20 MEQ TAB PO SCH (08:45)
[2020-11-23] MEDS: Carvedilol 25 MG TAB PO SCH ×2 (09:13→17:17)
[2020-11-23] MEDS: Potassium Chloride 10 MEQ TAB PO SCH ×2 (09:13→21:55)
[2020-11-23] MEDS: Losartan 25 MG TAB PO SCH ×2 (09:13→21:56)
[2020-11-23] MEDS: Cyanocobalamin (Vitamin B-12) 1,000 MCG TAB PO SCH (09:14)
[2020-11-23] MEDS: predniSONE 5 MG TAB PO SCH ×2 (09:14→21:54)
[2020-11-23] MEDS: Nystatin 500,000 UNITS/5 ML UDCUP SSW SCH ×4 (09:14→21:55)
[2020-11-23] MEDS: Apixaban 5 MG TAB PO SCH ×2 (09:14→21:55)
[2020-11-23] MEDS: Zinc Sulfate 220 MG CAP PO SCH (09:14)
[2020-11-23] MEDS: Cholecalciferol 1,000 UNITS (25 MCG) TAB PO SCH (09:14)
[2020-11-23] MEDS: Fluticasone Propionate Nasal Spray 16 gm Bottle NASAL SCH (09:16)
[2020-11-23] MEDS: Saccharomyces boulardii 250 MG CAP PO SCH ×2 (09:19→21:54)
[2020-11-23] MEDS: Nitroglycerin 0.2mg/Hour PATCH TD SCH (09:30)
[2020-11-23 16:48] LABS: Anion Gap 13 mmol/L (10-20); BUN (Urea Nitrogen) 21 mg/dL (9.8-20.1); Calc. Creatinine Clearance 74 mL/min (70-130); Calcium 9.4 mg/dL (7.8-10.44); Carbon Dioxide 31 mmol/L (23-31); Chloride 100 mmol/L (98-107); Glucose 154 mg/dL (83-110); Potassium 4.2 mmol/L (3.5-5.1); Sodium 140 mmol/L (136-145)
[2020-11-23] MEDS: cefTRIAXone\\ROCEPHIN 1 GM in Sodium Chloride 0.9% 100 ML IVPB SCH (17:43)
[2020-11-23] MEDS: Melatonin 3 MG TAB PO SCH (21:53)
[2020-11-23] MEDS: Montelukast Sodium 10 mg Tablet PO SCH (21:53)
[2020-11-23] MEDS: Pramipexole Di-HCl 0.25 MG TAB PO SCH (21:54)
[2020-11-23] MEDS: DULoxetine 30 MG CAP PO SCH (21:55)
[2020-11-23] MEDS: Folic Acid 1 MG TAB PO SCH (21:55)
[2020-11-23] MEDS: Vitamin E 400 UNITS CAP PO SCH (22:05)
[2020-11-24] MEDS: Furosemide 40 MG/4 ML VIAL SLOW IVP SCH ×3 (01:22→17:10)
[2020-11-24 05:20] LABS: Anion Gap 16 mmol/L (10-20); BUN (Urea Nitrogen) 20 mg/dL (9.8-20.1); Calc. Creatinine Clearance 84 mL/min (70-130); Carbon Dioxide 27 mmol/L (23-31); Chloride 99 mmol/L (98-107); Glucose 127 mg/dL (83-110); Potassium 3.4 mmol/L (3.5-5.1); Sodium 139 mmol/L (136-145)
[2020-11-24] MEDS: DEXLANSOPRAZOLE PO SCH (07:14)
[2020-11-24] MEDS: Mometasone 100 MCG/Formoterol 5 MCG 120 PUFF INHALER INH SCH ×2 (07:45→18:13)
[2020-11-24] MEDS: Saccharomyces boulardii 250 MG CAP PO SCH ×2 (09:19→22:05)
[2020-11-24] MEDS: Nitroglycerin 0.2mg/Hour PATCH TD SCH (09:19)
[2020-11-24] MEDS: Nystatin 500,000 UNITS/5 ML UDCUP SSW SCH ×4 (09:19→22:04)
[2020-11-24] MEDS: Losartan 25 MG TAB PO SCH ×2 (09:20→22:05)
[2020-11-24] MEDS: predniSONE 5 MG TAB PO SCH ×2 (09:20→22:05)
[2020-11-24] MEDS: Potassium Chloride 10 MEQ TAB PO SCH ×2 (09:20→22:04)
[2020-11-24] MEDS: Carvedilol 25 MG TAB PO SCH ×2 (09:20→17:00)
[2020-11-24] MEDS: Apixaban 5 MG TAB PO SCH ×2 (09:20→22:05)
[2020-11-24] MEDS: Zinc Sulfate 220 MG CAP PO SCH (09:21)
[2020-11-24] MEDS: Cholecalciferol 1,000 UNITS (25 MCG) TAB PO SCH (09:21)
[2020-11-24] MEDS: Cyanocobalamin (Vitamin B-12) 1,000 MCG TAB PO SCH (09:21)
[2020-11-24] MEDS: TAPENTADOL HCL 200 MG PO SCH ×2 (09:48→22:04)
[2020-11-24] MEDS: Fluticasone Propionate Nasal Spray 16 gm Bottle NASAL SCH (09:50)
[2020-11-24] MEDS: cefTRIAXone\\ROCEPHIN 1 GM in Sodium Chloride 0.9% 100 ML IVPB SCH (17:01)
[2020-11-24] MEDS: Vitamin E 400 UNITS CAP PO SCH (22:04)
[2020-11-24] MEDS: DULoxetine 30 MG CAP PO SCH (22:05)
[2020-11-24] MEDS: Melatonin 3 MG TAB PO SCH (22:06)
[2020-11-24] MEDS: Folic Acid 1 MG TAB PO SCH (22:06)
[2020-11-24] MEDS: Montelukast Sodium 10 mg Tablet PO SCH (22:06)
[2020-11-24] MEDS: Pramipexole Di-HCl 0.25 MG TAB PO SCH (22:07)
[2020-11-25] MEDS: Furosemide 40 MG/4 ML VIAL SLOW IVP SCH ×2 (01:13→10:04)
[2020-11-25 05:11] LABS: Anion Gap 14 mmol/L (10-20); BUN (Urea Nitrogen) 19 mg/dL (9.8-20.1); Calc. Creatinine Clearance 74 mL/min (70-130); Calcium 8.9 mg/dL (7.8-10.44); Carbon Dioxide 33 mmol/L (23-31); Chloride 98 mmol/L (98-107); Glucose 133 mg/dL (83-110); Potassium 3.1 mmol/L (3.5-5.1); Sodium 142 mmol/L (136-145)
[2020-11-25 05:52] LABS: Hemoglobin 10.9 g/dL (12.0-16.0); Platelet Count 168 thou/uL (130-400)
[2020-11-25] MEDS: DEXLANSOPRAZOLE PO SCH (07:15)
[2020-11-25] MEDS: Fluticasone Propionate Nasal Spray 16 gm Bottle NASAL SCH (07:15)
[2020-11-25] MEDS: Mometasone 100 MCG/Formoterol 5 MCG 120 PUFF INHALER INH SCH ×2 (07:30→18:51)
[2020-11-25] MEDS ORDERED: Potassium Chloride 20 MEQ TAB PO SCH (09:48)
[2020-11-25] MEDS ORDERED: Magnesium 2 GM/50 ML 2 GM in Premix Bag 1 BAG IVPB SCH (10:00)
[2020-11-25] MEDS: Losartan 25 MG TAB PO SCH ×2 (10:04→21:23)
[2020-11-25] MEDS: Cholecalciferol 1,000 UNITS (25 MCG) TAB PO SCH (10:04)
[2020-11-25] MEDS: Nystatin 500,000 UNITS/5 ML UDCUP SSW SCH ×4 (10:04→21:24)
[2020-11-25] MEDS: Cyanocobalamin (Vitamin B-12) 1,000 MCG TAB PO SCH (10:04)
[2020-11-25] MEDS: Saccharomyces boulardii 250 MG CAP PO SCH ×2 (10:05→21:23)
[2020-11-25] MEDS: Potassium Chloride 10 MEQ TAB PO SCH ×2 (10:05→21:23)
[2020-11-25] MEDS: Carvedilol 25 MG TAB PO SCH ×2 (10:05→17:13)
[2020-11-25] MEDS: Nitroglycerin 0.2mg/Hour PATCH TD SCH (10:05)
[2020-11-25] MEDS: TAPENTADOL HCL 200 MG PO SCH ×2 (10:05→21:24)
[2020-11-25] MEDS: Apixaban 5 MG TAB PO SCH ×2 (10:06→21:23)
[2020-11-25] MEDS: Zinc Sulfate 220 MG CAP PO SCH (10:06)
[2020-11-25] MEDS: predniSONE 5 MG TAB PO SCH ×2 (10:06→21:24)
[2020-11-25 17:09] LABS: #Eosinphils 0.1 thou/uL (0.0-0.7); #Lymphocytes 1.4 thou/uL (1.20-3.40); #Monocytes 0.7 thou/uL (0.11-0.59); #Neutrophils 5.2 thou/uL (1.40-6.50); %Basophils 0.2 % (0.0-1.0); %Eosinophils 1.9 % (0.0-10.0); %Lymphocytes 18.2 % (21.0-51.0); %Monocytes 9.3 % (0.0-10.0); %Neutrophils 70.4 % (42.0-75.0); Hemoglobin 11.3 g/dL (12.0-16.0); Mean Corpuscular Hemoglobin 33.5 pg (27.0-31.0); Mean Corpuscular Volume 98.5 fL (78.0-98.0); Platelet Count 164 thou/uL (130-400); RBC Distribution Width 15.1 % (11.5-14.5); Red Blood Cell (RBC) Count 3.36 mill/uL (4.20-5.40); White Blood Cell (WBC) Count 7.4 thou/uL (4.8-10.8)
[2020-11-25] MEDS: Furosemide 100 MG/10 ML VIAL SLOW IVP SCH (17:14)
[2020-11-25] MEDS: Doxycycline 100 MG CAP PO SCH (21:22)
[2020-11-25] MEDS: DULoxetine 30 MG CAP PO SCH (21:23)
[2020-11-25] MEDS: Montelukast Sodium 10 mg Tablet PO SCH (21:24)
[2020-11-25] MEDS: Folic Acid 1 MG TAB PO SCH (21:24)
[2020-11-25] MEDS: Melatonin 3 MG TAB PO SCH (21:24)
[2020-11-25] MEDS: Vitamin E 400 UNITS CAP PO SCH (21:24)
[2020-11-25] MEDS: Pramipexole Di-HCl 0.25 MG TAB PO SCH (21:25)
[2020-11-26] MEDS: Furosemide 100 MG/10 ML VIAL SLOW IVP SCH ×3 (00:34→17:00)
[2020-11-26 04:58] LABS: Anion Gap 14 mmol/L (10-20); BUN (Urea Nitrogen) 18 mg/dL (9.8-20.1); Calc. Creatinine Clearance 72 mL/min (70-130); Calcium 8.8 mg/dL (7.8-10.44); Carbon Dioxide 32 mmol/L (23-31); Chloride 97 mmol/L (98-107); Glucose 156 mg/dL (83-110); Potassium 3.4 mmol/L (3.5-5.1); Sodium 140 mmol/L (136-145)
[2020-11-26] MEDS: Mometasone 100 MCG/Formoterol 5 MCG 120 PUFF INHALER INH SCH ×2 (07:12→18:56)
[2020-11-26] MEDS ORDERED: Potassium Chloride 20 MEQ TAB PO SCH (09:15)
[2020-11-26] MEDS: Doxycycline 100 MG CAP PO SCH ×2 (09:35→21:51)
[2020-11-26] MEDS: Apixaban 5 MG TAB PO SCH ×2 (09:36→21:51)
[2020-11-26] MEDS: Cholecalciferol 1,000 UNITS (25 MCG) TAB PO SCH (09:36)
[2020-11-26] MEDS: Zinc Sulfate 220 MG CAP PO SCH (09:36)
[2020-11-26] MEDS: Losartan 25 MG TAB PO SCH ×2 (09:36→21:51)
[2020-11-26] MEDS: Carvedilol 25 MG TAB PO SCH ×2 (09:36→17:01)
[2020-11-26] MEDS: Cyanocobalamin (Vitamin B-12) 1,000 MCG TAB PO SCH (09:36)
[2020-11-26] MEDS: predniSONE 5 MG TAB PO SCH ×2 (09:36→21:53)
[2020-11-26] MEDS: Nitroglycerin 0.2mg/Hour PATCH TD SCH (09:37)
[2020-11-26] MEDS: TAPENTADOL HCL 200 MG PO SCH ×2 (09:37→21:52)
[2020-11-26] MEDS: Nystatin 500,000 UNITS/5 ML UDCUP SSW SCH ×4 (09:37→21:52)
[2020-11-26] MEDS: Saccharomyces boulardii 250 MG CAP PO SCH ×2 (09:37→21:54)
[2020-11-26] MEDS: Potassium Chloride 10 MEQ TAB PO SCH ×2 (09:37→21:53)
[2020-11-26] MEDS: Fluticasone Propionate Nasal Spray 16 gm Bottle NASAL SCH (09:51)
[2020-11-26] MEDS: DEXLANSOPRAZOLE PO SCH (09:51)
[2020-11-26 10:37] VITALS: BMI 42.9
[2020-11-26] MEDS: DULoxetine 30 MG CAP PO SCH (21:51)
[2020-11-26] MEDS: Folic Acid 1 MG TAB PO SCH (21:51)
[2020-11-26] MEDS: Montelukast Sodium 10 mg Tablet PO SCH (21:52)
[2020-11-26] MEDS: Melatonin 3 MG TAB PO SCH (21:52)
[2020-11-26] MEDS: Pramipexole Di-HCl 0.25 MG TAB PO SCH (21:53)
[2020-11-26] MEDS: Vitamin E 400 UNITS CAP PO SCH (21:54)
[2020-11-26] MEDS: HYDROmorphone 2 MG TAB PO PRN (23:59)
[2020-11-27 05:20] LABS: Hemoglobin 10.4 g/dL (12.0-16.0); Platelet Count 182 thou/uL (130-400)
[2020-11-27 05:41] LABS: Anion Gap 16 mmol/L (10-20); BUN (Urea Nitrogen) 19 mg/dL (9.8-20.1); Calc. Creatinine Clearance 74 mL/min (70-130); Calcium 8.9 mg/dL (7.8-10.44); Carbon Dioxide 33 mmol/L (23-31); Chloride 97 mmol/L (98-107); Glucose 140 mg/dL (83-110); Potassium 3.4 mmol/L (3.5-5.1); Sodium 143 mmol/L (136-145)
[2020-11-27] MEDS: DEXLANSOPRAZOLE PO SCH (07:09)
[2020-11-27] MEDS: Fluticasone Propionate Nasal Spray 16 gm Bottle NASAL SCH (07:10)
[2020-11-27] MEDS: Mometasone 100 MCG/Formoterol 5 MCG 120 PUFF INHALER INH SCH ×2 (07:17→19:23)
[2020-11-27] MEDS ORDERED: Potassium Chloride 20 MEQ TAB PO SCH (08:45)
[2020-11-27] MEDS: Saccharomyces boulardii 250 MG CAP PO SCH ×2 (09:43→20:47)
[2020-11-27] MEDS: Nystatin 500,000 UNITS/5 ML UDCUP SSW SCH ×4 (09:43→20:47)
[2020-11-27] MEDS: Doxycycline 100 MG CAP PO SCH ×2 (09:43→20:47)
[2020-11-27] MEDS: Cholecalciferol 1,000 UNITS (25 MCG) TAB PO SCH (09:44)
[2020-11-27] MEDS: Cyanocobalamin (Vitamin B-12) 1,000 MCG TAB PO SCH (09:44)
[2020-11-27] MEDS: Zinc Sulfate 220 MG CAP PO SCH (09:44)
[2020-11-27] MEDS: Losartan 25 MG TAB PO SCH ×2 (09:44→20:48)
[2020-11-27] MEDS: Potassium Chloride 10 MEQ TAB PO SCH ×2 (09:44→20:47)
[2020-11-27] MEDS: Apixaban 5 MG TAB PO SCH ×2 (09:45→20:47)
[2020-11-27] MEDS: TAPENTADOL HCL 200 MG PO SCH ×2 (09:45→20:47)
[2020-11-27] MEDS: Furosemide 100 MG/10 ML VIAL SLOW IVP SCH ×4 (09:45→20:46)
[2020-11-27] MEDS: Carvedilol 25 MG TAB PO SCH ×2 (09:45→16:00)
[2020-11-27] MEDS: predniSONE 5 MG TAB PO SCH ×2 (09:45→20:47)
[2020-11-27] MEDS: Nitroglycerin 0.2mg/Hour PATCH TD SCH (09:46)
[2020-11-27] MEDS: HYDROmorphone 2 MG TAB PO PRN (15:53)
[2020-11-27] MEDS: Vitamin E 400 UNITS CAP PO SCH (20:47)
[2020-11-27] MEDS: Pramipexole Di-HCl 0.25 MG TAB PO SCH (20:47)
[2020-11-27] MEDS: Folic Acid 1 MG TAB PO SCH (20:47)
[2020-11-27] MEDS: Montelukast Sodium 10 mg Tablet PO SCH (20:47)
[2020-11-27] MEDS: Melatonin 3 MG TAB PO SCH (20:47)
[2020-11-27] MEDS: DULoxetine 30 MG CAP PO SCH (20:48)
[2020-11-28] MEDS: Furosemide 100 MG/10 ML VIAL SLOW IVP SCH ×3 (05:55→21:33)
[2020-11-28 06:28] LABS: Anion Gap 13 mmol/L (10-20); BUN (Urea Nitrogen) 21 mg/dL (9.8-20.1); Calc. Creatinine Clearance 77 mL/min (70-130); Carbon Dioxide 36 mmol/L (23-31); Chloride 98 mmol/L (98-107); Glucose 143 mg/dL (83-110); Potassium 3.6 mmol/L (3.5-5.1); Sodium 143 mmol/L (136-145)
[2020-11-28] MEDS: Mometasone 100 MCG/Formoterol 5 MCG 120 PUFF INHALER INH SCH ×2 (06:59→19:34)
[2020-11-28] MEDS: DEXLANSOPRAZOLE PO SCH (07:17)
[2020-11-28] MEDS: Fluticasone Propionate Nasal Spray 16 gm Bottle NASAL SCH (07:17)
[2020-11-28] MEDS: Losartan 25 MG TAB PO SCH ×2 (08:50→21:34)
[2020-11-28] MEDS: Zinc Sulfate 220 MG CAP PO SCH (08:50)
[2020-11-28] MEDS: Apixaban 5 MG TAB PO SCH ×2 (08:50→21:35)
[2020-11-28] MEDS: Nitroglycerin 0.2mg/Hour PATCH TD SCH (08:51)
[2020-11-28] MEDS: TAPENTADOL HCL 200 MG PO SCH ×2 (08:51→21:33)
[2020-11-28] MEDS: Cyanocobalamin (Vitamin B-12) 1,000 MCG TAB PO SCH (08:51)
[2020-11-28] MEDS: predniSONE 5 MG TAB PO SCH ×2 (08:51→21:34)
[2020-11-28] MEDS: Nystatin 500,000 UNITS/5 ML UDCUP SSW SCH ×4 (08:51→21:35)
[2020-11-28] MEDS: Cholecalciferol 1,000 UNITS (25 MCG) TAB PO SCH (08:51)
[2020-11-28] MEDS: Doxycycline 100 MG CAP PO SCH ×2 (08:51→21:35)
[2020-11-28] MEDS: Carvedilol 25 MG TAB PO SCH ×2 (08:51→16:48)
[2020-11-28] MEDS: Potassium Chloride 10 MEQ TAB PO SCH ×2 (08:53→21:35)
[2020-11-28] MEDS: Saccharomyces boulardii 250 MG CAP PO SCH ×2 (12:12→21:33)
[2020-11-28] MEDS: Pramipexole Di-HCl 0.25 MG TAB PO SCH (21:34)
[2020-11-28] MEDS: DULoxetine 30 MG CAP PO SCH (21:34)
[2020-11-28] MEDS: Melatonin 3 MG TAB PO SCH (21:35)
[2020-11-28] MEDS: Montelukast Sodium 10 mg Tablet PO SCH (21:35)
[2020-11-28] MEDS: Folic Acid 1 MG TAB PO SCH (21:35)
[2020-11-28] MEDS: Vitamin E 400 UNITS CAP PO SCH (22:56)
[2020-11-29 05:50] LABS: Hemoglobin 10.6 g/dL (12.0-16.0); Platelet Count 162 thou/uL (130-400)
[2020-11-29 06:05] LABS: Anion Gap 15 mmol/L (10-20); BUN (Urea Nitrogen) 18 mg/dL (9.8-20.1); Calc. Creatinine Clearance 84 mL/min (70-130); Calcium 9.1 mg/dL (7.8-10.44); Carbon Dioxide 34 mmol/L (23-31); Chloride 98 mmol/L (98-107); Glucose 142 mg/dL (83-110); Potassium 3.4 mmol/L (3.5-5.1); Sodium 144 mmol/L (136-145)
[2020-11-29] MEDS: Furosemide 100 MG/10 ML VIAL SLOW IVP SCH ×3 (06:20→21:34)
[2020-11-29] MEDS: Mometasone 100 MCG/Formoterol 5 MCG 120 PUFF INHALER INH SCH ×2 (07:20→18:52)
[2020-11-29] MEDS: Carvedilol 25 MG TAB PO SCH ×2 (08:19→17:38)
[2020-11-29] MEDS: Cyanocobalamin (Vitamin B-12) 1,000 MCG TAB PO SCH (08:20)
[2020-11-29] MEDS: Cholecalciferol 1,000 UNITS (25 MCG) TAB PO SCH (08:20)
[2020-11-29] MEDS: Apixaban 5 MG TAB PO SCH ×2 (08:20→21:35)
[2020-11-29] MEDS: Doxycycline 100 MG CAP PO SCH ×2 (08:21→21:36)
[2020-11-29] MEDS: DEXLANSOPRAZOLE PO SCH (08:21)
[2020-11-29] MEDS: Fluticasone Propionate Nasal Spray 16 gm Bottle NASAL SCH (08:22)
[2020-11-29] MEDS: predniSONE 5 MG TAB PO SCH ×2 (08:22→21:35)
[2020-11-29] MEDS: Nystatin 500,000 UNITS/5 ML UDCUP SSW SCH ×4 (08:22→21:34)
[2020-11-29] MEDS: Potassium Chloride 10 MEQ TAB PO SCH ×2 (08:22→21:35)
[2020-11-29] MEDS: Losartan 25 MG TAB PO SCH ×2 (08:22→21:35)
[2020-11-29] MEDS: Zinc Sulfate 220 MG CAP PO SCH (08:23)
[2020-11-29] MEDS: Saccharomyces boulardii 250 MG CAP PO SCH ×2 (08:23→21:34)
[2020-11-29] MEDS: TAPENTADOL HCL 200 MG PO SCH ×2 (08:25→21:34)
[2020-11-29] MEDS: Nitroglycerin 0.2mg/Hour PATCH TD SCH (09:22)
[2020-11-29] MEDS ORDERED: HYDROmorphone 2 MG TAB PO PRN ×2 (11:24→12:14)
[2020-11-29] MEDS: Montelukast Sodium 10 mg Tablet PO SCH (21:35)
[2020-11-29] MEDS: DULoxetine 30 MG CAP PO SCH (21:35)
[2020-11-29] MEDS: Folic Acid 1 MG TAB PO SCH (21:35)
[2020-11-29] MEDS: Melatonin 3 MG TAB PO SCH (21:35)
[2020-11-29] MEDS: Pramipexole Di-HCl 0.25 MG TAB PO SCH (21:35)
[2020-11-29] MEDS: Vitamin E 400 UNITS CAP PO SCH (21:35)
[2020-11-30 05:06] LABS: Anion Gap 16 mmol/L (10-20); BUN (Urea Nitrogen) 19 mg/dL (9.8-20.1); Calc. Creatinine Clearance 77 mL/min (70-130); Calcium 9.4 mg/dL (7.8-10.44); Carbon Dioxide 32 mmol/L (23-31); Chloride 97 mmol/L (98-107); Glucose 157 mg/dL (83-110); Potassium 3.4 mmol/L (3.5-5.1); Sodium 142 mmol/L (136-145)
[2020-11-30] MEDS: Furosemide 100 MG/10 ML VIAL SLOW IVP SCH ×3 (05:50→20:59)
[2020-11-30] MEDS: Fluticasone Propionate Nasal Spray 16 gm Bottle NASAL SCH (07:00)
[2020-11-30] MEDS: DEXLANSOPRAZOLE PO SCH (07:00)
[2020-11-30] MEDS: Mometasone 100 MCG/Formoterol 5 MCG 120 PUFF INHALER INH SCH ×2 (07:22→18:40)
[2020-11-30] MEDS: TAPENTADOL HCL 200 MG PO SCH ×2 (08:41→20:59)
[2020-11-30] MEDS: Saccharomyces boulardii 250 MG CAP PO SCH ×2 (08:41→20:59)
[2020-11-30] MEDS: Nystatin 500,000 UNITS/5 ML UDCUP SSW SCH ×4 (08:41→21:02)
[2020-11-30] MEDS: Zinc Sulfate 220 MG CAP PO SCH (08:41)
[2020-11-30] MEDS: predniSONE 5 MG TAB PO SCH ×2 (08:42→21:00)
[2020-11-30] MEDS: Nitroglycerin 0.2mg/Hour PATCH TD SCH (08:42)
[2020-11-30] MEDS: Apixaban 5 MG TAB PO SCH ×2 (08:42→21:00)
[2020-11-30] MEDS: Potassium Chloride 10 MEQ TAB PO SCH ×2 (08:42→21:00)
[2020-11-30] MEDS: Cyanocobalamin (Vitamin B-12) 1,000 MCG TAB PO SCH (08:42)
[2020-11-30] MEDS: Doxycycline 100 MG CAP PO SCH ×2 (08:42→21:00)
[2020-11-30] MEDS: Losartan 25 MG TAB PO SCH ×2 (08:42→21:01)
[2020-11-30] MEDS: Carvedilol 25 MG TAB PO SCH ×2 (08:42→16:50)
[2020-11-30] MEDS: Cholecalciferol 1,000 UNITS (25 MCG) TAB PO SCH (08:44)
[2020-11-30] MEDS ORDERED: Potassium Chloride 20 MEQ TAB PO SCH (12:30)
[2020-11-30] MEDS: Melatonin 3 MG TAB PO SCH (21:00)
[2020-11-30] MEDS: DULoxetine 30 MG CAP PO SCH (21:00)
[2020-11-30] MEDS: Montelukast Sodium 10 mg Tablet PO SCH (21:00)
[2020-11-30] MEDS: Pramipexole Di-HCl 0.25 MG TAB PO SCH (21:00)
[2020-11-30] MEDS: Folic Acid 1 MG TAB PO SCH (21:01)
[2020-12-01 05:06] LABS: Hemoglobin 10.6 g/dL (12.0-16.0); Platelet Count 169 thou/uL (130-400)
[2020-12-01 05:22] LABS: Anion Gap 16 mmol/L (10-20); BUN (Urea Nitrogen) 21 mg/dL (9.8-20.1); Calc. Creatinine Clearance 66 mL/min (70-130); Calcium 9.3 mg/dL (7.8-10.44); Carbon Dioxide 31 mmol/L (23-31); Chloride 99 mmol/L (98-107); Glucose 152 mg/dL (83-110); Potassium 3.4 mmol/L (3.5-5.1); Sodium 143 mmol/L (136-145)
[2020-12-01] MEDS: Furosemide 100 MG/10 ML VIAL SLOW IVP SCH (06:02)
[2020-12-01] MEDS: DEXLANSOPRAZOLE PO SCH (06:57)
[2020-12-01] MEDS: Fluticasone Propionate Nasal Spray 16 gm Bottle NASAL SCH (06:57)
[2020-12-01] MEDS: Mometasone 100 MCG/Formoterol 5 MCG 120 PUFF INHALER INH SCH (07:17)
[2020-12-01] MEDS ORDERED: Potassium Chloride 20 MEQ TAB PO SCH (08:00)
[2020-12-01] MEDS: Carvedilol 25 MG TAB PO SCH ×2 (09:21→17:46)
[2020-12-01] MEDS: Cyanocobalamin (Vitamin B-12) 1,000 MCG TAB PO SCH (09:21)
[2020-12-01] MEDS: Nitroglycerin 0.2mg/Hour PATCH TD SCH (09:21)
[2020-12-01] MEDS: Doxycycline 100 MG CAP PO SCH (09:21)
[2020-12-01] MEDS: Cholecalciferol 1,000 UNITS (25 MCG) TAB PO SCH (09:21)
[2020-12-01] MEDS: Losartan 25 MG TAB PO SCH (09:21)
[2020-12-01] MEDS: Apixaban 5 MG TAB PO SCH (09:21)
[2020-12-01] MEDS: Nystatin 500,000 UNITS/5 ML UDCUP SSW SCH ×3 (09:22→17:46)
[2020-12-01] MEDS: TAPENTADOL HCL 200 MG PO SCH (09:22)
[2020-12-01] MEDS: Potassium Chloride 10 MEQ TAB PO SCH (09:22)
[2020-12-01] MEDS: predniSONE 5 MG TAB PO SCH (09:22)
[2020-12-01] MEDS: Saccharomyces boulardii 250 MG CAP PO SCH (09:22)
[2020-12-01] MEDS: Zinc Sulfate 220 MG CAP PO SCH (09:22)
[2020-12-01] MEDS ORDERED: Torsemide 20 MG TAB PO SCH (14:00)
[2020-12-01 15:11] VITALS: BP 150/67; TEMP 98
[2020-12-01] MEDS ORDERED: Cephalexin 250 MG CAP PO SCH (21:00)
== END 2020-12-01 19:20 | disposition home health service (06) | DRG 602 ==
LOC: ERS 15:51 → 2NO 18:20
PROVIDERS: ADMIT Internal Medicine; ATTEND Internal Medicine
DX: L03.116 Cellulitis of left lower limb (principal); I50.33 Acute on chronic diastolic (congestive) heart failure; I13.0 Hypertensive heart and chronic kidney disease with heart failure and stage 1 through stage 4 chronic kidney disease, or unspecified chronic kidney disease; Z68.41 Body mass index [BMI] 40.0-44.9, adult; N30.00 Acute cystitis without hematuria; L03.115 Cellulitis of right lower limb; Z66 Do not resuscitate; Z20.822 Contact with and (suspected) exposure to COVID-19; I25.10 Atherosclerotic heart disease of native coronary artery without angina pectoris; I48.0 Paroxysmal atrial fibrillation; J44.9 Chronic obstructive pulmonary disease, unspecified; N18.30 Chronic kidney disease, stage 3 unspecified; I87.8 Other specified disorders of veins; G47.33 Obstructive sleep apnea (adult) (pediatric); M31.5 Giant cell arteritis with polymyalgia rheumatica; K21.9 Gastro-esophageal reflux disease without esophagitis; G89.29 Other chronic pain; M54.9 Dorsalgia, unspecified; F32.9 Major depressive disorder, single episode, unspecified; I89.0 Lymphedema, not elsewhere classified; D63.1 Anemia in chronic kidney disease; E87.6 Hypokalemia; E66.01 Morbid (severe) obesity due to excess calories; Z91.19 Patient's noncompliance with other medical treatment and regimen; Z79.01 Long term (current) use of anticoagulants; Z79.899 Other long term (current) drug therapy; Z79.51 Long term (current) use of inhaled steroids; Z88.8 Allergy status to other drugs, medicaments and biological substances; Z88.0 Allergy status to penicillin; Z88.5 Allergy status to narcotic agent; Z88.2 Allergy status to sulfonamides; Z88.1 Allergy status to other antibiotic agents; Z91.018 Allergy to other foods; Z91.048 Other nonmedicinal substance allergy status; Z90.49 Acquired absence of other specified parts of digestive tract; I25.2 Old myocardial infarction; Z98.1 Arthrodesis status; Z98.890 Other specified postprocedural states
CPT/HCPCS: 36415; 71045; 80048; 80053; 80162; 81003; 81015; 82550; 83690; 83735; 83880; 84484; 85014; 85018; 85025; 85049; 87040; 87086; 93005; 93798; 93970; 94760; 96365; 96367; J0696; J1940; J2405; J3370; J3475; J3490; J7512

== ENCOUNTER 2021-01-12 16:40 | Inpatient (IN) | payer MEDICARE ==
[2021-01-12 17:08] LABS: #Eosinphils 0.2 thou/uL (0.0-0.7); #Lymphocytes 1.6 thou/uL (1.20-3.40); #Monocytes 0.7 thou/uL (0.11-0.59); #Neutrophils 5.1 thou/uL (1.40-6.50); %Basophils 0.1 % (0.0-1.0); %Eosinophils 2.8 % (0.0-10.0); %Lymphocytes 21.2 % (21.0-51.0); %Monocytes 8.7 % (0.0-10.0); %Neutrophils 67.2 % (42.0-75.0); Mean Corpuscular Hemoglobin 30.9 pg (27.0-31.0); Mean Corpuscular Volume 93.6 fL (78.0-98.0); Mean Platelet Volume 7.8 fL (7.4-10.4); Platelet Count 189 thou/uL (130-400); RBC Distribution Width 14.9 % (11.5-14.5); Red Blood Cell (RBC) Count 3.25 mill/uL (4.20-5.40); White Blood Cell (WBC) Count 7.6 thou/uL (4.8-10.8)
[2021-01-12 17:34] LABS: ALT (SGPT) 16 U/L (8-55); AST (SGOT) 14 U/L (5-34); Albumin 3.4 g/dL (3.4-4.8); Alkaline Phosphatase 75 U/L (40-110); Anion Gap 12 mmol/L (10-20); BUN (Urea Nitrogen) 28 mg/dL (9.8-20.1); Bilirubin, Total 0.5 mg/dL (0.2-1.2); Calc. Creatinine Clearance 0 mL/min (70-130); Calcium 9.3 mg/dL (7.8-10.44); Carbon Dioxide 33 mmol/L (23-31); Chloride 101 mmol/L (98-107); Globulin 2.7 g/dL (2.4-3.5); Glucose 115 mg/dL (83-110); Potassium 3.6 mmol/L (3.5-5.1); Protein, Total 6.1 g/dL (5.8-8.1); Sodium 142 mmol/L (136-145)
[2021-01-12 20:42] LABS: Troponin I Less than 0.010 ng/mL (< 0.028)
[2021-01-12 22:36] LABS: SARS-CoV-2 NAA Rapid Test Not Detected (NotDetected)
[2021-01-12] MEDS ORDERED: Ondansetron PF 4 MG/2 ML Vial IVP PRN (22:59)
[2021-01-12] MEDS ORDERED: Ondansetron ODT 4 MG TAB PO PRN (22:59)
[2021-01-12] MEDS ORDERED: Furosemide 40 MG/4 ML VIAL SLOW IVP SCH (23:15)
[2021-01-12 23:24] LABS: Troponin I Less than 0.010 ng/mL (< 0.028)
[2021-01-13 06:01] LABS: #Eosinphils 0.3 thou/uL (0.0-0.7); #Lymphocytes 2.1 thou/uL (1.20-3.40); #Neutrophils 4.8 thou/uL (1.40-6.50); %Basophils 0.2 % (0.0-1.0); %Eosinophils 4.2 % (0.0-10.0); %Lymphocytes 25.3 % (21.0-51.0); %Monocytes 11.7 % (0.0-10.0); %Neutrophils 58.5 % (42.0-75.0); Mean Corpuscular HGB CONC 32.1 g/dL (32.0-36.0); Mean Corpuscular Volume 93.4 fL (78.0-98.0); Mean Platelet Volume 7.7 fL (7.4-10.4); Platelet Count 179 thou/uL (130-400); Red Blood Cell (RBC) Count 3.32 mill/uL (4.20-5.40); White Blood Cell (WBC) Count 8.1 thou/uL (4.8-10.8)
[2021-01-13 06:09] LABS: Anion Gap 11 mmol/L (10-20); BUN (Urea Nitrogen) 21 mg/dL (9.8-20.1); Calc. Creatinine Clearance 0 mL/min (70-130); Calcium 9.3 mg/dL (7.8-10.44); Carbon Dioxide 36 mmol/L (23-31); Chloride 102 mmol/L (98-107); Glucose 120 mg/dL (83-110); Potassium 3.1 mmol/L (3.5-5.1); Sodium 146 mmol/L (136-145)
[2021-01-13] MEDS: Carvedilol 25 MG TAB PO SCH ×2 (08:19→17:48)
[2021-01-13] MEDS: Apixaban 5 MG TAB PO SCH ×2 (08:19→21:38)
[2021-01-13] MEDS: Losartan 25 MG TAB PO SCH ×2 (08:19→21:38)
[2021-01-13] MEDS ORDERED: Furosemide 40 MG/4 ML VIAL SLOW IVP SCH (09:00)
[2021-01-13] MEDS ORDERED: predniSONE 5 MG TAB PO SCH (09:15)
[2021-01-13] MEDS ORDERED: Potassium Chloride 20 MEQ TAB PO SCH (09:15)
[2021-01-13] MEDS: HYDROmorphone 2 MG TAB PO PRN (10:06)
[2021-01-13] MEDS ORDERED: Furosemide 100 MG in Sodium Chloride 0.9% 90 ML IVPB SCH (13:30)
[2021-01-13] MEDS ORDERED: Torsemide 20 MG TAB PO SCH (14:00)
[2021-01-13] MEDS ORDERED: Dexlansoprazole [Dexilant] 60 MG Cap.Dr.Bp PO SCH (16:00)
[2021-01-13] MEDS: Potassium Chloride 20 MEQ TAB PO SCH (17:48)
[2021-01-13 18:24] LABS: Anion Gap 9 mmol/L (10-20); BUN (Urea Nitrogen) 18 mg/dL (9.8-20.1); Calc. Creatinine Clearance 0 mL/min (70-130); Calcium 9.1 mg/dL (7.8-10.44); Carbon Dioxide 36 mmol/L (23-31); Chloride 100 mmol/L (98-107); Glucose 131 mg/dL (83-110); Potassium 3.4 mmol/L (3.5-5.1); Sodium 142 mmol/L (136-145)
[2021-01-13] MEDS: ' INH SCH (20:15)
[2021-01-13] MEDS: Pramipexole Di-HCl 0.25 MG TAB PO SCH (21:37)
[2021-01-13] MEDS: Montelukast Sodium 10 mg Tablet PO SCH (21:38)
[2021-01-13] MEDS: Melatonin 3 MG TAB PO SCH (21:38)
[2021-01-13] MEDS: Saccharomyces boulardii 250 MG CAP PO SCH (21:38)
[2021-01-13] MEDS: Cephalexin 250 MG CAP PO SCH (21:38)
[2021-01-13] MEDS: predniSONE 5 MG TAB PO SCH (21:38)
[2021-01-13] MEDS: DULoxetine 30 MG CAP PO SCH (21:38)
[2021-01-13] MEDS: TAPENTADOL HCL 200 MG PO SCH (22:24)
[2021-01-14 04:29] LABS: #Eosinphils 0.2 thou/uL (0.0-0.7); #Lymphocytes 1.9 thou/uL (1.20-3.40); #Monocytes 0.6 thou/uL (0.11-0.59); #Neutrophils 5.3 thou/uL (1.40-6.50); %Basophils 0.5 % (0.0-1.0); %Eosinophils 2.4 % (0.0-10.0); %Lymphocytes 23.3 % (21.0-51.0); %Monocytes 7.8 % (0.0-10.0); Hemoglobin 10.4 g/dL (12.0-16.0); Mean Corpuscular HGB CONC 32.5 g/dL (32.0-36.0); Mean Corpuscular Hemoglobin 30.5 pg (27.0-31.0); Mean Corpuscular Volume 93.8 fL (78.0-98.0); Platelet Count 181 thou/uL (130-400); RBC Distribution Width 15.3 % (11.5-14.5); Red Blood Cell (RBC) Count 3.41 mill/uL (4.20-5.40)
[2021-01-14 04:55] LABS: Anion Gap 12 mmol/L (10-20); BUN (Urea Nitrogen) 17 mg/dL (9.8-20.1); Calc. Creatinine Clearance 0 mL/min (70-130); Carbon Dioxide 34 mmol/L (23-31); Chloride 99 mmol/L (98-107); Glucose 180 mg/dL (83-110); Phosphorus 3.5 mg/dL (2.3-4.7); Potassium 3.5 mmol/L (3.5-5.1); Sodium 141 mmol/L (136-145)
[2021-01-14] MEDS: ' INH SCH ×2 (07:39→19:01)
[2021-01-14] MEDS: Dexlansoprazole [Dexilant] 60 MG Cap.Dr.Bp PO SCH (08:58)
[2021-01-14] MEDS: Cyanocobalamin (Vitamin B-12) 1,000 MCG TAB PO SCH (09:00)
[2021-01-14] MEDS: Carvedilol 25 MG TAB PO SCH ×2 (09:00→17:26)
[2021-01-14] MEDS: Cephalexin 250 MG CAP PO SCH ×2 (09:00→20:11)
[2021-01-14] MEDS: Saccharomyces boulardii 250 MG CAP PO SCH ×2 (09:00→20:12)
[2021-01-14] MEDS: Apixaban 5 MG TAB PO SCH ×2 (09:00→20:11)
[2021-01-14] MEDS: TAPENTADOL HCL 200 MG PO SCH ×2 (09:00→20:12)
[2021-01-14] MEDS ORDERED: Non-Formulary Item 1 EACH (Fluticasone/Vilanterol [Breo Ellipta] 100 MCG/25 MCG Blst.W.De INH SCH (09:00)
[2021-01-14] MEDS ORDERED: Non-Formulary Item 1 EACH (Cyanocobalamin (Vitamin B-12) [Vitamin B12] 2,500 MCG Tab.Chew PO SCH (09:00)
[2021-01-14] MEDS: Losartan 25 MG TAB PO SCH ×2 (09:00→20:11)
[2021-01-14] MEDS ORDERED: Non-Formulary Item 1 EACH (Dexlansoprazole [Dexilant] 60 MG Cap.Dr.Bp) PO SCH (09:00)
[2021-01-14] MEDS: predniSONE 5 MG TAB PO SCH ×2 (09:01→20:11)
[2021-01-14] MEDS: Potassium Chloride 20 MEQ TAB PO SCH ×3 (09:03→17:26)
[2021-01-14] MEDS ORDERED: Furosemide 40 MG/4 ML VIAL SLOW IVP SCH (14:00)
[2021-01-14 19:16] LABS: Anion Gap 10 mmol/L (10-20); BUN (Urea Nitrogen) 17 mg/dL (9.8-20.1); Calc. Creatinine Clearance 71 mL/min (70-130); Calcium 8.9 mg/dL (7.8-10.44); Carbon Dioxide 34 mmol/L (23-31); Chloride 101 mmol/L (98-107); Glucose 161 mg/dL (83-110); Potassium 3.7 mmol/L (3.5-5.1); Sodium 141 mmol/L (136-145)
[2021-01-14] MEDS: DULoxetine 30 MG CAP PO SCH (20:11)
[2021-01-14] MEDS: Montelukast Sodium 10 mg Tablet PO SCH (20:12)
[2021-01-14] MEDS: Pramipexole Di-HCl 0.25 MG TAB PO SCH (20:12)
[2021-01-14] MEDS: Melatonin 3 MG TAB PO SCH (20:12)
[2021-01-15 03:34] LABS: #Eosinphils 0.3 thou/uL (0.0-0.7); #Lymphocytes 1.4 thou/uL (1.20-3.40); #Monocytes 0.8 thou/uL (0.11-0.59); %Basophils 0.3 % (0.0-1.0); %Eosinophils 3.5 % (0.0-10.0); %Lymphocytes 16.8 % (21.0-51.0); %Monocytes 9.6 % (0.0-10.0); %Neutrophils 69.8 % (42.0-75.0); Hemoglobin 9.9 g/dL (12.0-16.0); Mean Corpuscular HGB CONC 32.2 g/dL (32.0-36.0); Mean Corpuscular Hemoglobin 30.4 pg (27.0-31.0); Mean Corpuscular Volume 94.4 fL (78.0-98.0); Mean Platelet Volume 7.7 fL (7.4-10.4); Platelet Count 172 thou/uL (130-400); RBC Distribution Width 15.1 % (11.5-14.5); Red Blood Cell (RBC) Count 3.26 mill/uL (4.20-5.40); White Blood Cell (WBC) Count 8.6 thou/uL (4.8-10.8)
[2021-01-15 03:57] LABS: Anion Gap 9 mmol/L (10-20); BUN (Urea Nitrogen) 18 mg/dL (9.8-20.1); Calc. Creatinine Clearance 73 mL/min (70-130); Calcium 8.9 mg/dL (7.8-10.44); Carbon Dioxide 36 mmol/L (23-31); Chloride 102 mmol/L (98-107); Glucose 125 mg/dL (83-110); Magnesium 2.1 mg/dL (1.6-2.6); Sodium 143 mmol/L (136-145)
[2021-01-15] MEDS: Dexlansoprazole [Dexilant] 60 MG Cap.Dr.Bp PO SCH (07:00)
[2021-01-15] MEDS: ' INH SCH ×2 (07:57→19:34)
[2021-01-15] MEDS: Potassium Chloride 20 MEQ TAB PO SCH (08:59)
[2021-01-15] MEDS: Furosemide 40 MG/4 ML VIAL SLOW IVP SCH (08:59)
[2021-01-15] MEDS: TAPENTADOL HCL 200 MG PO SCH ×3 (08:59→21:11)
[2021-01-15] MEDS: predniSONE 5 MG TAB PO SCH ×2 (08:59→20:07)
[2021-01-15] MEDS: Saccharomyces boulardii 250 MG CAP PO SCH ×2 (09:00→20:06)
[2021-01-15] MEDS: Cyanocobalamin (Vitamin B-12) 1,000 MCG TAB PO SCH (09:00)
[2021-01-15] MEDS: Losartan 25 MG TAB PO SCH ×2 (09:00→20:07)
[2021-01-15] MEDS: Ammonium Lactate 12% Lotion 225 GM BOT TOP SCH ×2 (09:00→20:12)
[2021-01-15] MEDS: Cephalexin 250 MG CAP PO SCH ×2 (09:00→20:06)
[2021-01-15] MEDS: Apixaban 5 MG TAB PO SCH ×2 (09:00→20:07)
[2021-01-15] MEDS: Carvedilol 25 MG TAB PO SCH ×2 (09:00→17:40)
[2021-01-15] MEDS: Montelukast Sodium 10 mg Tablet PO SCH (20:06)
[2021-01-15] MEDS: DULoxetine 30 MG CAP PO SCH (20:07)
[2021-01-15] MEDS: Pramipexole Di-HCl 0.25 MG TAB PO SCH (20:07)
[2021-01-15] MEDS: Melatonin 3 MG TAB PO SCH (21:11)
[2021-01-16 04:44] LABS: Anion Gap 10 mmol/L (10-20); BUN (Urea Nitrogen) 17 mg/dL (9.8-20.1); Calc. Creatinine Clearance 82 mL/min (70-130); Calcium 8.9 mg/dL (7.8-10.44); Carbon Dioxide 34 mmol/L (23-31); Chloride 101 mmol/L (98-107); Glucose 130 mg/dL (83-110); Potassium 4.1 mmol/L (3.5-5.1); Sodium 141 mmol/L (136-145)
[2021-01-16] MEDS: HYDROmorphone 2 MG TAB PO PRN (09:21)
[2021-01-16] MEDS: Furosemide 40 MG/4 ML VIAL SLOW IVP SCH (09:21)
[2021-01-16] MEDS: TAPENTADOL HCL 200 MG PO SCH ×2 (09:21→21:02)
[2021-01-16] MEDS: Saccharomyces boulardii 250 MG CAP PO SCH ×2 (09:22→21:01)
[2021-01-16] MEDS: Potassium Chloride 20 MEQ TAB PO SCH (09:22)
[2021-01-16] MEDS: Apixaban 5 MG TAB PO SCH ×2 (09:22→21:02)
[2021-01-16] MEDS: predniSONE 5 MG TAB PO SCH ×2 (09:22→21:02)
[2021-01-16] MEDS: Cephalexin 250 MG CAP PO SCH ×2 (09:22→21:02)
[2021-01-16] MEDS: Cyanocobalamin (Vitamin B-12) 1,000 MCG TAB PO SCH (09:22)
[2021-01-16] MEDS: Losartan 25 MG TAB PO SCH ×2 (09:22→21:02)
[2021-01-16] MEDS: Carvedilol 25 MG TAB PO SCH ×2 (09:23→17:06)
[2021-01-16] MEDS: Ammonium Lactate 12% Lotion 225 GM BOT TOP SCH ×2 (09:23→21:03)
[2021-01-16] MEDS: Dexlansoprazole [Dexilant] 60 MG Cap.Dr.Bp PO SCH (09:39)
[2021-01-16] MEDS: ' INH SCH ×2 (10:24→20:07)
[2021-01-16] MEDS: Montelukast Sodium 10 mg Tablet PO SCH (21:02)
[2021-01-16] MEDS: Pramipexole Di-HCl 0.25 MG TAB PO SCH (21:02)
[2021-01-16] MEDS: Melatonin 3 MG TAB PO SCH (21:02)
[2021-01-16] MEDS: DULoxetine 30 MG CAP PO SCH (21:03)
[2021-01-17 05:06] LABS: Anion Gap 11 mmol/L (10-20); BUN (Urea Nitrogen) 19 mg/dL (9.8-20.1); Calc. Creatinine Clearance 80 mL/min (70-130); Calcium 9.1 mg/dL (7.8-10.44); Carbon Dioxide 34 mmol/L (23-31); Chloride 100 mmol/L (98-107); Glucose 131 mg/dL (83-110); Potassium 3.8 mmol/L (3.5-5.1); Sodium 141 mmol/L (136-145)
[2021-01-17] MEDS: ' INH SCH ×2 (07:10→19:17)
[2021-01-17] MEDS: Ammonium Lactate 12% Lotion 225 GM BOT TOP SCH ×2 (09:22→21:26)
[2021-01-17] MEDS: Losartan 25 MG TAB PO SCH ×2 (09:22→21:27)
[2021-01-17] MEDS: Potassium Chloride 20 MEQ TAB PO SCH (09:22)
[2021-01-17] MEDS: Apixaban 5 MG TAB PO SCH ×2 (09:22→21:27)
[2021-01-17] MEDS: Saccharomyces boulardii 250 MG CAP PO SCH ×2 (09:22→21:27)
[2021-01-17] MEDS: Cyanocobalamin (Vitamin B-12) 1,000 MCG TAB PO SCH (09:23)
[2021-01-17] MEDS: Furosemide 40 MG/4 ML VIAL SLOW IVP SCH (09:23)
[2021-01-17] MEDS: Carvedilol 25 MG TAB PO SCH ×2 (09:23→17:09)
[2021-01-17] MEDS: Dexlansoprazole [Dexilant] 60 MG Cap.Dr.Bp PO SCH (09:23)
[2021-01-17] MEDS: predniSONE 5 MG TAB PO SCH ×2 (09:23→21:27)
[2021-01-17] MEDS: Cephalexin 250 MG CAP PO SCH ×2 (09:23→21:27)
[2021-01-17] MEDS: HYDROmorphone 2 MG TAB PO PRN (09:23)
[2021-01-17] MEDS: TAPENTADOL HCL 200 MG PO SCH ×2 (09:24→21:25)
[2021-01-17] MEDS: Montelukast Sodium 10 mg Tablet PO SCH (21:26)
[2021-01-17] MEDS: Pramipexole Di-HCl 0.25 MG TAB PO SCH (21:26)
[2021-01-17] MEDS: DULoxetine 30 MG CAP PO SCH (21:27)
[2021-01-17] MEDS: Melatonin 3 MG TAB PO SCH (21:27)
[2021-01-18] MEDS: ' INH SCH ×2 (07:54→18:46)
[2021-01-18] MEDS: Dexlansoprazole [Dexilant] 60 MG Cap.Dr.Bp PO SCH (08:34)
[2021-01-18] MEDS: Losartan 25 MG TAB PO SCH ×2 (09:01→22:23)
[2021-01-18] MEDS: Furosemide 40 MG/4 ML VIAL SLOW IVP SCH (09:01)
[2021-01-18] MEDS: TAPENTADOL HCL 200 MG PO SCH ×2 (09:01→22:54)
[2021-01-18] MEDS: predniSONE 5 MG TAB PO SCH ×2 (09:02→22:23)
[2021-01-18] MEDS: Saccharomyces boulardii 250 MG CAP PO SCH ×2 (09:02→22:22)
[2021-01-18] MEDS: Carvedilol 25 MG TAB PO SCH ×2 (09:02→17:57)
[2021-01-18] MEDS: Potassium Chloride 20 MEQ TAB PO SCH (09:02)
[2021-01-18] MEDS: Cyanocobalamin (Vitamin B-12) 1,000 MCG TAB PO SCH (09:02)
[2021-01-18] MEDS: Apixaban 5 MG TAB PO SCH ×2 (09:02→22:23)
[2021-01-18] MEDS: Cephalexin 250 MG CAP PO SCH ×2 (09:02→22:22)
[2021-01-18] MEDS: Ammonium Lactate 12% Lotion 225 GM BOT TOP SCH ×2 (09:12→22:21)
[2021-01-18 14:28] VITALS: BMI 43.4
[2021-01-18] MEDS: Montelukast Sodium 10 mg Tablet PO SCH ×2 (22:22→22:23)
[2021-01-18] MEDS: Pramipexole Di-HCl 0.25 MG TAB PO SCH (22:22)
[2021-01-18] MEDS: Melatonin 3 MG TAB PO SCH (22:23)
[2021-01-18] MEDS: DULoxetine 30 MG CAP PO SCH (22:23)
[2021-01-19] MEDS: ' INH SCH ×2 (07:52→18:46)
[2021-01-19] MEDS: Dexlansoprazole [Dexilant] 60 MG Cap.Dr.Bp PO SCH (07:54)
[2021-01-19] MEDS: predniSONE 5 MG TAB PO SCH (09:33)
[2021-01-19] MEDS: Saccharomyces boulardii 250 MG CAP PO SCH (09:33)
[2021-01-19] MEDS: Apixaban 5 MG TAB PO SCH (09:33)
[2021-01-19] MEDS: Losartan 25 MG TAB PO SCH (09:33)
[2021-01-19] MEDS: Cephalexin 250 MG CAP PO SCH (09:34)
[2021-01-19] MEDS: Cyanocobalamin (Vitamin B-12) 1,000 MCG TAB PO SCH (09:34)
[2021-01-19] MEDS: Potassium Chloride 20 MEQ TAB PO SCH (09:34)
[2021-01-19] MEDS: Carvedilol 25 MG TAB PO SCH ×2 (09:34→16:38)
[2021-01-19] MEDS: TAPENTADOL HCL 200 MG PO SCH (09:34)
[2021-01-19] MEDS: Furosemide 40 MG/4 ML VIAL SLOW IVP SCH (09:34)
[2021-01-19] MEDS: Ammonium Lactate 12% Lotion 225 GM BOT TOP SCH (09:45)
[2021-01-19 13:58] LABS: #Eosinphils 0.3 thou/uL (0.0-0.7); #Lymphocytes 1.2 thou/uL (1.20-3.40); #Monocytes 0.8 thou/uL (0.11-0.59); #Neutrophils 5.9 thou/uL (1.40-6.50); %Basophils 0.1 % (0.0-1.0); %Eosinophils 3.4 % (0.0-10.0); %Lymphocytes 14.3 % (21.0-51.0); %Monocytes 9.7 % (0.0-10.0); %Neutrophils 72.4 % (42.0-75.0); Hemoglobin 10.6 g/dL (12.0-16.0); Mean Corpuscular HGB CONC 32.6 g/dL (32.0-36.0); Mean Corpuscular Hemoglobin 30.2 pg (27.0-31.0); Mean Corpuscular Volume 92.9 fL (78.0-98.0); Mean Platelet Volume 7.8 fL (7.4-10.4); Platelet Count 216 thou/uL (130-400); RBC Distribution Width 15.1 % (11.5-14.5); White Blood Cell (WBC) Count 8.2 thou/uL (4.8-10.8)
[2021-01-19 14:20] LABS: Anion Gap 13 mmol/L (10-20); BUN (Urea Nitrogen) 20 mg/dL (9.8-20.1); Calc. Creatinine Clearance 85 mL/min (70-130); Calcium 9.7 mg/dL (7.8-10.44); Carbon Dioxide 33 mmol/L (23-31); Chloride 101 mmol/L (98-107); Glucose 103 mg/dL (83-110); Potassium 3.8 mmol/L (3.5-5.1); Sodium 143 mmol/L (136-145)
[2021-01-19 15:39] VITALS: TEMP 97.8
[2021-01-19 18:24] VITALS: BP 157/67
== END 2021-01-19 20:46 | DRG 291 ==
LOC: ERS 16:40 → ERHOLD 19:36 → T4-B 01-13 00:53 → 2NO 01-13 17:21
PROVIDERS: ADMIT Student in an Organized Health Care Education/Training Program; ATTEND Internal Medicine
DX: I13.0 Hypertensive heart and chronic kidney disease with heart failure and stage 1 through stage 4 chronic kidney disease, or unspecified chronic kidney disease (principal); I50.33 Acute on chronic diastolic (congestive) heart failure; N17.9 Acute kidney failure, unspecified; Z68.41 Body mass index [BMI] 40.0-44.9, adult; L03.116 Cellulitis of left lower limb; L03.115 Cellulitis of right lower limb; N18.30 Chronic kidney disease, stage 3 unspecified; Z20.822 Contact with and (suspected) exposure to COVID-19; M31.5 Giant cell arteritis with polymyalgia rheumatica; K21.9 Gastro-esophageal reflux disease without esophagitis; M19.90 Unspecified osteoarthritis, unspecified site; M54.9 Dorsalgia, unspecified; F32.9 Major depressive disorder, single episode, unspecified; M81.0 Age-related osteoporosis without current pathological fracture; I48.0 Paroxysmal atrial fibrillation; I25.10 Atherosclerotic heart disease of native coronary artery without angina pectoris; G47.33 Obstructive sleep apnea (adult) (pediatric); I87.8 Other specified disorders of veins; E66.01 Morbid (severe) obesity due to excess calories; G89.4 Chronic pain syndrome; D63.1 Anemia in chronic kidney disease; E87.6 Hypokalemia; Z88.0 Allergy status to penicillin; Z88.2 Allergy status to sulfonamides; Z88.1 Allergy status to other antibiotic agents; Z88.8 Allergy status to other drugs, medicaments and biological substances; Z88.5 Allergy status to narcotic agent; Z91.018 Allergy to other foods; Z91.048 Other nonmedicinal substance allergy status; I25.2 Old myocardial infarction; Z90.49 Acquired absence of other specified parts of digestive tract; Z98.1 Arthrodesis status; Z98.890 Other specified postprocedural states; Z79.01 Long term (current) use of anticoagulants; Z79.51 Long term (current) use of inhaled steroids; Z79.899 Other long term (current) drug therapy; Z85.828 Personal history of other malignant neoplasm of skin
CPT/HCPCS: 0240U; 36415; 36416; 71046; 80048; 80053; 83735; 83880; 84100; 84484; 85025; 85379; 93005; 93010; 97139; J1940; J7512